=== PATIENT | female | born 1930 | race Caucasian/White ===

== ENCOUNTER 2016-08-13 13:23 | Emergency (ER) | payer MEDICARE, BC ==
[2016-08-13] MEDS ORDERED: Sodium Chloride 0.9% 1,000 ML IV STA (15:39)
--- NOTE | 2016-08-13 15:46 | EDM.PDOC ---
ED HPI GI/ABDOMINAL - General Chief Complaint: Abdominal Pain Stated Complaint: HAS A COLOSTOMY BAG/SOMETHING WRONG Time Seen by Provider: 08/13/16 15:20 Source: Reports: Patient, RN notes reviewed History Limitations: Reports: Physical impairment - History of Present Illness INITIAL COMMENTS - FREE TEXT/NARRATIVE: 86-year-old female presents emergency Department day complaint of stool in her colostomy bag and stool per rectum she had a colostomy done in 2004 she states she's never had this issue before she is producing formed stool in the rectum she does feel the urge to defecate, she is also complaining of hip pain and generalized abdominal discomfort difficult to obtain review of systems secondary to hearing deficit - Related Data Allergies/ADRs: Allergies Allergy/AdvReac Type Severity Reaction Status Date / Time celecoxib [From Celebrex] AdvReac Nausea Verified 08/13/16 14:55 leflunomide [From Arava] AdvReac Diarrhea Verified 08/13/16 14:55 venlafaxine HCl AdvReac Nausea Verified 08/13/16 14:55 [From Effexor] Home Meds: Home Meds Docusate Sodium [Colace] 200 mg PO BID PRN 04/14/13 [History] Dorzolamide HCl [Trusopt] 1 drop EYEBOTH BID 04/14/13 [History] Folic Acid/Vitamin B Comp W-C [Nephrocaps Softgel] 1 mg PO DAILY 04/14/13 [ History] Levothyroxine [Synthroid] 75 mcg PO ACBRK 04/14/13 [History] Multivitamin [Multi-Vitamin Daily] 1 each PO DAILY 04/14/13 [History] Niacin [Niaspan] 500 mg PO BID 04/14/13 [History] Potassium Chloride [Klor-Con M20] 20 meq PO DAILY 04/14/13 [History] Simvastatin [Zocor] 20 mg PO BEDTIME 04/14/13 [History] predniSONE [Prednisone] 5 mg PO DAILY 04/14/13 [History] Folic Acid 1 mg PO DAILY 01/18/14 [History] Cholecalciferol (Vitamin D3) [Vitamin D3] 1,000 unit PO DAILY 04/15/14 [History] Furosemide [Lasix] 40 mg PO BID 06/03/14 [History] Hydrocodone/Acetaminophen [Hydrocodon-Acetaminophn 10-325] 1 each PO Q6HR PRN [History] Calcium Carbonate/Vitamin D3 [Calcium 600 + Vit D 400 Softgl] 1 cap PO BID 03/29 [History] Ferrous Sulfate 325 mg PO DAILY 03/29/15 [History] Omeprazole 20 mg PO QAM 03/29/15 [History] Warfarin [Coumadin] 1.5 mg PO MOWETHFRSA 10/30/15 [History] Warfarin [Coumadin] 2.5 mg PO ASDIRECTED 10/30/15 [History] Diltiazem HCl [Diltiazem 24Hr Cd] 300 mg PO BEDTIME #90 cap.er.24h 06/07/16 [Rx] Metoprolol Succinate [Toprol XL] 50 mg PO DAILY #90 tab.er 06/07/16 [Rx] Digoxin 1 tab PO ASDIRECTED 08/13/16 [History] tiZANidine HCl [Tizanidine HCl] 4 mg PO DAILY 08/13/16 [History] Past Medical History HEENT History: Reports: Cataract, Glaucoma, Impaired vision Cardiovascular History: Reports: Afib, Arrhythmia, Blood clots/VTE/DVT, Heart murmur, High cholesterol, Hypertension, Pacemaker Gastrointestinal History: Reports: Chronic constipation, GERD Genitourinary History: Reports: Renal disease 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: Musculoskeletal History: Reports: Amputation, Arthritis, Fracture Endocrine/Metabolic History: Reports: Hypothyroidism Hematologic History: Reports: Blood transfusion(s) Oncologic (Cancer) History: Reports: Basal cell carcinoma Dermatologic History: Reports: None - Infectious Disease History Infectious Disease History: Reports: Chicken pox, Measles - Past Surgical History HEENT Surgical History: Reports: Cataract surgery, Other (see below) Other HEENT Surgeries/Procedures: dysphagia Cardiovascular Surgical History: Reports: None GI Surgical History: Reports: Colonoscopy, Rae fundoplication, Small bowel Female Surgical History: Reports: Hysterectomy Endocrine Surgical History: Reports: None Musculoskeletal Surgical History: Reports: Amputation, Carpal tunnel, Knee replacement Dermatological Surgical History: Reports: Skin biopsy Social & Family History - Family History Family Medical History: Noncontributory - Tobacco Use Smoking Status *Q: Never Smoker Second Hand Smoke Exposure: No - Caffeine Use Caffeine Use: Reports: Coffee Other Caffeine Use: rarely - Alcohol Use Days Per Week of Alcohol Use: 0 Number of Drinks Per Day: 0 Total Drinks Per Week: 0 - Recreational Drug Use Recreational Drug Use: No - Living Situation & Occupation Living situation: Reports: , with spouse Occupation: retired ED ROS GENERAL - Review of Systems Review Of Systems: Unable To Obtain ED EXAM, GI/ABD - Physical Exam Exam: See Below Text/Narrative:: General: female, not in any distress, alert and oriented x3 HEENT: head is atraumatic normocephalic, eyes pupils equal round reactive to light andpostsurgical changes noted to the left inferior and superior lids lateral aspect. Ears tympanic membranes clear and posada landmarks and light reflex are present bilaterally canals are clear. Nose no septal deviation, nares are clear , no blood present. Mouth mucosa is moist and pink no erythema or exudate noted in soft palate, tongue is midline uvula is midline, dentures in place. Neck: Supple no thyromegaly no tracheal deviation. Nodes: Cervical nodes subclavicular nodes nontender no palpable lymphadenopathy noted. Lungs: clear to auscultation bilaterally with symmetrical respirations, no adventitious noise appreciated. CV: Regular rate and rhythm S1 and S2 appreciated no murmurs rubs or gallops noted. Abdomen: Soft, generalized tenderness to palpation left lower quadrant, no palpable masses or organomegaly appreciated, no distention no guarding bowel sounds are present, colostomy bag in place open and functioning. Neuro: Cranial nerves II through XII grossly intact Skin: Warm and dry, intact Extremities: No lower extremity edema appreciated, Course - Vital Signs Last Recorded V/S: Last Vital Signs Temp 98.4 F 08/13/16 14:44 Pulse 97 08/13/16 17:59 Resp 20 08/13/16 17:59 BP 207/115 H 08/13/16 17:59 Pulse Ox 98 08/13/16 17:59 - Orders/Labs/Meds Orders: Active Orders 24 hr Category Date Time Status Peripheral IV Care [RC] . DIRECTED Care 08/13/16 15:41 Active Abdomen Pelvis w Cont [CT] Urgent Exams 08/13/16 16:31 Taken Iopamidol [Isovue-300 (61%)] Med 08/13/16 16:30 Active 70 ml IV . DIRECTED PRN Sodium Chloride 0.9% [Normal Saline] 70 ml Med 08/13/16 16:30 Active IV ASDIRECTED Sodium Chloride 0.9% [Saline Flush] Med 08/13/16 15:39 Active 10 ml FLUSH ASDIRECTED PRN Peripheral IV Insertion Adult [OM.PC] Urgent Oth 08/13/16 15:39 Ordered Medication Orders Sodium Chloride (Normal Saline) 70 mls @ 3 mls/sec IV ASDIRECTED ALICIA Last Admin: 08/13/16 16:50 Dose: 3 mls/sec Iopamidol (Isovue-300 (61%)) 70 ml IV . DIRECTED PRN PRN Reason: RADIOLOGY EXAM Stop: 08/14/16 16:31 Last Admin: 08/13/16 16:50 Dose: 70 ml Sodium Chloride (Saline Flush) 10 ml FLUSH ASDIRECTED PRN PRN Reason: Keep Vein Open Last Admin: 08/13/16 16:50 Dose: 10 ml Admin: 08/13/16 16:33 Dose: 10 ml Labs: Laboratory Tests 08/13/16 08/13/16 08/13/16 Range/Units 15:56 15:56 15:56 WBC 6.7 (4.5-11.0) K/uL RBC 4.71 (3.30-5.50) M/uL Hgb 13.7 (12.0-15.0) g/dL Hct 43.7 (36.0-48.0) % MCV 93 (80-98) fL MCH 29 (27-31) pg MCHC 31 L (32-36) % Plt Count 233 (150-400) K/uL Neut % (Auto) 78 H (36-66) % Lymph % (Auto) 18 L (24-44) % [place] % (Auto) 3 (2-6) % Eos % (Auto) 1 L (2-4) % Baso % (Auto) 0 (0-1) % Sodium 141 (140-148) mmol/L Potassium 5.2 (3.6-5.2) mmol/L Chloride 107 (100-108) mmol/L Carbon Dioxide 26 (21-32) mmol/L Anion Gap 8.2 (5.0-14.0) mmol/L BUN 20 H (7-18) mg/dL Creatinine 1.2 H (0.6-1.0) mg/dL Est Cr Clr Drug Dosing 24.62 mL/min Estimated GFR (MDRD) 43 L (>60) Glucose 105 (74-106) mg/dL Lactic Acid 1.4 (0.4-2.0) mmol/L Calcium 8.2 L (8.5-10.1) mg/dL Total Bilirubin 0.3 (0.2-1.0) mg/dL AST 19 (15-37) U/L ALT 20 (12-78) U/L Alkaline Phosphatase 37 L (46-116) U/L Total Protein 7.8 (6.4-8.2) g/dL Albumin 3.1 L (3.4-5.0) g/dL Globulin 4.7 H (2.3-3.5) g/dL Albumin/Globulin Ratio 0.7 L (1.2-2.2) Lipase 209 (73-393) U/L Urine Color Urine Appearance Urine pH (4.5-8.0) Ur Specific [place] (1.008-1.030) Urine Protein (NEGATIVE) mg/dL Urine Glucose (UA) (NEGATIVE) mg/dL Urine Ketones (NEGATIVE) mg/dL Urine Occult Blood (NEGATIVE) Urine Nitrite (NEGATIVE) Urine Bilirubin (NEGATIVE) Urine Urobilinogen (NORMAL) mg/dL Ur Leukocyte Esterase (NEGATIVE) Urine RBC (0-5) Urine WBC (0-5) Ur Epithelial Cells Amorphous Sediment Urine Bacteria Urine Mucus 08/13/16 Range/Units 16:13 WBC (4.5-11.0) K/uL RBC (3.30-5.50) M/uL Hgb (12.0-15.0) g/dL Hct (36.0-48.0) % MCV (80-98) fL MCH (27-31) pg MCHC (32-36) % Plt Count (150-400) K/uL Neut % (Auto) (36-66) % Lymph % (Auto) (24-44) % [place] % (Auto) (2-6) % Eos % (Auto) (2-4) % Baso % (Auto) (0-1) % Sodium (140-148) mmol/L Potassium (3.6-5.2) mmol/L Chloride (100-108) mmol/L Carbon Dioxide (21-32) mmol/L Anion Gap (5.0-14.0) mmol/L BUN (7-18) mg/dL Creatinine (0.6-1.0) mg/dL Est Cr Clr Drug Dosing mL/min Estimated GFR (MDRD) (>60) Glucose (74-106) mg/dL Lactic Acid (0.4-2.0) mmol/L Calcium (8.5-10.1) mg/dL Total Bilirubin (0.2-1.0) mg/dL AST (15-37) U/L ALT (12-78) U/L Alkaline Phosphatase (46-116) U/L Total Protein (6.4-8.2) g/dL Albumin (3.4-5.0) g/dL Globulin (2.3-3.5) g/dL Albumin/Globulin Ratio (1.2-2.2) Lipase (73-393) U/L Urine Color Yellow Urine Appearance Clear Urine pH 7.0 (4.5-8.0) Ur Specific [place] 1.015 (1.008-1.030) Urine Protein Negative (NEGATIVE) mg/dL Urine Glucose (UA) Normal (NEGATIVE) mg/dL Urine Ketones Negative (NEGATIVE) mg/dL Urine Occult Blood Negative (NEGATIVE) Urine Nitrite Negative (NEGATIVE) Urine Bilirubin Negative (NEGATIVE) Urine Urobilinogen Normal (NORMAL) mg/dL Ur Leukocyte Esterase Negative (NEGATIVE) Urine RBC 0-5 (0-5) Urine WBC 0-5 (0-5) Ur Epithelial Cells Few Amorphous Sediment Not seen Urine Bacteria Few Urine Mucus Not seen Meds: Medications Generic Name Dose Route Start Last Admin Trade Name Freq PRN Reason Stop Dose Admin Sodium Chloride 70 mls @ 3 mls/sec 08/13/16 16:30 08/13/16 16:50 Normal Saline IV 3 mls/sec ASDIRECTED ALICIA Administration Iopamidol 70 ml 08/13/16 16:30 08/13/16 16:50 Isovue-300 (61%) IV 08/14/16 16:31 70 ml . DIRECTED PRN Administration RADIOLOGY EXAM Sodium Chloride 10 ml 08/13/16 15:39 08/13/16 16:50 Saline Flush FLUSH 10 ml ASDIRECTED PRN Administration Keep Vein Open Discontinued Medications Generic Name Dose Route Start Last Admin Trade Name Freq PRN Reason Stop Dose Admin Hydromorphone HCl 0.5 mg 08/13/16 16:24 08/13/16 17:04 Dilaudid IVPUSH 08/13/16 16:25 0.5 mg ONETIME ONE Administration Sodium Chloride 1,000 mls @ 500 mls/hr 08/13/16 15:39 08/13/16 17:00 Normal Saline IV 08/13/16 17:38 500 mls/hr .BOLUS STA Administration Ondansetron HCl 4 mg 08/13/16 16:24 08/13/16 17:01 Zofran IVPUSH 08/13/16 16:25 4 mg ONETIME ONE Administration Departure - Departure Time of Disposition: 18:15 Disposition: Home, Self-Care 01 Condition: good Clinical Impression: Colostomy complication Forms: ED Department Discharge Additional Instructions: please call to the [facility] in the morning for an appointment with Dr. Loyd, use ibuprofen as needed for pain, call or return to the ed with any new symptoms - My Orders Last 24 Hours: My Active Orders 08/13/16 15:39 Sodium Chloride 0.9% [Saline Flush] 10 ml FLUSH ASDIRECTED PRN Peripheral IV Insertion Adult [OM.PC] Urgent 08/13/16 15:41 Peripheral IV Care [RC] . DIRECTED 08/13/16 16:30 Iopamidol [Isovue-300 (61%)] 70 ml IV . DIRECTED PRN Sodium Chloride 0.9% [Normal Saline] 70 ml IV ASDIRECTED 08/13/16 16:31 Abdomen Pelvis w Cont [CT] Urgent - Assessment/Plan Last 24 Hours: My Active Orders 08/13/16 15:39 Sodium Chloride 0.9% [Saline Flush] 10 ml FLUSH ASDIRECTED PRN Peripheral IV Insertion Adult [OM.PC] Urgent 08/13/16 15:41 Peripheral IV Care [RC] . DIRECTED 08/13/16 16:30 Iopamidol [Isovue-300 (61%)] 70 ml IV . DIRECTED PRN Sodium Chloride 0.9% [Normal Saline] 70 ml IV ASDIRECTED 08/13/16 16:31 Abdomen Pelvis w Cont [CT] Urgent Plan: Assessment Acuity = acute Site and laterality = rectal sensation complicated in a patient with known Domingo procedure in 2004 Etiology = unclear etiology Manifestations = none Location of injury = home Lab values = CBC unremarkable creatinine elevated at 1.2 consistent chronic renal failure stage GIII be a bit low at 3.[address] scan IMPRESSION: 1. Numerous tiny cortical cysts are present in the kidneys bilaterally. Correlation with patient history would be helpful to exclude lithium induced nephrotoxicity. 2. A loculated small right pleural fluid collection is present with calcified margins and layering milk of calcium. 3. A small fat containing peristomal hernia is noted. There is also small fat containing midline ventral hernia is seen. Plan she is to followup with Dr. Loyd in the clinic this next week for reevaluation , use ibuprofen as needed for pain control Patient was in agreement with the plan all questions were answered, they were instructed to return to the emergency department or call for worsening symptoms. This note was dictated using [employer] voice recognition software please call with any questions.
[2016-08-13] MEDS ORDERED: HYDROmorphone 0.5 MG/0.5 ML Syringe IVPUSH ONE (16:24)
[2016-08-13] MEDS ORDERED: Ondansetron 4 MG/2 ML SDV IVPUSH ONE (16:24)
[2016-08-13] MEDS ORDERED: Iopamidol 612 MG/ML 100 ML Bottle IV PRN (16:30)
[2016-08-13] MEDS: Sodium Chloride 0.9% 10 ML Syringe FLUSH PRN ×2 (16:33→16:50)
[2016-08-13 18:00] VITALS: BP 207/115
== END 2016-08-13 18:40 | disposition home or self-care (01) ==
LOC: JP.ED 13:23
DX: K94.00 Colostomy complication, unspecified (principal); I48.91 Unspecified atrial fibrillation; E03.9 Hypothyroidism, unspecified; K21.9 Gastro-esophageal reflux disease without esophagitis; Z88.8 Allergy status to other drugs, medicaments and biological substances; Z79.899 Other long term (current) drug therapy; Z90.710 Acquired absence of both cervix and uterus; Z98.890 Other specified postprocedural states
CPT/HCPCS: 36415; 74177; 80053; 81001; 83605; 83690; 85025; 96361; 96374; 96375; 99284; J1170; J2405; J7030; J7040; J7050; Q9967

== ENCOUNTER 2016-09-07 16:15 | Observation (INO) | payer MEDICARE, BC ==
[2016-09-07] MEDS ORDERED: Sodium Chloride 0.9% 1,000 ML IV SCH ×2 (17:15→20:37)
--- NOTE | 2016-09-07 17:33 | EDM.PDOC ---
<Cooper Mijares - Last Filed: 09/07/16 17:28> ED HPI GI/ABDOMINAL - General Chief Complaint: Abdominal Pain Stated Complaint: STOMACH PAIN Time Seen by Provider: 09/07/16 16:45 Source: Reports: Patient, Family History Limitations: Reports: No limitations (With that in) - History of Present Illness INITIAL COMMENTS - FREE TEXT/NARRATIVE: 86-year-old female with worsening lower abdominal pain for the past 3 days, becoming uncomfortable and unable to move. Hasn't been able to eat due to the discomfort, colostomy is still functioning. No back pain. Some questionable dysuria. She denies being chilled but she is running a low-grade fever at 100.3. Location: [facility] Quality: Reports: cramping, stabbing Severity: moderate Worsens with: Reports: other (Markedly worse with palpation or movement) Associated Symptoms (-Female): Reports: loss of appetite. Denies: chest pain , diarrhea - Related Data Allergies/ADRs: Allergies Allergy/AdvReac Type Severity Reaction Status Date / Time celecoxib [From Celebrex] AdvReac Nausea Verified 09/07/16 16:34 leflunomide [From Arava] AdvReac Diarrhea Verified 09/07/16 16:34 venlafaxine HCl AdvReac Nausea Verified 09/07/16 16:34 [From Effexor] Home Meds: Home Meds Docusate Sodium [Colace] 200 mg PO BID PRN 04/14/13 [History] Dorzolamide HCl [Trusopt] 1 drop EYEBOTH BID 04/14/13 [History] Folic Acid/Vitamin B Comp W-C [Nephrocaps Softgel] 1 mg PO DAILY 04/14/13 [ History] Levothyroxine [Synthroid] 75 mcg PO ACBRK 04/14/13 [History] Multivitamin [Multi-Vitamin Daily] 1 each PO DAILY 04/14/13 [History] Niacin [Niaspan] 500 mg PO BID 04/14/13 [History] Potassium Chloride [Klor-Con M20] 20 meq PO DAILY 04/14/13 [History] Simvastatin [Zocor] 20 mg PO BEDTIME 04/14/13 [History] predniSONE [Prednisone] 5 mg PO DAILY 04/14/13 [History] Folic Acid 1 mg PO DAILY 01/18/14 [History] Cholecalciferol (Vitamin D3) [Vitamin D3] 1,000 unit PO DAILY 04/15/14 [History] Furosemide [Lasix] 40 mg PO BID 06/03/14 [History] Calcium Carbonate/Vitamin D3 [Calcium 600 + Vit D 400 Softgl] 1 cap PO BID 03/29 [History] Ferrous Sulfate 325 mg PO DAILY 03/29/15 [History] Omeprazole 20 mg PO QAM 03/29/15 [History] Warfarin [Coumadin] 1.5 mg PO MOWETHFRSA 10/30/15 [History] Warfarin [Coumadin] 2.5 mg PO ASDIRECTED 10/30/15 [History] Diltiazem HCl [Diltiazem 24Hr Cd] 300 mg PO BEDTIME #90 cap.er.24h 06/07/16 [Rx] Metoprolol Succinate [Toprol XL] 50 mg PO DAILY #90 tab.er 06/07/16 [Rx] Digoxin 1 tab PO Q48H 08/13/16 [History] Past Medical History HEENT History: Reports: Cataract, Glaucoma, Hard of hearing, Impaired vision Cardiovascular History: Reports: Afib, Arrhythmia, Blood clots/VTE/DVT, Heart murmur, High cholesterol, Hypertension, Pacemaker Respiratory History: Reports: Pneumonia, recurrent Gastrointestinal History: Reports: Chronic constipation, GERD Genitourinary History: Reports: Renal disease, UTI, recurrent 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: Musculoskeletal History: Reports: Amputation, Arthritis, Fracture Psychiatric History: Reports: Anxiety Endocrine/Metabolic History: Reports: Hypothyroidism Hematologic History: Reports: Blood transfusion(s) Oncologic (Cancer) History: Reports: Basal cell carcinoma Dermatologic History: Reports: None - Infectious Disease History Infectious Disease History: Reports: Chicken pox, Measles - Past Surgical History HEENT Surgical History: Reports: Cataract surgery, Other (see below) Other HEENT Surgeries/Procedures: dysphagia Cardiovascular Surgical History: Reports: None, Pacer Respiratory Surgical History: Reports: Lung Resection GI Surgical History: Reports: Colonoscopy, Colostomy, Rae fundoplication, Small bowel Female Surgical History: Reports: Hysterectomy Endocrine Surgical History: Reports: None Musculoskeletal Surgical History: Reports: Amputation, Carpal tunnel, Knee replacement Dermatological Surgical History: Reports: Skin biopsy Social & Family History - Family History Family Medical History: Noncontributory - Tobacco Use Smoking Status *Q: Never Smoker Second Hand Smoke Exposure: No - Caffeine Use Caffeine Use: Reports: None Other Caffeine Use: rarely - Alcohol Use Days Per Week of Alcohol Use: 0 Number of Drinks Per Day: 0 Total Drinks Per Week: 0 - Recreational Drug Use Recreational Drug Use: No - Living Situation & Occupation Living situation: Reports: , with spouse Occupation: retired ED ROS GENERAL - Review of Systems Review Of Systems: See Below Constitutional: Reports: malaise. Denies: chills, weakness HEENT: Reports: Other (Very hard of hearing) Respiratory: Denies: Shortness of Breath, Cough Cardiovascular: Denies: Chest pain GI/Abdominal: Reports: Abdominal pain. Denies: Vomiting : Reports: dysuria (She has developed some mild dysuria and increased urinary frequency) Skin: Reports: other (Has an ulcerative lesion on the back of the left lower leg ) Psychiatric: Reports: No symptoms ED EXAM, GI/ABD - Physical Exam Exam: See Below Exam Limited By: No limitations General Appearance: alert, moderate distress Eyes: bilateral: normal appearance (No jaundice) Respiratory/Chest: no respiratory distress Cardiovascular: irregularly irregular GI/Abdominal: soft, tenderness, guarding, rebound (Abdomen is relatively soft except the right lower quadrant where she is guarding, has rebound and is firm) Neurological: alert, oriented Course - Vital Signs Last Recorded V/S: Last Vital Signs Temp 37.9 C 09/07/16 16:41 Pulse 101 H 09/07/16 17:59 Resp 16 09/07/16 17:59 BP 175/102 H 09/07/16 17:59 Pulse Ox 98 09/07/16 17:59 - Orders/Labs/Meds Orders: Active Orders 24 hr Category Date Time Status Abdomen Pelvis wo Cont [CT] Stat Exams 09/07/16 17:32 Taken CULTURE URINE [RM] Stat Lab 09/07/16 18:18 Uncollected Sodium Chloride 0.9% [Normal Saline] 1,000 ml Med 09/07/16 17:15 Active IV ASDIRECTED Medication Orders Sodium Chloride (Normal Saline) 1,000 mls @ 150 mls/hr IV ASDIRECTED ALICIA Last Admin: 09/07/16 17:24 Dose: 150 mls/hr Labs: Laboratory Tests 09/07/16 09/07/16 09/07/16 Range/Units 17:09 17:09 17:12 WBC 6.7 (4.5-11.0) K/uL RBC 4.48 (3.30-5.50) M/uL Hgb 13.2 (12.0-15.0) g/dL Hct 41.6 (36.0-48.0) % MCV 93 (80-98) fL MCH 30 (27-31) pg MCHC 32 (32-36) % Plt Count 256 (150-400) K/uL Neut % (Auto) 75 H (36-66) % Lymph % (Auto) 20 L (24-44) % [place] % (Auto) 4 (2-6) % Eos % (Auto) 1 L (2-4) % Baso % (Auto) 0 (0-1) % Sodium 143 (140-148) mmol/L Potassium 4.9 (3.6-5.2) mmol/L Chloride 109 H (100-108) mmol/L Carbon Dioxide 25 (21-32) mmol/L Anion Gap 13.9 (5.0-14.0) mmol/L BUN 25 H (7-18) mg/dL Creatinine 1.3 H (0.6-1.0) mg/dL Est Cr Clr Drug Dosing 22.73 mL/min Estimated GFR (MDRD) 39 L (>60) Glucose 114 H (74-106) mg/dL Calcium 8.1 L (8.5-10.1) mg/dL Total Bilirubin 0.2 (0.2-1.0) mg/dL AST 16 (15-37) U/L ALT 22 (12-78) U/L Alkaline Phosphatase 58 (46-116) U/L C-Reactive Protein (0.0-0.3) mg/dL Total Protein 7.8 (6.4-8.2) g/dL Albumin 2.8 L (3.4-5.0) g/dL Globulin 5.0 H (2.3-3.5) g/dL Albumin/Globulin Ratio 0.6 L (1.2-2.2) Amylase 47 (25-115) U/L Lipase 183 (73-393) U/L Urine Color Yellow Urine Appearance Cloudy Urine pH 6.5 (4.5-8.0) Ur Specific [place] 1.015 (1.008-1.030) Urine Protein Negative (NEGATIVE) mg/dL Urine Glucose (UA) Normal (NEGATIVE) mg/dL Urine Ketones Negative (NEGATIVE) mg/dL Urine Occult Blood Large (NEGATIVE) Urine Nitrite Negative (NEGATIVE) Urine Bilirubin Negative (NEGATIVE) Urine Urobilinogen Normal (NORMAL) mg/dL Ur Leukocyte Esterase Large (NEGATIVE) Urine RBC 5-10 H (0-5) Urine WBC Packed H (0-5) Ur Epithelial Cells Few Amorphous Sediment Not seen Urine Bacteria Many Urine Mucus Not seen 09/07/16 Range/Units 18:26 WBC (4.5-11.0) K/uL RBC (3.30-5.50) M/uL Hgb (12.0-15.0) g/dL Hct (36.0-48.0) % MCV (80-98) fL MCH (27-31) pg MCHC (32-36) % Plt Count (150-400) K/uL Neut % (Auto) (36-66) % Lymph % (Auto) (24-44) % [place] % (Auto) (2-6) % Eos % (Auto) (2-4) % Baso % (Auto) (0-1) % Sodium (140-148) mmol/L Potassium (3.6-5.2) mmol/L Chloride (100-108) mmol/L Carbon Dioxide (21-32) mmol/L Anion Gap (5.0-14.0) mmol/L BUN (7-18) mg/dL Creatinine (0.6-1.0) mg/dL Est Cr Clr Drug Dosing mL/min Estimated GFR (MDRD) (>60) Glucose (74-106) mg/dL Calcium (8.5-10.1) mg/dL Total Bilirubin (0.2-1.0) mg/dL AST (15-37) U/L ALT (12-78) U/L Alkaline Phosphatase (46-116) U/L C-Reactive Protein 2.60 H (0.0-0.3) mg/dL Total Protein (6.4-8.2) g/dL Albumin (3.4-5.0) g/dL Globulin (2.3-3.5) g/dL Albumin/Globulin Ratio (1.2-2.2) Amylase (25-115) U/L Lipase (73-393) U/L Urine Color Urine Appearance Urine pH (4.5-8.0) Ur Specific [place] (1.008-1.030) Urine Protein (NEGATIVE) mg/dL Urine Glucose (UA) (NEGATIVE) mg/dL Urine Ketones (NEGATIVE) mg/dL Urine Occult Blood (NEGATIVE) Urine Nitrite (NEGATIVE) Urine Bilirubin (NEGATIVE) Urine Urobilinogen (NORMAL) mg/dL Ur Leukocyte Esterase (NEGATIVE) Urine RBC (0-5) Urine WBC (0-5) Ur Epithelial Cells Amorphous Sediment Urine Bacteria Urine Mucus Meds: Medications Generic Name Dose Route Start Last Admin Trade Name Freq PRN Reason Stop Dose Admin Sodium Chloride 1,000 mls @ 150 mls/hr 09/07/16 17:15 09/07/16 17:24 Normal Saline IV 150 mls/hr ASDIRECTED ALICIA Administration - Re-Assessments/Exams Free Text/Narrative Re-Assessment/Exam: 09/07/16 17:32 An IV was started, hydration started at 150 mL an hour. Amylase lipase CBC and CMP were obtained as well as a UA, CT of the abdomen and pelvis without contrast obtained. Departure - Departure Disposition: Admitted As Inpatient 67 Clinical Impression: Dehydration, UTI (urinary tract infection), Constipation Forms: ED Department Discharge Care Plan Goals: admit to Dr Laird - My Orders Last 24 Hours: My Active Orders 09/07/16 18:18 CULTURE URINE [RM] Stat - Assessment/Plan Last 24 Hours: My Active Orders 09/07/16 18:18 CULTURE URINE [RM] Stat <Jenifer Smith - Last Filed: 09/07/16 19:07> Course - Re-Assessments/Exams Free Text/Narrative Re-Assessment/Exam: 09/07/16 19:04 cat scan did not show acute findings. Her urine is infected/ Her crp is elevated. She has alot of stool in the rt colon. Will admit for pain control and treatment of her hydration and UTI. Departure - Departure Time of Disposition: 19:06 Condition: fair
[2016-09-07] MEDS ORDERED: cefTRIAXone 1 GM in Sodium Chloride 0.9% 50 ML IV SCH (19:15)
--- NOTE | 2016-09-07 19:56 | PCM.HP ---
H&P History of Present Illness - General Date of Service: 09/07/16 Admit Problem/Dx: Admission Diagnosis/Problem Admission Diagnosis/Problem Constipation Source of Information: Patient, Family, Old records, Provider, RN notes reviewed History Limitations: Reports: Other (Severe hearing impairment) - History of Present Illness Initial Comments - Free Text/Narative: Ms. Oreilly is an 86-year-old woman who is admitted to observation status because of right lower quadrant abdominal pain secondary to constipation. 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 Today developed significant pain in her right lower abdomen with radiation to the back. White blood cell count is normal and she is been afebrile with stable vital signs. CT scan of the abdomen and pelvis shows a large amount of stool within the colon but no other significant abnormalities to explain her pain. Urinalysis does show evidence of underlying urinary tract infection. Right Lower Abdomen Pain Score (Numeric/FACES): 10 - Related Data Allergies/Adverse Reactions: Allergies Allergy/AdvReac Type Severity Reaction Status Date / Time celecoxib [From Celebrex] AdvReac Nausea Verified 09/07/16 16:34 leflunomide [From Arava] AdvReac Diarrhea Verified 09/07/16 16:34 venlafaxine HCl AdvReac Nausea Verified 09/07/16 16:34 [From Effexor] Home Medications: Home Meds Docusate Sodium [Colace] 200 mg PO BID PRN 04/14/13 [History] Dorzolamide HCl [Trusopt] 1 drop EYEBOTH BID 04/14/13 [History] Folic Acid/Vitamin B Comp W-C [Nephrocaps Softgel] 1 mg PO DAILY 04/14/13 [ History] Levothyroxine [Synthroid] 75 mcg PO ACBRK 04/14/13 [History] Multivitamin [Multi-Vitamin Daily] 1 each PO DAILY 04/14/13 [History] Niacin [Niaspan] 500 mg PO BID 04/14/13 [History] Potassium Chloride [Klor-Con M20] 20 meq PO DAILY 04/14/13 [History] Simvastatin [Zocor] 20 mg PO BEDTIME 04/14/13 [History] predniSONE [Prednisone] 5 mg PO DAILY 04/14/13 [History] Folic Acid 1 mg PO DAILY 01/18/14 [History] Cholecalciferol (Vitamin D3) [Vitamin D3] 1,000 unit PO DAILY 04/15/14 [History] Furosemide [Lasix] 40 mg PO BID 06/03/14 [History] Calcium Carbonate/Vitamin D3 [Calcium 600 + Vit D 400 Softgl] 1 cap PO BID 03/29 [History] Ferrous Sulfate 325 mg PO DAILY 03/29/15 [History] Omeprazole 20 mg PO QAM 03/29/15 [History] Warfarin [Coumadin] 1.5 mg PO MOWETHFRSA 10/30/15 [History] Warfarin [Coumadin] 2.5 mg PO ASDIRECTED 10/30/15 [History] Diltiazem HCl [Diltiazem 24Hr Cd] 300 mg PO BEDTIME #90 cap.er.24h 06/07/16 [Rx] Metoprolol Succinate [Toprol XL] 50 mg PO DAILY #90 tab.er 06/07/16 [Rx] Digoxin 1 tab PO Q48H 08/13/16 [History] Past Medical History HEENT History: Reports: Cataract, Glaucoma, Hard of hearing, Impaired vision Cardiovascular History: Reports: Afib, Arrhythmia, Blood clots/VTE/DVT, Heart murmur, High cholesterol, Hypertension, Pacemaker Respiratory History: Reports: Pneumonia, recurrent Gastrointestinal History: Reports: Chronic constipation, GERD Genitourinary History: Reports: Renal disease, UTI, recurrent TROUBLE LOCATOR TEST DESK History: Reports: Musculoskeletal History: Reports: Amputation, Arthritis, Fracture Psychiatric History: Reports: Anxiety Endocrine/Metabolic History: Reports: Hypothyroidism Hematologic History: Reports: Blood transfusion(s) Oncologic (Cancer) History: Reports: Basal cell carcinoma Dermatologic History: Reports: None - Infectious Disease History Infectious Disease History: Reports: Chicken pox, Measles - Past Surgical History HEENT Surgical History: Reports: Cataract surgery, Other (see below) Other HEENT Surgeries/Procedures: dysphagia Cardiovascular Surgical History: Reports: None, Pacer Respiratory Surgical History: Reports: Lung Resection GI Surgical History: Reports: Colonoscopy, Colostomy, Rae fundoplication, Small bowel Female Surgical History: Reports: Hysterectomy Endocrine Surgical History: Reports: None Musculoskeletal Surgical History: Reports: Amputation, Carpal tunnel, Knee replacement Dermatological Surgical History: Reports: Skin biopsy Social & Family History - Family History Family Medical History: Noncontributory - Tobacco Use Smoking Status *Q: Never Smoker Second Hand Smoke Exposure: No - Caffeine Use Caffeine Use: Reports: None Other Caffeine Use: rarely - Alcohol Use Days Per Week of Alcohol Use: 0 Number of Drinks Per Day: 0 Total Drinks Per Week: 0 - Recreational Drug Use Recreational Drug Use: No - Living Situation & Occupation Living situation: Reports: , with spouse Occupation: retired H&P Review of Systems - Review of Systems: Review Of Systems: Unable To Obtain General: Reports: ROS unobtainable (Secondary to severe hearing impairment) Exam - Exam Exam: See Below - Vital Signs Vital Signs: Last Vital Signs Temp 100.3 F 09/07/16 16:41 Pulse 116 H 09/07/16 19:26 Resp 16 09/07/16 19:26 BP 176/139 H 09/07/16 19:26 Pulse Ox 98 09/07/16 19:26 Weight: 110 lb - Exam Quality Assessment: DVT prophylaxis General: alert, oriented, cooperative, mild distress HEENT: Conjunctiva clear, EOMI, Mucosa moist & pink, Nares patent, Normal nasal septum, Posterior pharynx clear, Pupils equal, Pupils reactive. No: Hearing intact Neck: supple, trachea midline, +2 carotid pulse wo bruit Lungs: Clear to auscultation, Normal respiratory effort Cardiovascular: regular rate, normal S1, normal S2, irregular rhythm. No: systolic murmur, diastolic murmur Abdomen: soft, tenderness, hypoactive bowel sounds. No: organomegaly, peritoneal signs, distention, guarding, rigidity, rebound Back Exam: normal inspection, full range of motion, NT Extremities: 3, normal inspection, 10 Skin: warm, dry, intact Neurological: cranial nerves intact, strength equal bilateral, normal speech, normal tone, sensation intact. No: focal deficit Neuro Extensive - Mental Status: alert, oriented x3, normal mood/affect, normal cognition, memory intact - Patient Data Lab Results last 24 hrs: Laboratory Results - last 24 hr 09/07/16 09/07/16 09/07/16 Range/Units 17:09 17:09 17:12 WBC 6.7 (4.5-11.0) K/uL RBC 4.48 (3.30-5.50) M/uL Hgb 13.2 (12.0-15.0) g/dL Hct 41.6 (36.0-48.0) % MCV 93 (80-98) fL MCH 30 (27-31) pg MCHC 32 (32-36) % Plt Count 256 (150-400) K/uL Neut % (Auto) 75 H (36-66) % Lymph % (Auto) 20 L (24-44) % [place] % (Auto) 4 (2-6) % Eos % (Auto) 1 L (2-4) % Baso % (Auto) 0 (0-1) % PT (9.5-12.0) sec INR (0.80-1.20) Sodium 143 (140-148) mmol/L Potassium 4.9 (3.6-5.2) mmol/L Chloride 109 H (100-108) mmol/L Carbon Dioxide 25 (21-32) mmol/L Anion Gap 13.9 (5.0-14.0) mmol/L BUN 25 H (7-18) mg/dL Creatinine 1.3 H (0.6-1.0) mg/dL Est Cr Clr Drug Dosing 22.73 mL/min Estimated GFR (MDRD) 39 L (>60) Glucose 114 H (74-106) mg/dL Calcium 8.1 L (8.5-10.1) mg/dL Total Bilirubin 0.2 (0.2-1.0) mg/dL AST 16 (15-37) U/L ALT 22 (12-78) U/L Alkaline Phosphatase 58 (46-116) U/L C-Reactive Protein (0.0-0.3) mg/dL Total Protein 7.8 (6.4-8.2) g/dL Albumin 2.8 L (3.4-5.0) g/dL Globulin 5.0 H (2.3-3.5) g/dL Albumin/Globulin Ratio 0.6 L (1.2-2.2) Amylase 47 (25-115) U/L Lipase 183 (73-393) U/L TSH, Ultra Sensitive (0.358-3.740) uIU/mL Urine Color Yellow Urine Appearance Cloudy Urine pH 6.5 (4.5-8.0) Ur Specific [place] 1.015 (1.008-1.030) Urine Protein Negative (NEGATIVE) mg/dL Urine Glucose (UA) Normal (NEGATIVE) mg/dL Urine Ketones Negative (NEGATIVE) mg/dL Urine Occult Blood Large (NEGATIVE) Urine Nitrite Negative (NEGATIVE) Urine Bilirubin Negative (NEGATIVE) Urine Urobilinogen Normal (NORMAL) mg/dL Ur Leukocyte Esterase Large (NEGATIVE) Urine RBC 5-10 H (0-5) Urine WBC Packed H (0-5) Ur Epithelial Cells Few Amorphous Sediment Not seen Urine Bacteria Many Urine Mucus Not seen Digoxin (0.90-2.00) ng/mL 09/07/16 09/07/16 09/07/16 Range/Units 18:26 19:14 19:14 WBC (4.5-11.0) K/uL RBC (3.30-5.50) M/uL Hgb (12.0-15.0) g/dL Hct (36.0-48.0) % MCV (80-98) fL MCH (27-31) pg MCHC (32-36) % Plt Count (150-400) K/uL Neut % (Auto) (36-66) % Lymph % (Auto) (24-44) % [place] % (Auto) (2-6) % Eos % (Auto) (2-4) % Baso % (Auto) (0-1) % PT 41.0 H (9.5-12.0) sec INR 3.71 H (0.80-1.20) Sodium (140-148) mmol/L Potassium (3.6-5.2) mmol/L Chloride (100-108) mmol/L Carbon Dioxide (21-32) mmol/L Anion Gap (5.0-14.0) mmol/L BUN (7-18) mg/dL Creatinine (0.6-1.0) mg/dL Est Cr Clr Drug Dosing mL/min Estimated GFR (MDRD) (>60) Glucose (74-106) mg/dL Calcium (8.5-10.1) mg/dL Total Bilirubin (0.2-1.0) mg/dL AST (15-37) U/L ALT (12-78) U/L Alkaline Phosphatase (46-116) U/L C-Reactive Protein 2.60 H (0.0-0.3) mg/dL Total Protein (6.4-8.2) g/dL Albumin (3.4-5.0) g/dL Globulin (2.3-3.5) g/dL Albumin/Globulin Ratio (1.2-2.2) Amylase (25-115) U/L Lipase (73-393) U/L TSH, Ultra Sensitive (0.358-3.740) uIU/mL Urine Color Urine Appearance Urine pH (4.5-8.0) Ur Specific [place] (1.008-1.030) Urine Protein (NEGATIVE) mg/dL Urine Glucose (UA) (NEGATIVE) mg/dL Urine Ketones (NEGATIVE) mg/dL Urine Occult Blood (NEGATIVE) Urine Nitrite (NEGATIVE) Urine Bilirubin (NEGATIVE) Urine Urobilinogen (NORMAL) mg/dL Ur Leukocyte Esterase (NEGATIVE) Urine RBC (0-5) Urine WBC (0-5) Ur Epithelial Cells Amorphous Sediment Urine Bacteria Urine Mucus Digoxin 0.53 L (0.90-2.00) ng/mL 09/07/16 Range/Units 19:15 WBC (4.5-11.0) K/uL RBC (3.30-5.50) M/uL Hgb (12.0-15.0) g/dL Hct (36.0-48.0) % MCV (80-98) fL MCH (27-31) pg MCHC (32-36) % Plt Count (150-400) K/uL Neut % (Auto) (36-66) % Lymph % (Auto) (24-44) % [place] % (Auto) (2-6) % Eos % (Auto) (2-4) % Baso % (Auto) (0-1) % PT (9.5-12.0) sec INR (0.80-1.20) Sodium (140-148) mmol/L Potassium (3.6-5.2) mmol/L Chloride (100-108) mmol/L Carbon Dioxide (21-32) mmol/L Anion Gap (5.0-14.0) mmol/L BUN (7-18) mg/dL Creatinine (0.6-1.0) mg/dL Est Cr Clr Drug Dosing mL/min Estimated GFR (MDRD) (>60) Glucose (74-106) mg/dL Calcium (8.5-10.1) mg/dL Total Bilirubin (0.2-1.0) mg/dL AST (15-37) U/L ALT (12-78) U/L Alkaline Phosphatase (46-116) U/L C-Reactive Protein (0.0-0.3) mg/dL Total Protein (6.4-8.2) g/dL Albumin (3.4-5.0) g/dL Globulin (2.3-3.5) g/dL Albumin/Globulin Ratio (1.2-2.2) Amylase (25-115) U/L Lipase (73-393) U/L TSH, Ultra Sensitive 2.606 (0.358-3.740) uIU/mL Urine Color Urine Appearance Urine pH (4.5-8.0) Ur Specific [place] (1.008-1.030) Urine Protein (NEGATIVE) mg/dL Urine Glucose (UA) (NEGATIVE) mg/dL Urine Ketones (NEGATIVE) mg/dL Urine Occult Blood (NEGATIVE) Urine Nitrite (NEGATIVE) Urine Bilirubin (NEGATIVE) Urine Urobilinogen (NORMAL) mg/dL Ur Leukocyte Esterase (NEGATIVE) Urine RBC (0-5) Urine WBC (0-5) Ur Epithelial Cells Amorphous Sediment Urine Bacteria Urine Mucus Digoxin (0.90-2.00) ng/mL Result Diagrams: 09/07/16 17:09 09/07/16 17:09 *Q Meaningful Use (ADM) - VTE *Q VTE Criteria *Q: VTE Pharmacological Contraindications *Q: High INR Value - VTE Risk Assess *Q Each Risk Factor Represents 1 Point: None Total Score 1 Point Risk Factors: 0 Each Risk Factor Represents 2 Points: None Total Score 2 Point Risk Factors: 0 Each Risk Factor Represents 3 Points: Age 75 Years or Greater Total Score 3 Point Risk Factors: 3 Each Risk Factor Represents 5 Points: None Total Score 5 Point Risk Factors: 0 Venous Thromboembolism Risk Factor Score *Q: 3 - Stroke *Q Stroke Criteria *Q: - AMI *Q AMI Criteria *Q: Problem List Initiated/Reviewed/Updated: Yes Orders Last 24hrs: Active Orders 24 hr Category Date Time Status Patient Status Manage Transfer [TRANSFER] Routine ADT 09/07/16 19:30 Active Abdomen Pelvis wo Cont [CT] Stat Exams 09/07/16 17:32 Taken CULTURE URINE [RM] Stat Lab 09/07/16 18:00 Received Sodium Chloride 0.9% [Normal Saline] 1,000 ml Med 09/07/16 17:15 Active IV ASDIRECTED cefTRIAXone [Rocephin] 1 gm Med 09/07/16 19:15 Active Sodium Chloride 0.9% [Normal Saline] 50 ml IV Q24H Resuscitation Status Routine Resus Stat 09/07/16 19:33 Ordered Medication Orders Sodium Chloride (Normal Saline) 1,000 mls @ 150 mls/hr IV ASDIRECTED [facility] Last Admin: 09/07/16 17:24 Dose: 150 mls/hr Ceftriaxone Sodium 1 gm/ (Sodium Chloride) 50 mls @ 100 mls/hr IV Q24H [facility] Last Admin: 09/07/16 19:28 Dose: 100 mls/hr Assessment/Plan Comment:: ASSESSMENT AND PLAN RIGHT LOWER CORNER AND ABDOMINAL PAIN SECONDARY TO CONSTIPATION-she's had a previous history of constipation, evaluation today in the emergency room shows no other potential cause of her current symptoms. -Cautious IV fluids for hydration -MiraLAX now -Continue Colace twice daily URINARY TRACT INFECTION -Urine culture pending -Rocephin 1 g IV every 24 hours CHRONIC ATRIAL FIBRILLATION-rate well controlled, on long-term oral anticoagulation with warfarin -Continue outpatient medical regimen -INR now and in a.m. CHRONIC KIDNEY DISEASE STAGE III -Monitor urine output and renal function closely during hospital stay MAINTENANCE ISSUES -DVT prophylaxis; current therapy with warfarin should provide adequate DVT prophylaxis -GI prophylaxis; none indicated -Rai catheter; not indicated -Nutrition; regular diet -Nicotinic dependence; not required CODE STATUS-FULL CODE ADMISSION STATUS-this patient will be admitted to observation status, expect no more than a one night hospital stay for evaluation and management of problems as outlined above. DISPOSITION-anticipate discharge to home after the hospital stay. PRIMARY CARE PROVIDER-Dr. Trujillo
[2016-09-07] MEDS ORDERED: Polyethylene Glycol 3350 Powder 17 GM Packet PO ONE (20:37)
[2016-09-07] MEDS ORDERED: Magnesium Hydroxide 400 MG/5 ML Susp 30 ML Cup PO PRN (20:37)
[2016-09-07] MEDS ORDERED: Sodium Chloride 0.9% 10 ML Syringe FLUSH PRN (20:37)
[2016-09-07] MEDS ORDERED: Docusate Sodium 100 MG Cap PO PRN ×2 (20:37)
[2016-09-07] MEDS ORDERED: oxyCODONE 5 MG Tab PO PRN (20:37)
[2016-09-07] MEDS ORDERED: Ondansetron 4 MG/2 ML SDV IV PRN (20:37)
[2016-09-07] MEDS ORDERED: HYDROmorphone 0.5 MG/0.5 ML Syringe IVPUSH PRN (20:37)
[2016-09-07] MEDS ORDERED: Acetaminophen 325 MG Tab PO PRN (20:37)
[2016-09-07] MEDS ORDERED: Simvastatin 20 MG Tab PO SCH (21:00)
[2016-09-07] MEDS ORDERED: DILTIAZEM HCL 300 MG PO SCH (21:00)
[2016-09-07] MEDS: Furosemide 20 MG Tab PO SCH (22:06)
[2016-09-07] MEDS ORDERED: Diltiazem 180 MG Cap.CD ONE (22:12)
[2016-09-07] MEDS ORDERED: Diltiazem 120 MG Cap.CD ONE (22:12)
[2016-09-08] MEDS: Dorzolamide 2% Ophth Soln 10 ML Bottle EYEBOTH SCH ×2 (01:08→08:35)
[2016-09-08] MEDS ORDERED: Pantoprazole 40 MG Tab.CR PO SCH (07:30)
[2016-09-08] MEDS ORDERED: Levothyroxine 50 MCG Tab PO SCH (07:30)
[2016-09-08] MEDS ORDERED: Levothyroxine 75 MCG Tab PO SCH (08:00)
[2016-09-08] MEDS: Furosemide 20 MG Tab PO SCH (08:38)
[2016-09-08] MEDS ORDERED: predniSONE 5 MG Tab PO SCH (09:00)
[2016-09-08] MEDS ORDERED: Potassium Chloride 20 MEQ Tab.ER PO SCH (09:00)
[2016-09-08] MEDS ORDERED: Non-Formulary Medication 1 Each (Omeprazole [Omeprazole] 20 MG) PO SCH (09:00)
[2016-09-08] MEDS ORDERED: Metoprolol Succinate 50 MG Tab.ER PO SCH (09:00)
[2016-09-08 10:01] VITALS: BP 163/72
[2016-09-08] MEDS ORDERED: cefTRIAXone 1 GM in Sodium Chloride 0.9% 50 ML IV ONE (10:30)
--- NOTE | 2016-09-08 12:55 | PCM.DCSUM1 ---
Discharge Summary - Hospital Course Brief History: This patient is an 86-year-old woman who was admitted through the emergency department to observation status for management of right-sided abdominal pain secondary to constipation. - Discharge Data Discharge Date: 09/08/16 Discharge Disposition: Home, Self-Care 01 Condition: Fair - Discharge Diagnosis/Problem(s) (1) UTI (urinary tract infection) SNOMED Code(s): 09388641 ICD Code: N39.0 - URINARY TRACT INFECTION, SITE NOT SPECIFIED Status: Acute Current Visit: Yes (2) Stage III chronic kidney disease SNOMED Code(s): 333002721 ICD Code: N18.3 - CHRONIC KIDNEY DISEASE, STAGE 3 (MODERATE) Status: Chronic Current Visit: No (3) Rheumatoid arthritis SNOMED Code(s): 95074345 ICD Code: M06.9 - RHEUMATOID ARTHRITIS, UNSPECIFIED Status: Chronic Current Visit: No Qualifiers: Rheumatoid factor presence: unspecified presence Laterality: bilateral - Patient Summary/Data Hospital Course: Ms. Oreilly is an 86-year-old woman developed symptoms of right-sided abdominal pain on the morning of admission. Pain was associated with symptoms of nausea, but no vomiting. She was seen and evaluated in the emergency department, white blood cell count was within normal range, she was afebrile and hemodynamically stable. CT scan of the abdomen and pelvis was obtained and showed significant stool through the length of the colon but no other significant abnormalities. She is status post previous partial colectomy done for rectal carcinoma with an underlying colostomy. She was admitted to the hospital on observation status and given IV fluids for hydration. She was given a dose of MiraLAX after admission which resulted in a large bowel movement in significant improvement in her right abdominal pain. Previously she been unable to move because of significant pain, after she passed a large amount of stool pain had not totally resolved but had improved significantly to the point where she was able to transfer independently and walk independently. On evaluation she was also found to have evidence of urinary tract infection, urine culture is pending. She was treated with IV Rocephin during the hospital stay and will be discharged home on oral antibiotics. Activity will be as tolerated and she will resume her usual diet. Followup appointment will be scheduled with her primary care physician Dr. Trujillo within one week. - Patient Instructions Diet: Usual Diet as Tolerated Activity: As Tolerated Other/Special Instructions: Schedule followup appointment with Dr. Trujillo within one week. - Discharge Plan Home Medications: Home Meds Docusate Sodium [Colace] 200 mg PO BID PRN 04/14/13 [History] Dorzolamide HCl [Trusopt] 1 drop EYEBOTH BID 04/14/13 [History] Folic Acid/Vitamin B Comp W-C [Nephrocaps Softgel] 1 mg PO DAILY 04/14/13 [ History] Levothyroxine [Synthroid] 75 mcg PO ACBRK 04/14/13 [History] Multivitamin [Multi-Vitamin Daily] 1 each PO DAILY 04/14/13 [History] Niacin [Niaspan] 500 mg PO BID 04/14/13 [History] Potassium Chloride [Klor-Con M20] 20 meq PO DAILY 04/14/13 [History] Simvastatin [Zocor] 20 mg PO BEDTIME 04/14/13 [History] predniSONE [Prednisone] 5 mg PO DAILY 04/14/13 [History] Folic Acid 1 mg PO DAILY 01/18/14 [History] Cholecalciferol (Vitamin D3) [Vitamin D3] 1,000 unit PO DAILY 04/15/14 [History] Furosemide [Lasix] 40 mg PO BID 06/03/14 [History] Calcium Carbonate/Vitamin D3 [Calcium 600 + Vit D 400 Softgl] 1 cap PO BID 03/29 [History] Ferrous Sulfate 325 mg PO DAILY 03/29/15 [History] Omeprazole 20 mg PO QAM 03/29/15 [History] Warfarin [Coumadin] 1.5 mg PO MOWETHFRSA 10/30/15 [History] Warfarin [Coumadin] 2.5 mg PO ASDIRECTED 10/30/15 [History] Diltiazem HCl [Diltiazem 24Hr Cd] 300 mg PO BEDTIME #90 cap.er.24h 06/07/16 [Rx] Metoprolol Succinate [Toprol XL] 50 mg PO DAILY #90 tab.er 06/07/16 [Rx] Digoxin 1 tab PO Q48H 08/13/16 [History] Referrals: Cooper Trujillo MD [Primary Care Provider] - - Patient Data Vitals - Most Recent: Last Vital Signs Temp 99.1 F 09/08/16 10:00 Pulse 93 09/08/16 10:00 Resp 18 09/08/16 07:51 BP 163/72 H 09/08/16 10:00 Pulse Ox 97 09/08/16 07:51 Weight - Most Recent: 125 lb 7.088 oz I&O - Last 24 hours: Intake & Output 09/07/16 09/08/16 09/08/16 22:59 06:59 14:59 Intake Total 500 600 240 Output Total 300 2050 200 Balance 200 -1450 40 Lab Results - Last 24 hrs: Laboratory Results - last 24 hr 09/08/16 09/08/16 09/08/16 Range/Units 05:53 05:53 05:53 WBC 6.3 (4.5-11.0) K/uL RBC 4.50 (3.30-5.50) M/uL Hgb 13.4 (12.0-15.0) g/dL Hct 41.8 (36.0-48.0) % MCV 93 (80-98) fL MCH 30 (27-31) pg MCHC 32 (32-36) % Plt Count 256 (150-400) K/uL Neut % (Auto) 68 H (36-66) % Lymph % (Auto) 23 L (24-44) % [place] % (Auto) 6 (2-6) % Eos % (Auto) 2 (2-4) % Baso % (Auto) 0 (0-1) % PT 29.1 H (9.5-12.0) sec INR 2.66 H (0.80-1.20) Sodium 145 (140-148) mmol/L Potassium 4.2 (3.6-5.2) mmol/L Chloride 110 H (100-108) mmol/L Carbon Dioxide 26 (21-32) mmol/L Anion Gap 13.2 (5.0-14.0) mmol/L BUN 21 H (7-18) mg/dL Creatinine 1.1 H (0.6-1.0) mg/dL Est Cr Clr Drug Dosing 28.21 mL/min Estimated GFR (MDRD) 47 L (>60) Glucose 90 (74-106) mg/dL Calcium 8.0 L (8.5-10.1) mg/dL Med Orders - Current: Current Medications Acetaminophen (Tylenol) 650 mg PO Q4H PRN PRN Reason: Pain (Mild 1-3)/fever Digoxin (Lanoxin) 125 mcg PO Q48H [facility] Diltiazem HCl 180 mg/ (Diltiazem HCl 120 mg) 300 mg PO BEDTIME [facility] Docusate Sodium (Colace) 200 mg PO BID PRN PRN Reason: Constipation Dorzolamide HCl (Trusopt 2% Ophth Soln) 0 ml EYEBOTH BID [facility] Last Admin: 09/08/16 08:35 Dose: Not Given Furosemide (Lasix) 40 mg PO BIDDIURETIC [facility] Hydromorphone HCl (Dilaudid) 0.25 mg IVPUSH Q2H PRN PRN Reason: Pain Sodium Chloride (Normal Saline) 1,000 mls @ 75 mls/hr IV ASDIRECTED [facility] Levothyroxine Sodium (Levothyroxine) 75 mcg PO ACBRK [facility] Last Admin: 09/08/16 08:33 Dose: 75 mcg Magnesium Hydroxide (Milk Of Magnesia) 30 ml PO Q12H PRN PRN Reason: Constipation Metoprolol Succinate (Toprol Xl) 50 mg PO DAILY [facility] Last Admin: 09/08/16 08:34 Dose: 50 mg Ondansetron HCl (Zofran) 4 mg IV Q4H PRN PRN Reason: Nausea/Vomiting Oxycodone HCl (Oxycodone) 5 mg PO Q4H PRN PRN Reason: Pain (moderate 4-6) Pantoprazole Sodium (Protonix) 40 mg PO ACBREAKFAST [facility] Last Admin: 09/08/16 08:32 Dose: 40 mg Potassium Chloride (Klor-Con M20) 20 meq PO DAILY [facility] Last Admin: 09/08/16 08:33 Dose: 20 meq Prednisone (Prednisone) 5 mg PO DAILY [facility] Last Admin: 09/08/16 08:34 Dose: 5 mg Simvastatin (Zocor) 20 mg PO BEDTIME [facility] Last Admin: 09/07/16 22:05 Dose: 20 mg Sodium Chloride (Saline Flush) 10 ml FLUSH ASDIRECTED PRN PRN Reason: Keep Vein Open Discontinued Medications Diltiazem HCl (Cardizem Cd) 180 mg PO BEDTIME [facility] Last Admin: 09/07/16 22:13 Dose: 180 mg Diltiazem HCl (Cardizem Cd) 120 mg PO BEDTIME [facility] Last Admin: 09/07/16 22:13 Dose: 120 mg Diltiazem HCl (Cardizem Cd) Confirm Administered Dose 120 mg .ROUTE .STK-MED ONE Stop: 09/07/16 22:13 Last Admin: 09/08/16 01:08 Dose: Not Given Diltiazem HCl (Cardizem Cd) Confirm Administered Dose 180 mg .ROUTE .STK-MED ONE Stop: 09/07/16 22:13 Last Admin: 09/08/16 01:08 Dose: Not Given Furosemide (Lasix) 40 mg PO BIDDIURETIC [facility] Last Admin: 09/08/16 08:38 Dose: 40 mg Sodium Chloride (Normal Saline) 1,000 mls @ 150 mls/hr IV ASDIRECTED [facility] Last Admin: 09/07/16 17:24 Dose: 150 mls/hr Ceftriaxone Sodium 1 gm/ (Sodium Chloride) 50 mls @ 100 mls/hr IV Q24H [facility] Last Admin: 09/07/16 19:28 Dose: 100 mls/hr Ceftriaxone Sodium 1 gm/ (Sodium Chloride) 50 mls @ 100 mls/hr IV ONETIME ONE Stop: 09/08/16 10:59 Last Admin: 09/08/16 10:50 Dose: 100 mls/hr Levothyroxine Sodium (Synthroid) 75 mcg PO ACBRK [facility] Non-Formulary Medication (Diltiazem Hcl [Diltiazem 24hr Cd]) 300 mg PO BEDTIME [facility] Last Admin: 09/08/16 02:09 Dose: Not Given Polyethylene Glycol (Miralax) 51 gm PO ONETIME ONE Stop: 09/07/16 20:38 Last Admin: 09/07/16 22:06 Dose: 51 gm *Q Meaningful Use (DIS) - VTE *Q VTE Criteria *Q: VTE Pharmacological Contraindications *Q: High INR Value - Stroke *Q Stroke Criteria *Q: - AMI *Q AMI Criteria *Q:
[2016-09-08] MEDS ORDERED: Furosemide 40 MG Tab PO SCH (14:00)
[2016-09-08] MEDS ORDERED: Diltiazem 180 MG Cap.CD PO SCH (21:00)
[2016-09-08] MEDS ORDERED: DILTIAZEM PO SCH ×2 (21:00)
[2016-09-08] MEDS ORDERED: Diltiazem 120 MG Cap.CD PO SCH (21:00)
[2016-09-09] MEDS ORDERED: Digoxin 125 MCG Tab PO SCH (09:00)
== END 2016-09-08 14:37 | disposition home or self-care (01) ==
LOC: JP.ED 16:15 → JP.MS 19:30
PROVIDERS: ADMIT Hospitalist; ATTEND Hospitalist
DX: N39.0 Urinary tract infection, site not specified (principal); N18.3 Chronic kidney disease, stage 3 (moderate); M06.9 Rheumatoid arthritis, unspecified; E03.9 Hypothyroidism, unspecified; K21.9 Gastro-esophageal reflux disease without esophagitis; Z79.899 Other long term (current) drug therapy; Z79.01 Long term (current) use of anticoagulants; Z88.8 Allergy status to other drugs, medicaments and biological substances; Z98.890 Other specified postprocedural states; Z90.710 Acquired absence of both cervix and uterus; Z93.3 Colostomy status; Z96.659 Presence of unspecified artificial knee joint
CPT/HCPCS: 36415; 74176; 80048; 80053; 80162; 81001; 82150; 83690; 84443; 85025; 85610; 86140; 87086; 96361; 96365; 96375; 99284; 99285; A9270; G0378; J0696; J7040; J7050; 99234

== ENCOUNTER 2016-09-20 10:48 | Emergency (ER) | payer MEDICARE, BC ==
[2016-09-20 11:13] VITALS: BP 164/103
--- NOTE | 2016-09-20 11:47 | EDM.PDOC ---
ED HPI RENAL/ - General Chief Complaint: Genitourinary Problem Stated Complaint: BLADDER INFECTION Time Seen by Provider: 09/20/16 11:42 Source: Reports: Patient, Family, Old records History Limitations: Reports: No limitations - History of Present Illness INITIAL COMMENTS - FREE TEXT/NARRATIVE: 86-year-old female presents emergency department day complaint of burning with urination and frequency she was recently hospitalized approximately one week ago with discharge for abdominal pain and suspected urinary tract infection, she completed a course of Bactrim cultures were negative. Also concern for constipation and she does have some ongoing low back pain x-rays were shown for no compression fracture, does admit to fevers - Related Data Allergies/ADRs: Allergies Allergy/AdvReac Type Severity Reaction Status Date / Time celecoxib [From Celebrex] AdvReac Nausea Verified 09/20/16 11:19 leflunomide [From Arava] AdvReac Diarrhea Verified 09/20/16 11:19 venlafaxine HCl AdvReac Nausea Verified 09/20/16 11:19 [From Effexor] Home Meds: Home Meds Docusate Sodium [Colace] 200 mg PO BID PRN 04/14/13 [History] Dorzolamide HCl [Trusopt] 1 drop EYEBOTH BID 04/14/13 [History] Folic Acid/Vitamin B Comp W-C [Nephrocaps Softgel] 1 mg PO DAILY 04/14/13 [ History] Levothyroxine [Synthroid] 75 mcg PO ACBRK 04/14/13 [History] Multivitamin [Multi-Vitamin Daily] 1 each PO DAILY 04/14/13 [History] Niacin [Niaspan] 500 mg PO BID 04/14/13 [History] Potassium Chloride [Klor-Con M20] 20 meq PO DAILY 04/14/13 [History] Simvastatin [Zocor] 20 mg PO BEDTIME 04/14/13 [History] predniSONE [Prednisone] 5 mg PO DAILY 04/14/13 [History] Folic Acid 1 mg PO DAILY 01/18/14 [History] Cholecalciferol (Vitamin D3) [Vitamin D3] 1,000 unit PO DAILY 04/15/14 [History] Furosemide [Lasix] 40 mg PO BID 06/03/14 [History] Calcium Carbonate/Vitamin D3 [Calcium 600 + Vit D 400 Softgl] 1 cap PO BID 03/29 [History] Ferrous Sulfate 325 mg PO DAILY 03/29/15 [History] Omeprazole 20 mg PO QAM 03/29/15 [History] Warfarin [Coumadin] 1.5 mg PO MOWETHFRSA 10/30/15 [History] Warfarin [Coumadin] 2.5 mg PO ASDIRECTED 10/30/15 [History] Diltiazem HCl [Diltiazem 24Hr Cd] 300 mg PO BEDTIME #90 cap.er.24h 06/07/16 [Rx] Metoprolol Succinate [Toprol XL] 50 mg PO DAILY #90 tab.er 06/07/16 [Rx] Digoxin 1 tab PO Q48H 08/13/16 [History] Sulfamethoxazole/Trimethoprim [Septra DS] 1 each PO BID #14 tab 09/08/16 [Rx] Past Medical History HEENT History: Reports: Cataract, Glaucoma, Hard of hearing, Impaired vision Cardiovascular History: Reports: Afib, Arrhythmia, Blood clots/VTE/DVT, Heart murmur, High cholesterol, Hypertension, Pacemaker Respiratory History: Reports: Pneumonia, recurrent Gastrointestinal History: Reports: Chronic constipation, GERD Genitourinary History: Reports: Renal disease, UTI, recurrent [employer] History: Reports: Musculoskeletal History: Reports: Amputation, Arthritis, Fracture Psychiatric History: Reports: Anxiety Endocrine/Metabolic History: Reports: Hypothyroidism Hematologic History: Reports: Blood transfusion(s) Oncologic (Cancer) History: Reports: Basal cell carcinoma Dermatologic History: Reports: None - Infectious Disease History Infectious Disease History: Reports: Chicken pox, Measles - Past Surgical History HEENT Surgical History: Reports: Cataract surgery, Other (see below) Other HEENT Surgeries/Procedures: dysphagia Cardiovascular Surgical History: Reports: None, Pacer Respiratory Surgical History: Reports: Lung Resection GI Surgical History: Reports: Colonoscopy, Colostomy, Rea fundoplication, Small bowel Female Surgical History: Reports: Hysterectomy Endocrine Surgical History: Reports: None Musculoskeletal Surgical History: Reports: Amputation, Carpal tunnel, Knee replacement Dermatological Surgical History: Reports: Skin biopsy Social & Family History - Family History Family Medical History: Noncontributory - Tobacco Use Smoking Status *Q: Never Smoker Second Hand Smoke Exposure: No - Caffeine Use Caffeine Use: Reports: None Other Caffeine Use: rarely - Alcohol Use Days Per Week of Alcohol Use: 0 Number of Drinks Per Day: 0 Total Drinks Per Week: 0 - Recreational Drug Use Recreational Drug Use: No - Living Situation & Occupation Living situation: Reports: , with spouse Occupation: retired ED ROS GENERAL - Review of Systems Review Of Systems: See Below Constitutional: Reports: fever. Denies: chills HEENT: Reports: No symptoms Respiratory: Reports: No Symptoms Cardiovascular: Reports: No symptoms GI/Abdominal: Denies: Abdominal pain, Nausea, Vomiting : Reports: dysuria, flank pain, frequency Musculoskeletal: Reports: no symptoms Skin: Reports: no symptoms ED EXAM, RENAL/ - Physical Exam Exam: See Below Text/Narrative:: General: Elderly female, not in any distress, alert HEENT: head is atraumatic normocephalic, eyes pupils equal round reactive to light, sclera clear no conjunctivitis appreciated. Ears hearing aid in place on the left side. Nose no septal deviation, nares are clear, no blood present. Mouth mucosa is moist and pink no erythema or exudate noted in soft palate, tongue is midline uvula is midline, dentition is in place. Neck: Supple no thyromegaly no tracheal deviation. Nodes: Cervical nodes subclavicular nodes nontender no palpable lymphadenopathy noted. Lungs: clear to auscultation bilaterally with symmetrical respirations, no adventitious noise appreciated. CV: Irregularly irregular rate and rhythm S1 and S2 appreciated no murmurs rubs or gallops noted. Abdomen: Soft, tenderness along the right flank, no palpable masses or organomegaly appreciated, no distention no guarding bowel sounds are present, colostomy bag in place open and functioning. Neuro: Cranial nerves II through XII grossly intact Skin: Warm and dry, intact Extremities: No lower extremity edema appreciated, Course - Vital Signs Last Recorded V/S: Last Vital Signs Temp 98.7 F 09/20/16 11:17 Pulse 95 09/20/16 11:17 Resp 14 09/20/16 11:17 BP 164/103 H 09/20/16 11:17 Pulse Ox 96 09/20/16 11:17 - Orders/Labs/Meds Orders: Active Orders 24 hr Category Date Time Status CULTURE URINE [RM] Urgent Lab 09/20/16 11:48 Uncollected Labs: Laboratory Tests 09/20/16 09/20/16 09/20/16 Range/Units 11:19 11:48 11:48 WBC 7.6 (4.5-11.0) K/uL RBC 4.31 (3.30-5.50) M/uL Hgb 12.8 (12.0-15.0) g/dL Hct 40.4 (36.0-48.0) % MCV 94 (80-98) fL MCH 30 (27-31) pg MCHC 32 (32-36) % Plt Count 244 (150-400) K/uL Neut % (Auto) 79 H (36-66) % Lymph % (Auto) 14 L (24-44) % [place] % (Auto) 6 (2-6) % Eos % (Auto) 1 L (2-4) % Baso % (Auto) 0 (0-1) % PT 11.9 (9.5-12.0) sec INR 1.12 (0.80-1.20) Sodium (140-148) mmol/L Potassium (3.6-5.2) mmol/L Chloride (100-108) mmol/L Carbon Dioxide (21-32) mmol/L Anion Gap (5.0-14.0) mmol/L BUN (7-18) mg/dL Creatinine (0.6-1.0) mg/dL Est Cr Clr Drug Dosing mL/min Estimated GFR (MDRD) (>60) Glucose (74-106) mg/dL Lactic Acid (0.4-2.0) mmol/L Calcium (8.5-10.1) mg/dL Total Bilirubin (0.2-1.0) mg/dL AST (15-37) U/L ALT (12-78) U/L Alkaline Phosphatase (46-116) U/L Total Protein (6.4-8.2) g/dL Albumin (3.4-5.0) g/dL Globulin (2.3-3.5) g/dL Albumin/Globulin Ratio (1.2-2.2) Urine Color Yellow Urine Appearance Turbid Urine pH 5.0 (4.5-8.0) Ur Specific [place] 1.015 (1.008-1.030) Urine Protein 30 H (NEGATIVE) mg/dL Urine Glucose (UA) Normal (NEGATIVE) mg/dL Urine Ketones Negative (NEGATIVE) mg/dL Urine Occult Blood Large (NEGATIVE) Urine Nitrite Negative (NEGATIVE) Urine Bilirubin Negative (NEGATIVE) Urine Urobilinogen Normal (NORMAL) mg/dL Ur Leukocyte Esterase Large (NEGATIVE) Urine RBC 10-20 H (0-5) Urine WBC >100 H (0-5) Ur Epithelial Cells Few Amorphous Sediment Not seen Urine Bacteria Few Urine Mucus Not seen 09/20/16 09/20/16 Range/Units 11:48 11:48 WBC (4.5-11.0) K/uL RBC (3.30-5.50) M/uL Hgb (12.0-15.0) g/dL Hct (36.0-48.0) % MCV (80-98) fL MCH (27-31) pg MCHC (32-36) % Plt Count (150-400) K/uL Neut % (Auto) (36-66) % Lymph % (Auto) (24-44) % [place] % (Auto) (2-6) % Eos % (Auto) (2-4) % Baso % (Auto) (0-1) % PT (9.5-12.0) sec INR (0.80-1.20) Sodium 140 (140-148) mmol/L Potassium 4.9 (3.6-5.2) mmol/L Chloride 107 (100-108) mmol/L Carbon Dioxide 25 (21-32) mmol/L Anion Gap 7.6 (5.0-14.0) mmol/L BUN 32 H D (7-18) mg/dL Creatinine 1.4 H (0.6-1.0) mg/dL Est Cr Clr Drug Dosing 22.19 mL/min Estimated GFR (MDRD) 36 L (>60) Glucose 93 (74-106) mg/dL Lactic Acid 1.0 (0.4-2.0) mmol/L Calcium 8.6 (8.5-10.1) mg/dL Total Bilirubin 0.3 (0.2-1.0) mg/dL AST 15 (15-37) U/L ALT 21 (12-78) U/L Alkaline Phosphatase 58 (46-116) U/L Total Protein 7.6 (6.4-8.2) g/dL Albumin 2.8 L (3.4-5.0) g/dL Globulin 4.8 H (2.3-3.5) g/dL Albumin/Globulin Ratio 0.6 L (1.2-2.2) Urine Color Urine Appearance Urine pH (4.5-8.0) Ur Specific [place] (1.008-1.030) Urine Protein (NEGATIVE) mg/dL Urine Glucose (UA) (NEGATIVE) mg/dL Urine Ketones (NEGATIVE) mg/dL Urine Occult Blood (NEGATIVE) Urine Nitrite (NEGATIVE) Urine Bilirubin (NEGATIVE) Urine Urobilinogen (NORMAL) mg/dL Ur Leukocyte Esterase (NEGATIVE) Urine RBC (0-5) Urine WBC (0-5) Ur Epithelial Cells Amorphous Sediment Urine Bacteria Urine Mucus Departure - Departure Time of Disposition: 13:31 Disposition: Home, Self-Care 01 Condition: good Clinical Impression: UTI (urinary tract infection) Qualifiers: Urinary tract infection type: acute cystitis Hematuria presence: with hematuria Qualified Code(s): N30.01 - Acute cystitis with hematuria Forms: ED Department Discharge Additional Instructions: Take full course of antibiotics, Please followup with your primary care provider in 3-5 days if not better, please call return to the emergency department with worsening of symptoms. - My Orders Last 24 Hours: My Active Orders 09/20/16 11:48 CULTURE URINE [RM] Urgent - Assessment/Plan Last 24 Hours: My Active Orders 09/20/16 11:48 CULTURE URINE [RM] Urgent Plan: Assessment Acuity = acute Urinary tract infection Etiology = suspicious for bacterial cause Manifestations = dysuria, right flank pain Location of injury = home Lab values = WBC within normal limits, INR low at 1.12 creatinine elevated 1.4 consistent with chronic renal failure stage GIV albumin low at 2.8 consistent hypoalbuminemia urinalysis reveals 10-20 rbc's consistent hematuria greater than 100 WBCs consistent with pyuria, cultures pending Plan Treat with ciprofloxacin 500 by mouth twice a day x10 days suspicious for kidney involvement, she has had multiple CT scans within the last month and also discontinue the course of Bactrim with hospitalization within the last Patient was in agreement with the plan all questions were answered, they were instructed to return to the emergency department or call for worsening symptoms. This note was dictated using [employer] voice recognition software please call with any questions.
--- NOTE | 2016-09-20 12:53 | CR ---
Abdomen 1V Flat HISTORY: pain RLQ FINDINGS: Bowel gas pattern is nonspecific. No obstruction or free air is identified. No soft tissue mass, org anomegaly, or abnormal calcifications are seen. There is scattered atherosclerotic vascular calcific ation. Abdominal aorta does not appear dilated. Ostomy is noted left mid abdomen. There are prominen t degenerative and hypertrophic changes along the lumbar spine with moderate rotoscoliosis convex to the left. IMPRESSION: Ostomies noted left mid abdomen. Scattered atherosclerotic vascular calcification. Prominent degener ative and hypertrophic changes lumbar spine with rotoscoliosis convex to the left. No acute abnormal ity is identified.
== END 2016-09-20 14:26 | disposition home or self-care (01) ==
LOC: JP.ED 10:48
DX: N30.01 Acute cystitis with hematuria (principal); I48.91 Unspecified atrial fibrillation; K21.9 Gastro-esophageal reflux disease without esophagitis; E03.9 Hypothyroidism, unspecified; Z98.49 Cataract extraction status, unspecified eye; Z96.659 Presence of unspecified artificial knee joint; Z90.710 Acquired absence of both cervix and uterus; Z98.890 Other specified postprocedural states; Z86.718 Personal history of other venous thrombosis and embolism; Z79.01 Long term (current) use of anticoagulants; Z79.899 Other long term (current) drug therapy; Z88.8 Allergy status to other drugs, medicaments and biological substances
CPT/HCPCS: 36415; 74000; 74000-26; 80053; 81001; 83605; 85025; 85610; 87086; 99283; 99284

== ENCOUNTER 2016-11-18 07:24 | Inpatient (IN) | payer MEDICARE, BC ==
[2016-11-18] MEDS ORDERED: Sodium Chloride 0.9% 1,000 ML IV SCH ×2 (07:45→09:15)
--- NOTE | 2016-11-18 08:19 | EDM.PDOC ---
[id number] [address] [place] [address] [facility] Time Seen by Provider: 11/18/16 08:16 Source of Information: Reports: Patient, EMS Notes Reviewed History Limitations: Reports: No Limitations - History of Present Illness INITIAL COMMENTS - FREE TEXT/NARRATIVE: pt had problems with her colostomy yestwrday. She had a period that it was not producing any stool. Now this broke loose and huge volumes of liquid stool is coming. The colostomy bag broke and she was covered with stool and she had vomited a number of times and was covered with vomit. Duration: Hour(s): Location: Reports: Abdomen Associated Symptoms: Reports: Confusion, Nausea/Vomiting, Other ( large volumes of liquid stool. ) Abdominal Pain Score (Numeric/FACES): 7 - Related Data Allergies Allergy/AdvReac Type Severity Reaction Status Date / Time celecoxib [From Celebrex] AdvReac Nausea Verified 11/18/16 08:05 leflunomide [From Arava] AdvReac Diarrhea Verified 11/18/16 08:05 venlafaxine HCl AdvReac Nausea Verified 11/18/16 08:05 [From Effexor] Home Meds: Home Meds Docusate Sodium [Colace] 200 mg PO BID PRN 04/14/13 [History] Dorzolamide HCl [Trusopt] 1 drop EYEBOTH BID 04/14/13 [History] Folic Acid/Vitamin B Comp W-C [Nephrocaps Softgel] 1 mg PO DAILY 04/14/13 [ History] Levothyroxine [Synthroid] 75 mcg PO ACBRK 04/14/13 [History] Multivitamin [Multi-Vitamin Daily] 1 each PO DAILY 04/14/13 [History] Niacin [Niaspan] 500 mg PO BID 04/14/13 [History] Potassium Chloride [Klor-Con M20] 20 meq PO DAILY 04/14/13 [History] Simvastatin [Zocor] 20 mg PO BEDTIME 04/14/13 [History] predniSONE [Prednisone] 5 mg PO DAILY 04/14/13 [History] Folic Acid 1 mg PO DAILY 01/18/14 [History] Cholecalciferol (Vitamin D3) [Vitamin D3] 1,000 unit PO DAILY 04/15/14 [History] Furosemide [Lasix] 40 mg PO BID 06/03/14 [History] Calcium Carbonate/Vitamin D3 [Calcium 600 + Vit D 400 Softgl] 1 cap PO BID 03/29 [History] Ferrous Sulfate 325 mg PO DAILY 03/29/15 [History] Omeprazole 40 mg PO QAM 03/29/15 [History] Diltiazem HCl [Diltiazem 24Hr Cd] 300 mg PO BEDTIME #90 cap.er.24h 06/07/16 [Rx] Metoprolol Succinate [Toprol XL] 50 mg PO DAILY #90 tab.er 06/07/16 [Rx] Digoxin 1 tab PO Q48H 08/13/16 [History] Tolterodine Tartrate 1 mg PO BID 11/18/16 [History] tiZANidine [Zanaflex] 1 tab PO Q8H PRN 11/18/16 [History] Acetaminophen/HYDROcodone [Kiel 325-10 MG] 1 tab PO Q6H PRN #90 tablet [Rx] Warfarin [Coumadin] 1.5 mg PO MOWETHFRSA #30 11/20/16 [Rx] Warfarin [Coumadin] 2.5 mg PO ASDIRECTED #0 11/20/16 [Rx] methylPREDNISolone [Medrol] 4 mg PO ASDIRECTED #8 tablet 11/20/16 [Rx] Past Medical History HEENT History: Reports: Cataract, Glaucoma, Hard of Hearing, Impaired Vision Cardiovascular History: Reports: Afib, Arrhythmia, Blood Clots/VTE/DVT, Heart Murmur, High Cholesterol, Hypertension, Pacemaker Respiratory History: Reports: Pneumonia, Recurrent Gastrointestinal History: Reports: Chronic Constipation, GERD Genitourinary History: Reports: Renal Disease, UTI, Recurrent PULLER THROUGH History: Reports: Musculoskeletal History: Reports: Amputation, Arthritis, Fracture Psychiatric History: Reports: Anxiety Endocrine/Metabolic History: Reports: Hypothyroidism Hematologic History: Reports: Blood Transfusion(s) Oncologic (Cancer) History: Reports: Basal Cell Carcinoma Dermatologic History: Reports: None - Infectious Disease History Infectious Disease History: Reports: Chicken Pox, Measles - Past Surgical History HEENT Surgical History: Reports: Cataract Surgery GI Surgical History: Reports: Colonoscopy, Colostomy, Rae Fundoplication, Small Bowel Endocrine Surgical History: Reports: None Musculoskeletal Surgical History: Reports: Amputation, Carpal Tunnel, Knee Replacement Dermatological Surgical History: Reports: Skin Biopsy Social & Family History - Family History Family Medical History: Noncontributory - Tobacco Use Smoking Status *Q: Unknown Ever Smoked Second Hand Smoke Exposure: No - Caffeine Use Caffeine Use: Reports: None Other Caffeine Use: rarely - Alcohol Use Days Per Week of Alcohol Use: 0 Number of Drinks Per Day: 0 Total Drinks Per Week: 0 - Recreational Drug Use Recreational Drug Use: No - Living Situation & Occupation Living situation: Reports: , with Spouse Occupation: Retired ED ROS GENERAL - Review of Systems Review Of Systems: See Below Constitutional: Reports: Other (low grade temp at 99. ) HEENT: Reports: No Symptoms Respiratory: Reports: No Symptoms Cardiovascular: Reports: No Symptoms Endocrine: Reports: No Symptoms GI/Abdominal: Reports: Abdominal Pain, Constipation, Other (pt did not have results in colostomy and then it broke loose and she is pouring out liquid stool. ) : Reports: No Symptoms, Other (on antibiotic for UTI. ) Musculoskeletal: Reports: No Symptoms Skin: Reports: No Symptoms ED EXAM, GENERAL - Physical Exam Exam: See Below Free Text/Narrative:: pt arrived with a history of vomiting and pouring out liquid stool She did not have stool in the colostomy bag for 2 days and then it broke loose. Exam Limited By: Other (pt is difficult to get a history. She is quite hard of hearing.) General Appearance: Alert, Anxious, Mild Distress Ears: Normal TMs Nose: Normal Inspection Throat/Mouth: Normal Inspection Head: Atraumatic Neck: Normal Inspection Respiratory/Chest: No Respiratory Distress Cardiovascular: Irregularly Irregular GI/Abdominal: Soft, Non-Tender, Other (colostomy is pouring out a large amount of liquid stool. ) (Female) Exam: Deferred Rectal (Female) Exam: Deferred Back Exam: Normal Inspection Extremities: Other (pt has alot of statis changes an her legs, no edema. ) Neurological: Alert, Oriented, Other ( very difficult to get a history from the pt. ) Psychiatric: Anxious Course - Vital Signs Last Recorded V/S: Last Vital Signs Temp 36.1 C 11/20/16 11:09 Pulse 85 11/20/16 11:09 Resp 16 11/20/16 11:09 BP 148/76 H 11/20/16 11:09 Pulse Ox 97 11/20/16 11:09 - Orders/Labs/Meds Labs: Laboratory Tests 11/18/16 11/18/16 11/18/16 Range/Units 07:45 07:45 07:45 WBC 9.4 (4.5-11.0) K/uL RBC 4.38 (3.30-5.50) M/uL Hgb 13.4 (12.0-15.0) g/dL Hct 41.7 (36.0-48.0) % MCV 95 (80-98) fL MCH 31 (27-31) pg MCHC 32 (32-36) % Plt Count 349 (150-400) K/uL Neut % (Auto) 80 H (36-66) % Lymph % (Auto) 11 L (24-44) % Mcdowell % (Auto) 7 H (2-6) % Eos % (Auto) 2 (2-4) % Baso % (Auto) 0 (0-1) % PT (9.5-12.0) sec INR (0.80-1.20) Sodium 140 (140-148) mmol/L Potassium 4.5 (3.6-5.2) mmol/L Chloride 104 (100-108) mmol/L Carbon Dioxide 24 (21-32) mmol/L Anion Gap 12.2 (5.0-14.0) mmol/L BUN 24 H (7-18) mg/dL Creatinine 1.5 H (0.6-1.0) mg/dL Est Cr Clr Drug Dosing TNP Estimated GFR (MDRD) 33 L (>60) Glucose 107 H (74-106) mg/dL Calcium 8.8 (8.5-10.1) mg/dL Total Bilirubin 0.2 (0.2-1.0) mg/dL AST 20 (15-37) U/L ALT 14 (12-78) U/L Alkaline Phosphatase 68 (46-116) U/L Creatine Kinase 58 (26-192) U/L Troponin I < 0.017 (0.000-0.056) ng/mL Total Protein 8.1 (6.4-8.2) g/dL Albumin 2.6 L (3.4-5.0) g/dL Globulin 5.5 H (2.3-3.5) g/dL Albumin/Globulin Ratio 0.5 L (1.2-2.2) Urine Color Urine Appearance Urine pH (4.5-8.0) Ur Specific Kingsley (1.008-1.030) Urine Protein (NEGATIVE) mg/dL Urine Glucose (UA) (NEGATIVE) mg/dL Urine Ketones (NEGATIVE) mg/dL Urine Occult Blood (NEGATIVE) Urine Nitrite (NEGATIVE) Urine Bilirubin (NEGATIVE) Urine Urobilinogen (NORMAL) mg/dL Ur Leukocyte Esterase (NEGATIVE) Urine RBC (0-5) Urine WBC (0-5) Ur Epithelial Cells Amorphous Sediment Urine Bacteria Urine Mucus 11/18/16 11/18/16 Range/Units 08:58 09:05 WBC (4.5-11.0) K/uL RBC (3.30-5.50) M/uL Hgb (12.0-15.0) g/dL Hct (36.0-48.0) % MCV (80-98) fL MCH (27-31) pg MCHC (32-36) % Plt Count (150-400) K/uL Neut % (Auto) (36-66) % Lymph % (Auto) (24-44) % Mcdowell % (Auto) (2-6) % Eos % (Auto) (2-4) % Baso % (Auto) (0-1) % PT 56.9 H (9.5-12.0) sec INR 5.10 H* D (0.80-1.20) Sodium (140-148) mmol/L Potassium (3.6-5.2) mmol/L Chloride (100-108) mmol/L Carbon Dioxide (21-32) mmol/L Anion Gap (5.0-14.0) mmol/L BUN (7-18) mg/dL Creatinine (0.6-1.0) mg/dL Est Cr Clr Drug Dosing Estimated GFR (MDRD) (>60) Glucose (74-106) mg/dL Calcium (8.5-10.1) mg/dL Total Bilirubin (0.2-1.0) mg/dL AST (15-37) U/L ALT (12-78) U/L Alkaline Phosphatase (46-116) U/L Creatine Kinase (26-192) U/L Troponin I (0.000-0.056) ng/mL Total Protein (6.4-8.2) g/dL Albumin (3.4-5.0) g/dL Globulin (2.3-3.5) g/dL Albumin/Globulin Ratio (1.2-2.2) Urine Color Yellow Urine Appearance Cloudy Urine pH 6.0 (4.5-8.0) Ur Specific Kingsley 1.020 (1.008-1.030) Urine Protein Trace (NEGATIVE) mg/dL Urine Glucose (UA) Normal (NEGATIVE) mg/dL Urine Ketones Negative (NEGATIVE) mg/dL Urine Occult Blood Large (NEGATIVE) Urine Nitrite Negative (NEGATIVE) Urine Bilirubin Negative (NEGATIVE) Urine Urobilinogen Normal (NORMAL) mg/dL Ur Leukocyte Esterase Large (NEGATIVE) Urine RBC 30-40 H (0-5) Urine WBC Packed H (0-5) Ur Epithelial Cells Few Amorphous Sediment Not seen Urine Bacteria Many Urine Mucus Not seen Meds: Medications Discontinued Medications Generic Name Dose Route Start Last Admin Trade Name Freq PRN Reason Stop Dose Admin Acetaminophen 650 mg 11/18/16 10:58 11/18/16 16:41 Tylenol PO 650 mg Q4H PRN Administration Pain (Mild 1-3)/fever Hydrocodone Bitart/Acetaminophen 1 tab 11/18/16 10:58 Kiel 325-10 Mg PO Q6H PRN Pain Digoxin 125 mcg 11/19/16 13:00 11/19/16 13:27 Lanoxin PO 125 mcg Q48H ALICIA Administration Diltiazem HCl 180 mg/ 300 mg 11/18/16 21:00 11/19/16 21:20 Diltiazem HCl 120 mg PO 300 mg BEDTIME ALICIA Administration Docusate Sodium 200 mg 11/19/16 09:27 11/19/16 19:25 Colace PO 200 mg BID PRN Administration Constipation Dorzolamide HCl 0 ml 11/18/16 21:00 11/20/16 08:35 Trusopt 2% Ophth Soln EYEBOTH 1 drop BID ALICIA Administration Folic Acid 1 mg 11/19/16 09:00 11/20/16 08:34 Folic Acid PO 1 mg DAILY ALICIA Administration Sodium Chloride 1,000 mls @ 500 mls/hr 11/18/16 07:45 11/18/16 08:51 Normal Saline IV 500 mls/hr ASDIRECTED ALICIA Administration Sodium Chloride 1,000 mls @ 250 mls/hr 11/18/16 09:15 Normal Saline IV ASDIRECTED ALICIA Ceftriaxone Sodium 1 gm/ 50 mls @ 100 mls/hr 11/18/16 10:00 11/20/16 10:07 Sodium Chloride IV 100 mls/hr Q24H ALICIA Administration Sodium Chloride 1,000 mls @ 100 mls/hr 11/18/16 10:58 11/19/16 09:04 Normal Saline IV 100 mls/hr ASDIRECTED ALICIA Administration Levothyroxine Sodium 75 mcg 11/18/16 10:58 11/20/16 07:03 Levothyroxine PO 75 mcg ACBRK ALICIA Administration Methylprednisolone 1 mg 11/18/16 11:45 Medrol PO ASDIRECTED [facility] Protocol Methylprednisolone 8 mg 11/18/16 12:00 11/18/16 20:28 Medrol PO 11/18/16 21:01 8 mg TID@1200,1700,2100 ALICIA Administration Methylprednisolone 4 mg 11/19/16 08:00 11/19/16 16:48 Medrol PO 11/19/16 17:01 4 mg TIDMEALS ALICIA Administration Methylprednisolone 8 mg 11/19/16 21:00 11/19/16 21:21 Medrol PO 11/19/16 21:01 8 mg BEDTIME ALICIA Administration Methylprednisolone 4 mg 11/20/16 08:00 11/20/16 10:51 Medrol PO 11/20/16 21:01 4 mg 0800,1100,1700,2100 ALICIA Administration Methylprednisolone 4 mg 11/21/16 08:00 Medrol PO 11/21/16 21:01 TID@0800,1100,2100 ALICIA Methylprednisolone 4 mg 11/22/16 08:00 Medrol PO 11/22/16 21:01 BID@0800,2100 [facility] Methylprednisolone 4 mg 11/23/16 08:00 Medrol PO 11/23/16 08:01 WITHBREAKFAST [facility] Metoprolol Succinate 50 mg 11/18/16 10:58 11/20/16 08:32 Toprol Xl PO 50 mg DAILY ALICIA Administration Multivitamins/Minerals 1 tab 11/19/16 09:00 11/20/16 08:34 Thera M Plus PO 1 tab DAILY ALICIA Administration Niacin 500 mg 11/18/16 21:00 11/20/16 08:33 Niacin PO 500 mg BID ALICIA Administration Non-Formulary Medication 300 mg 11/18/16 21:00 Diltiazem Hcl [Diltiazem 24hr Cd] PO BEDTIME [facility] Ondansetron HCl 4 mg 11/18/16 10:58 Zofran Odt PO Q6H PRN Nausea able to take PO Ondansetron HCl 4 mg 11/18/16 10:58 Zofran IV Q6H PRN Nausea/Vomiting Pantoprazole Sodium 40 mg 11/19/16 07:30 11/20/16 07:04 Protonix PO 40 mg ACBREAKFAST ALICIA Administration Polyethylene Glycol 17 gm 11/18/16 10:58 Miralax PO DAILY PRN Constipation Potassium Chloride 20 meq 11/19/16 09:00 11/20/16 08:34 Klor-Con M20 PO 20 meq DAILY ALICIA Administration Simvastatin 20 mg 11/18/16 21:00 11/19/16 21:21 Zocor PO 20 mg BEDTIME ALICIA Administration Tolterodine Tartrate 1 mg 11/18/16 21:00 11/20/16 08:33 Detrol PO 1 mg BID ALICIA Administration Warfarin Sodium 1.5 mg 11/20/16 14:30 Coumadin PO 11/20/16 14:31 ONETIME ONE - Re-Assessments/Exams Free Text/Narrative Re-Assessment/Exam: 11/18/16 09:03 pt is having large volumes of liquid stool out the colostomy. She remains in atrial fib. P is receiving iv fluids at 500 per hour. 11/18/16 09:35 urine is persistently infected. . her inr is elevated. Departure - Departure Time of Disposition: 09:37 Disposition: Admitted As Inpatient 67 Condition: fair Clinical Impression: Colostomy complication, Dehydration, UTI (urinary tract infection) - Discharge Information
--- NOTE | 2016-11-18 08:53 | CR ---
Portable chest Comparison: 20 September 2016. Findings: There is a cardiac pacemaker on the left with 2 intact leads. The heart and vascular struc tures are stable. There are no infiltrates or effusions. Impression: 1. No acute findings.
--- NOTE | 2016-11-18 08:54 | CR ---
Supine abdomen Comparison: September 2016. There is no large or small bowel distention. There is a left lower quadrant ostomy. There is no sign ificant stool retention. 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 Impression: 1. No acute findings.
--- NOTE | 2016-11-18 09:51 | PCM.HP ---
H&P History of Present Illness - General Date of Service: 11/18/16 Admit Problem/Dx: Admission Diagnosis/Problem Admission Diagnosis/Problem Acute cystitis Source of Information: Patient, Family, Provider History Limitations: Reports: No Limitations - History of Present Illness Initial Comments - Free Text/Narative: Esther presents to the emergency room today with nausea, vomiting and abdominal pain. She reports that her colostomy has not produced any stool for the past 24 hours. She had several episodes of vomiting overnight. Vomit was brown in color. She's not aware of any fevers. She does report some mild to moderate crampy generalized abdominal pain throughout the night. She did not take anything to make it better other than her usual pain pills and they did not help. Nothing obviously makes the pain worse necessarily. Pain radiates throughout the abdomen. no complaints of urinary urgency at this time but she does report ongoing incontinence issues. Appetite has been okay other than the past 24 hours. No complaints of shortness of breath, chest pain or palpitations. workup in the emergency room revealed that the patient did pass a large hard stool in her colostomy bag and then unfortunately the colostomy bag ruptured leaking stool everywhere. She has had 2 colostomy bags full of liquid stool since the original bag ruptured. She's dehydrated and weak and will need to be admitted for hydration and additional workup and management. She also has evidence for a urinary tract infection. Abdominal Pain Score (Numeric/FACES): 7 - Related Data Allergies/Adverse Reactions: Allergies Allergy/AdvReac Type Severity Reaction Status Date / Time celecoxib [From Celebrex] AdvReac Nausea Verified 11/18/16 08:05 leflunomide [From Arava] AdvReac Diarrhea Verified 11/18/16 08:05 venlafaxine HCl AdvReac Nausea Verified 11/18/16 08:05 [From Effexor] Home Medications: Home Meds Docusate Sodium [Colace] 200 mg PO BID PRN 04/14/13 [History] Dorzolamide HCl [Trusopt] 1 drop EYEBOTH BID 04/14/13 [History] Folic Acid/Vitamin B Comp W-C [Nephrocaps Softgel] 1 mg PO DAILY 04/14/13 [ History] Levothyroxine [Synthroid] 75 mcg PO ACBRK 04/14/13 [History] Multivitamin [Multi-Vitamin Daily] 1 each PO DAILY 04/14/13 [History] Niacin [Niaspan] 500 mg PO BID 04/14/13 [History] Potassium Chloride [Klor-Con M20] 20 meq PO DAILY 04/14/13 [History] Simvastatin [Zocor] 20 mg PO BEDTIME 04/14/13 [History] predniSONE [Prednisone] 5 mg PO DAILY 04/14/13 [History] Folic Acid 1 mg PO DAILY 01/18/14 [History] Cholecalciferol (Vitamin D3) [Vitamin D3] 1,000 unit PO DAILY 04/15/14 [History] Furosemide [Lasix] 40 mg PO BID 06/03/14 [History] Calcium Carbonate/Vitamin D3 [Calcium 600 + Vit D 400 Softgl] 1 cap PO BID 03/29 [History] Ferrous Sulfate 325 mg PO DAILY 03/29/15 [History] Omeprazole 40 mg PO QAM 03/29/15 [History] Warfarin [Coumadin] 1.5 mg PO MOWETHFRSA 10/30/15 [History] Warfarin [Coumadin] 2.5 mg PO ASDIRECTED 10/30/15 [History] Diltiazem HCl [Diltiazem 24Hr Cd] 300 mg PO BEDTIME #90 cap.er.24h 06/07/16 [Rx] Metoprolol Succinate [Toprol XL] 50 mg PO DAILY #90 tab.er 06/07/16 [Rx] Digoxin 1 tab PO Q48H 08/13/16 [History] Acetaminophen/HYDROcodone [[place] 325-10 MG] 1 tab PO Q6H PRN 11/18/16 [History] Sulfamethoxazole/Trimethoprim [Bactrim Ds Tablet] 1 each PO BID 11/18/16 [ History] Tolterodine Tartrate 1 mg PO BID 11/18/16 [History] tiZANidine [Zanaflex] 1 tab PO Q8H PRN 11/18/16 [History] Past Medical History HEENT History: Reports: Cataract, Glaucoma, Hard of Hearing, Impaired Vision Cardiovascular History: Reports: Afib, Arrhythmia, Blood Clots/VTE/DVT, Heart Murmur, High Cholesterol, Hypertension, Pacemaker Respiratory History: Reports: Pneumonia, Recurrent Gastrointestinal History: Reports: Chronic Constipation, GERD Genitourinary History: Reports: Renal Disease, UTI, Recurrent AUTHORIZATION SPECIALIST History: Reports: Musculoskeletal History: Reports: Amputation, Arthritis, Fracture Psychiatric History: Reports: Anxiety Endocrine/Metabolic History: Reports: Hypothyroidism Hematologic History: Reports: Blood Transfusion(s) Oncologic (Cancer) History: Reports: Basal Cell Carcinoma Dermatologic History: Reports: None - Infectious Disease History Infectious Disease History: Reports: Chicken Pox, Measles - Past Surgical History HEENT Surgical History: Reports: Cataract Surgery GI Surgical History: Reports: Colonoscopy, Colostomy, Rae Fundoplication, Small Bowel Endocrine Surgical History: Reports: None Musculoskeletal Surgical History: Reports: Amputation, Carpal Tunnel, Knee Replacement Dermatological Surgical History: Reports: Skin Biopsy Social & Family History - Family History Family Medical History: Noncontributory - Tobacco Use Smoking Status *Q: Unknown Ever Smoked Second Hand Smoke Exposure: No - Caffeine Use Caffeine Use: Reports: None Other Caffeine Use: rarely - Alcohol Use Days Per Week of Alcohol Use: 0 Number of Drinks Per Day: 0 Total Drinks Per Week: 0 - Recreational Drug Use Recreational Drug Use: No - Living Situation & Occupation Living situation: Reports: , with Spouse Occupation: Retired H&P Review of Systems - Review of Systems: Review Of Systems: See Below Free Text/Narrative: A complete 12 point review of systems was obtained. Pertinent positives and negatives are noted in the history of present illness. All other systems were reviewed and were negative except as noted. Exam - Exam Exam: See Below - Vital Signs Vital Signs: Last Vital Signs Temp 37.2 C 11/18/16 08:37 Pulse 88 11/18/16 08:37 Resp 18 11/18/16 07:45 BP 164/92 H 11/18/16 08:37 Pulse Ox 96 11/18/16 08:37 Weight: 56.9 kg - Exam Quality Assessment: No: Supplemental Oxygen General: Alert, Oriented, Cooperative. No: Mild Distress HEENT: Conjunctiva Clear. No: Mucosa Moist & [place] (dry), Scleral Icterus Neck: Supple, Trachea Midline. No: Lymphadenopathy Lungs: Clear to Auscultation, Normal Respiratory Effort Cardiovascular: Regular Rate, Irregular Rhythm, Systolic Murmur Abdomen: Normal Bowel Sounds, Soft, Tenderness (mild diffuse). No: Distention, Guarding Back Exam: Paraspinal Tenderness (right paraspinal muscle), Vertebral Tenderness (lumbar spine), Other (right SI joint tenderness) Extremities: Normal Pulses. No: Cyanosis, Edema Peripheral Pulses: 2+: Dorsalis Pedis (L), Dorsalis Pedis (R) Skin: Warm, Dry, Wound (2 x 6 cm dry ulcerated and scabbed area left medial ankle just proximal to the medial malleolus. No surrounding erythema or induration) Neuro Extensive - Mental Status: Alert, Oriented x3, Nl Response to Commands Neuro Extensive - Motor, Sensory, Reflexes: CN II-XII Intact, Other (very hard of hearing). No: Dysarthria, Abnormal Motor, Tremor Psychiatric: Alert, Normal Affect - Patient Data Lab Results last 24 hrs: Laboratory Results - last 24 hr 11/18/16 11/18/16 11/18/16 Range/Units 07:45 07:45 07:45 WBC 9.4 (4.5-11.0) K/uL RBC 4.38 (3.30-5.50) M/uL Hgb 13.4 (12.0-15.0) g/dL Hct 41.7 (36.0-48.0) % MCV 95 (80-98) fL MCH 31 (27-31) pg MCHC 32 (32-36) % Plt Count 349 (150-400) K/uL Neut % (Auto) 80 H (36-66) % Lymph % (Auto) 11 L (24-44) % [place] % (Auto) 7 H (2-6) % Eos % (Auto) 2 (2-4) % Baso % (Auto) 0 (0-1) % PT (9.5-12.0) sec INR (0.80-1.20) Sodium 140 (140-148) mmol/L Potassium 4.5 (3.6-5.2) mmol/L Chloride 104 (100-108) mmol/L Carbon Dioxide 24 (21-32) mmol/L Anion Gap 12.2 (5.0-14.0) mmol/L BUN 24 H (7-18) mg/dL Creatinine 1.5 H (0.6-1.0) mg/dL Est Cr Clr Drug Dosing TNP Estimated GFR (MDRD) 33 L (>60) Glucose 107 H (74-106) mg/dL Calcium 8.8 (8.5-10.1) mg/dL Total Bilirubin 0.2 (0.2-1.0) mg/dL AST 20 (15-37) U/L ALT 14 (12-78) U/L Alkaline Phosphatase 68 (46-116) U/L Creatine Kinase 58 (26-192) U/L Troponin I < 0.017 (0.000-0.056) ng/mL Total Protein 8.1 (6.4-8.2) g/dL Albumin 2.6 L (3.4-5.0) g/dL Globulin 5.5 H (2.3-3.5) g/dL Albumin/Globulin Ratio 0.5 L (1.2-2.2) Urine Color Urine Appearance Urine pH (4.5-8.0) Ur Specific [place] (1.008-1.030) Urine Protein (NEGATIVE) mg/dL Urine Glucose (UA) (NEGATIVE) mg/dL Urine Ketones (NEGATIVE) mg/dL Urine Occult Blood (NEGATIVE) Urine Nitrite (NEGATIVE) Urine Bilirubin (NEGATIVE) Urine Urobilinogen (NORMAL) mg/dL Ur Leukocyte Esterase (NEGATIVE) Urine RBC (0-5) Urine WBC (0-5) Ur Epithelial Cells Amorphous Sediment Urine Bacteria Urine Mucus 11/18/16 11/18/16 Range/Units 08:58 09:05 WBC (4.5-11.0) K/uL RBC (3.30-5.50) M/uL Hgb (12.0-15.0) g/dL Hct (36.0-48.0) % MCV (80-98) fL MCH (27-31) pg MCHC (32-36) % Plt Count (150-400) K/uL Neut % (Auto) (36-66) % Lymph % (Auto) (24-44) % [place] % (Auto) (2-6) % Eos % (Auto) (2-4) % Baso % (Auto) (0-1) % PT 56.9 H (9.5-12.0) sec INR 5.10 H* D (0.80-1.20) Sodium (140-148) mmol/L Potassium (3.6-5.2) mmol/L Chloride (100-108) mmol/L Carbon Dioxide (21-32) mmol/L Anion Gap (5.0-14.0) mmol/L BUN (7-18) mg/dL Creatinine (0.6-1.0) mg/dL Est Cr Clr Drug Dosing Estimated GFR (MDRD) (>60) Glucose (74-106) mg/dL Calcium (8.5-10.1) mg/dL Total Bilirubin (0.2-1.0) mg/dL AST (15-37) U/L ALT (12-78) U/L Alkaline Phosphatase (46-116) U/L Creatine Kinase (26-192) U/L Troponin I (0.000-0.056) ng/mL Total Protein (6.4-8.2) g/dL Albumin (3.4-5.0) g/dL Globulin (2.3-3.5) g/dL Albumin/Globulin Ratio (1.2-2.2) Urine Color Yellow Urine Appearance Cloudy Urine pH 6.0 (4.5-8.0) Ur Specific [place] 1.020 (1.008-1.030) Urine Protein Trace (NEGATIVE) mg/dL Urine Glucose (UA) Normal (NEGATIVE) mg/dL Urine Ketones Negative (NEGATIVE) mg/dL Urine Occult Blood Large (NEGATIVE) Urine Nitrite Negative (NEGATIVE) Urine Bilirubin Negative (NEGATIVE) Urine Urobilinogen Normal (NORMAL) mg/dL Ur Leukocyte Esterase Large (NEGATIVE) Urine RBC 30-40 H (0-5) Urine WBC Packed H (0-5) Ur Epithelial Cells Few Amorphous Sediment Not seen Urine Bacteria Many Urine Mucus Not seen Result Diagrams: 11/18/16 07:45 11/18/16 07:45 Tommy Results last 24 hrs: Microbiology 11/18/16 08:43 Clostridium difficile (PCR) - Final Stool / Feces NEGATIVE CDIFF TOXIN 11/18/16 08:43 Stool Occult Blood (TOMMY) - Final Stool / Feces Imaging Impressions last 24 hrs: abdominal x-ray - images personally reviewed - there is no evidence for obstruction or abnormality Chest x-ray - images personally reviewed - there is no evidence for mass, infiltrate or effusion *Q Meaningful Use (ADM) - VTE *Q VTE Criteria *Q: - VTE Risk Assess *Q Each Risk Factor Represents 1 Point: None (and and and and and) Total Score 1 Point Risk Factors: 0 Each Risk Factor Represents 2 Points: None Total Score 2 Point Risk Factors: 0 Each Risk Factor Represents 3 Points: Age 75 Years or Greater (will) Total Score 3 Point Risk Factors: 3 Each Risk Factor Represents 5 Points: None Total Score 5 Point Risk Factors: 0 Venous Thromboembolism Risk Factor Score *Q: 3 - Stroke *Q Stroke Criteria *Q: - AMI *Q AMI Criteria *Q: - Problem List (1) Colostomy complication SNOMED Code(s): 62604838 ICD Code: K94.00 - COLOSTOMY COMPLICATION, UNSPECIFIED Status: Acute Current Visit: Yes (2) Acute cystitis SNOMED Code(s): 51890336 ICD Code: N30.00 - ACUTE CYSTITIS WITHOUT HEMATURIA Status: Acute Current Visit: Yes Qualifiers: Hematuria presence: without hematuria Qualified Code(s): N30.00 - Acute cystitis without hematuria (3) Supratherapeutic INR SNOMED Code(s): 879189224, 506809094 ICD Code: R79.1 - ABNORMAL COAGULATION PROFILE Status: Acute Current Visit: Yes (4) Dehydration SNOMED Code(s): 10909536 ICD Code: E86.0 - DEHYDRATION Status: Acute Current Visit: Yes (5) Chronic atrial fibrillation SNOMED Code(s): 909427022 ICD Code: I48.2 - CHRONIC ATRIAL FIBRILLATION Status: Chronic Current Visit: Yes (6) Stage III chronic kidney disease SNOMED Code(s): 992221263 ICD Code: N18.3 - CHRONIC KIDNEY DISEASE, STAGE 3 (MODERATE) Status: Chronic Current Visit: No (7) Rheumatoid arthritis SNOMED Code(s): 75212882 ICD Code: M06.9 - RHEUMATOID ARTHRITIS, UNSPECIFIED Status: Chronic Current Visit: No Qualifiers: Rheumatoid factor presence: unspecified presence Laterality: bilateral (8) Chronic back pain SNOMED Code(s): 561562625 ICD Code: M54.9 - DORSALGIA, UNSPECIFIED; G89.29 - OTHER CHRONIC PAIN Status: Chronic Current Visit: Yes Qualifiers: Back pain location: low back pain Back pain laterality: right Sciatica presence: with sciatica Sciatica laterality: sciatica of right side Qualified Code(s): M54.41 - Lumbago with sciatica, right side; G89.29 - Other chronic pain Problem List Initiated/Reviewed/Updated: Yes Orders Last 24hrs: Active Orders 24 hr Category Date Time Status Patient Status Manage Transfer [TRANSFER] Routine ADT 11/18/16 09:38 Ordered EKG Documentation Completion [RC] ASDIRECTED Care 11/18/16 07:30 Active CULTURE URINE [RM] Stat Lab 11/18/16 09:34 Uncollected Sodium Chloride 0.9% [Normal Saline] 1,000 ml Med 11/18/16 07:45 Active IV ASDIRECTED Sodium Chloride 0.9% [Normal Saline] 1,000 ml Med 11/18/16 09:15 Active IV ASDIRECTED cefTRIAXone [Rocephin] 1 gm Med 11/18/16 10:00 Active Sodium Chloride 0.9% [Normal Saline] 50 ml IV Q24H Resuscitation Status Routine Resus Stat 11/18/16 09:43 Ordered EKG 12 Lead [EK] Routine Ther 11/18/16 07:30 Ordered Medication Orders Sodium Chloride (Normal Saline) 1,000 mls @ 500 mls/hr IV ASDIRECTED ALICIA Last Admin: 11/18/16 08:51 Dose: 500 mls/hr Sodium Chloride (Normal Saline) 1,000 mls @ 250 mls/hr IV ASDIRECTED ALICIA Ceftriaxone Sodium 1 gm/ (Sodium Chloride) 50 mls @ 100 mls/hr IV Q24H [facility] Assessment/Plan Comment:: Assessment and plan - Temporary bowel obstruction, possibly due to obstipation - patient passed a large hard stool and then had significant quantity of liquid stool afterwards. She has had recent antibiotics and C. difficile testing is pending. Pain has improved significantly after the bowel movement. No fevers. Colostomy is now providing of watery stool.mild dehydration with poor oral intake over the past 24 hours. -Pain control -Followup C. difficile testing -IV fluids -Monitor colostomy output Acute cystitis - urine sample suggest infection at this time. Recently had Bactrim for urinary tract infection. -Ceftriaxone -Followup culture Acute on chronic lower back pain with right radiculopathy - no recent trauma or obvious reason for the worsening. Current pain medications are not providing adequate relief. -Medrol Dosepak -Hydrocodone as needed Aupratherapeutic INR - warfarin will be held today. No obvious evidence for bleeding. -Hold warfarin, INR in the morning Chronic atrial fibrillation - chronically anticoagulated. Adequate rate control at this time. -Continue home medications Rheumatoid arthritis - chronic, stable. No evidence for exacerbation of chronic disease. Maintenance issues - - DVT prophylaxis - warfarin - GI prophylaxis - PPI - Nutrition - regular - Rai catheter - not indicated CODE STATUS - DO NOT RESUSCITATE/DO NOT INTUBATE Admission justification - This patient will be admitted for inpatient services and is medically appropriate meeting medical necessity for inpatient admission as outlined in my documentation. I reasonably expect the patient will require inpatient services that span a period time over 2 midnights. I reasonably expect this patient to be discharged or transferred within 96 hours after admission to the [facility]. Disposition - patient would benefit from subacute rehabilitation at the shelter but she adamantly declines shelter stay at this time. She does not have a safe home situation either. Primary care physician - Dr. Ronnie Hennessy M.D.
[2016-11-18] MEDS: cefTRIAXone 1 GM in Sodium Chloride 0.9% 50 ML IV SCH (09:53)
[2016-11-18] MEDS ORDERED: Acetaminophen 325 MG Tab PO PRN (10:58)
[2016-11-18] MEDS ORDERED: Polyethylene Glycol 3350 Powder 17 GM Packet PO PRN (10:58)
[2016-11-18] MEDS ORDERED: Ondansetron 4 MG/2 ML SDV IV PRN (10:58)
[2016-11-18] MEDS ORDERED: Ondansetron 4 MG Tab.DIS PO PRN (10:58)
[2016-11-18] MEDS ORDERED: Acetaminophen/HYDROcodone 325-10 MG Tab PO PRN (10:58)
[2016-11-18] MEDS ORDERED: methylPREDNISolone 4 MG Tab 21 Tab/Dosepak PO SCH (11:45)
[2016-11-18] MEDS: Metoprolol Succinate 50 MG Tab.ER PO SCH (12:31)
[2016-11-18] MEDS: Levothyroxine 75 MCG Tab PO SCH (12:31)
[2016-11-18] MEDS: Sodium Chloride 0.9% 1,000 ML IV SCH ×3 (12:48→23:01)
[2016-11-18] MEDS: Simvastatin 20 MG Tab PO SCH (20:29)
[2016-11-18] MEDS: Tolterodine 2 MG Tab PO SCH (20:29)
[2016-11-18] MEDS: Niacin 500 MG Cap.ER PO SCH (20:29)
[2016-11-18] MEDS: DILTIAZEM PO SCH ×2 (20:30)
[2016-11-18] MEDS: Dorzolamide 2% Ophth Soln 10 ML Bottle EYEBOTH SCH (20:31)
[2016-11-18] MEDS ORDERED: DILTIAZEM HCL 300 MG PO SCH (21:00)
[2016-11-19] MEDS: Levothyroxine 75 MCG Tab PO SCH (07:23)
[2016-11-19] MEDS: Pantoprazole 40 MG Tab.CR PO SCH (07:24)
[2016-11-19] MEDS: Potassium Chloride 20 MEQ Tab.ER PO SCH (08:15)
[2016-11-19] MEDS: Metoprolol Succinate 50 MG Tab.ER PO SCH (08:15)
[2016-11-19] MEDS: Multivitamins with Iron/Calcium/Folic Acid/Minerals Tab PO SCH (08:15)
[2016-11-19] MEDS: Folic Acid 1 MG Tab PO SCH (08:15)
[2016-11-19] MEDS: Niacin 500 MG Cap.ER PO SCH ×2 (08:15→21:21)
[2016-11-19] MEDS: Tolterodine 2 MG Tab PO SCH ×2 (08:16→21:21)
[2016-11-19] MEDS: Dorzolamide 2% Ophth Soln 10 ML Bottle EYEBOTH SCH ×2 (08:16→21:22)
[2016-11-19] MEDS: cefTRIAXone 1 GM in Sodium Chloride 0.9% 50 ML IV SCH (09:04)
[2016-11-19] MEDS: Sodium Chloride 0.9% 1,000 ML IV SCH (09:04)
[2016-11-19] MEDS ORDERED: Docusate Sodium 100 MG Cap PO PRN (09:27)
[2016-11-19] MEDS ORDERED: Digoxin 125 MCG Tab PO SCH (13:00)
--- NOTE | 2016-11-19 16:32 | PCM.PN ---
- General Info Date of Service: 11/19/16 Functional Status: Reports: pain controlled, tolerating diet, ambulating - Review of Systems General: Reports: Weakness Pulmonary: Denies: shortness of breath Systems Review Comment:: No acute events overnight. She has not had any fevers. Urine culture is pending at this time. Appetite and strength both seem better today. No difficulties with colostomy and she is passing both stool and gas into her colostomy bag. Heart rate has been controlled with usual medications. Patient is not very excited about going to the assisted but understands this may be the best option for her at least in the short-term. - Patient Data Vitals - most recent: Last Vital Signs Temp 36.9 C 11/19/16 15:00 Pulse 99 11/19/16 15:00 Resp 18 11/19/16 15:00 BP 153/77 H 11/19/16 15:00 Pulse Ox 97 11/19/16 15:00 Weight - most recent: 54.114 kg I&O - last 24 hours: Intake & Output 11/19/16 11/19/16 11/19/16 06:59 14:59 22:59 Intake Total 1121 290 Output Total 50 50 Balance 1071 290 -50 Lab Results last 24 hrs: Laboratory Results - last 24 hr 11/19/16 11/19/16 11/19/16 Range/Units 05:11 05:11 05:11 WBC 7.4 (4.5-11.0) K/uL RBC 3.92 (3.30-5.50) M/uL Hgb 11.8 L (12.0-15.0) g/dL Hct 37.7 (36.0-48.0) % MCV 96 (80-98) fL MCH 30 (27-31) pg MCHC 31 L (32-36) % Plt Count 298 (150-400) K/uL PT 54.1 H (9.5-12.0) sec INR 4.86 H* (0.80-1.20) Sodium 142 (140-148) mmol/L Potassium 4.7 (3.6-5.2) mmol/L Chloride 110 H (100-108) mmol/L Carbon Dioxide 22 (21-32) mmol/L Anion Gap 14.7 H (5.0-14.0) mmol/L BUN 19 H (7-18) mg/dL Creatinine 1.0 (0.6-1.0) mg/dL Est Cr Clr Drug Dosing 29.54 mL/min Estimated GFR (MDRD) 53 L (>60) Glucose 136 H (74-106) mg/dL Calcium 8.2 L (8.5-10.1) mg/dL Tommy Results last 24 hrs: Microbiology 11/18/16 10:07 Urine Culture - Preliminary Urine, Quick Cath (In-Out) MIXED POSITIVE DAVID DAY 1 Med Orders - Current: Current Medications Acetaminophen (Tylenol) 650 mg PO Q4H PRN PRN Reason: Pain (Mild 1-3)/fever Last Admin: 11/18/16 16:41 Dose: 650 mg Hydrocodone Bitart/Acetaminophen ([place] 325-10 Mg) 1 tab PO Q6H PRN PRN Reason: Pain Digoxin (Lanoxin) 125 mcg PO Q48H [facility] Last Admin: 11/19/16 13:27 Dose: 125 mcg Diltiazem HCl 180 mg/ (Diltiazem HCl 120 mg) 300 mg PO BEDTIME [facility] Last Admin: 11/18/16 20:30 Dose: 300 mg Docusate Sodium (Colace) 200 mg PO BID PRN PRN Reason: Constipation Dorzolamide HCl (Trusopt 2% Ophth Soln) 0 ml EYEBOTH BID [facility] Last Admin: 11/19/16 08:16 Dose: 1 drop Folic Acid (Folic Acid) 1 mg PO DAILY [facility] Last Admin: 11/19/16 08:15 Dose: 1 mg Ceftriaxone Sodium 1 gm/ (Sodium Chloride) 50 mls @ 100 mls/hr IV Q24H [facility] Last Admin: 11/19/16 09:04 Dose: 100 mls/hr Sodium Chloride (Normal Saline) 1,000 mls @ 100 mls/hr IV ASDIRECTED [facility] Last Admin: 11/19/16 09:04 Dose: 100 mls/hr Levothyroxine Sodium (Levothyroxine) 75 mcg PO ACBRK [facility] Last Admin: 11/19/16 07:23 Dose: 75 mcg Methylprednisolone (Medrol) 4 mg PO TIDMEALS [facility] Stop: 11/19/16 17:01 Last Admin: 11/19/16 11:12 Dose: 4 mg Methylprednisolone (Medrol) 8 mg PO BEDTIME [facility] Stop: 11/19/16 21:01 Methylprednisolone (Medrol) 4 mg PO 0800,1100,1700,2100 [facility] Stop: 11/20/16 21:01 Methylprednisolone (Medrol) 4 mg PO TID@0800,1100,2100 [facility] Stop: 11/21/16 21:01 Methylprednisolone (Medrol) 4 mg PO BID@0800,2100 [facility] Stop: 11/22/16 21:01 Methylprednisolone (Medrol) 4 mg PO WITHBREAKFAST [facility] Stop: 11/23/16 08:01 Metoprolol Succinate (Toprol Xl) 50 mg PO DAILY [facility] Last Admin: 11/19/16 08:15 Dose: 50 mg Multivitamins/Minerals (Thera M Plus) 1 tab PO DAILY [facility] Last Admin: 11/19/16 08:15 Dose: 1 tab Niacin (Niacin) 500 mg PO BID [facility] Last Admin: 11/19/16 08:15 Dose: 500 mg Ondansetron HCl (Zofran Odt) 4 mg PO Q6H PRN PRN Reason: Nausea able to take PO Ondansetron HCl (Zofran) 4 mg IV Q6H PRN PRN Reason: Nausea/Vomiting Pantoprazole Sodium (Protonix) 40 mg PO ACBREAKFAST [facility] Last Admin: 11/19/16 07:24 Dose: 40 mg Polyethylene Glycol (Miralax) 17 gm PO DAILY PRN PRN Reason: Constipation Potassium Chloride (Klor-Con M20) 20 meq PO DAILY [facility] Last Admin: 11/19/16 08:15 Dose: 20 meq Simvastatin (Zocor) 20 mg PO BEDTIME [facility] Last Admin: 11/18/16 20:29 Dose: 20 mg Tolterodine Tartrate (Detrol) 1 mg PO BID [facility] Last Admin: 11/19/16 08:16 Dose: 1 mg Discontinued Medications Sodium Chloride (Normal Saline) 1,000 mls @ 500 mls/hr IV ASDIRECTED [facility] Last Admin: 11/18/16 08:51 Dose: 500 mls/hr Sodium Chloride (Normal Saline) 1,000 mls @ 250 mls/hr IV ASDIRECTED [facility] Methylprednisolone (Medrol) 1 mg PO ASDIRECTED [facility] PRN Reason: Protocol Methylprednisolone (Medrol) 8 mg PO TID@1200,1700,2100 [facility] Stop: 11/18/16 21:01 Last Admin: 11/18/16 20:28 Dose: 8 mg Non-Formulary Medication (Diltiazem Hcl [Diltiazem 24hr Cd]) 300 mg PO BEDTIME ALICIA - Exam Quality Assessment: No: supplemental oxygen General: alert, oriented, cooperative, no acute distress Neck: supple Lungs: Clear to auscultation, Normal respiratory effort Cardiovascular: Regular Rate, Irregular Rhythm Abdomen: soft, no distension Extremities: no edema, no cyanosis Skin: warm, dry Wound/Incisions: dressing dry and intact Psy/Mental Status: alert, normal affect - Problem List & Annotations (1) Colostomy complication SNOMED Code(s): 59563661 Code(s): K94.00 - COLOSTOMY COMPLICATION, UNSPECIFIED Status: Acute Current Visit: Yes (2) Supratherapeutic INR SNOMED Code(s): 622907831, 082820022 Code(s): R79.1 - ABNORMAL COAGULATION PROFILE Status: Acute Current Visit : Yes (3) Acute cystitis SNOMED Code(s): 98355769 Code(s): N30.00 - ACUTE CYSTITIS WITHOUT HEMATURIA Status: Acute Current Visit: Yes Qualifiers: Hematuria presence: without hematuria Qualified Code(s): N30.00 - Acute cystitis without hematuria (4) Dehydration SNOMED Code(s): 51583339 Code(s): E86.0 - DEHYDRATION Status: Acute Current Visit: Yes (5) Chronic atrial fibrillation SNOMED Code(s): 309651732 Code(s): I48.2 - CHRONIC ATRIAL FIBRILLATION Status: Chronic Current Visit: Yes (6) Stage III chronic kidney disease SNOMED Code(s): 811545930 Code(s): N18.3 - CHRONIC KIDNEY DISEASE, STAGE 3 (MODERATE) Status: Chronic Current Visit: No (7) Rheumatoid arthritis SNOMED Code(s): 73764100 Code(s): M06.9 - RHEUMATOID ARTHRITIS, UNSPECIFIED Status: Chronic Current Visit: No Qualifiers: Rheumatoid factor presence: unspecified presence Laterality: bilateral (8) Chronic back pain SNOMED Code(s): 105798423 Code(s): M54.9 - DORSALGIA, UNSPECIFIED; G89.29 - OTHER CHRONIC PAIN Status : Chronic Current Visit: Yes Qualifiers: Back pain location: low back pain Back pain laterality: right Sciatica presence: with sciatica Sciatica laterality: sciatica of right side Qualified Code(s): M54.41 - Lumbago with sciatica, right side; G89.29 - Other chronic pain - Problem List Review Problem List Initiated/Reviewed/Updated: Yes - My Orders Last 24 Hours: My Active Orders 11/18/16 21:00 Diltiazem [Cardizem Cd] 300 mg PO BEDTIME 11/19/16 08:00 methylPREDNISolone [Medrol] 4 mg PO TIDMEALS 11/19/16 09:27 Docusate Sodium [Colace] 200 mg PO BID PRN 11/19/16 21:00 methylPREDNISolone [Medrol] 8 mg PO BEDTIME 11/20/16 08:00 methylPREDNISolone [Medrol] 4 mg PO 0800,1100,1700,2100 11/21/16 08:00 methylPREDNISolone [Medrol] 4 mg PO TID@0800,1100,2100 11/22/16 08:00 methylPREDNISolone [Medrol] 4 mg PO BID@0800,2100 11/23/16 08:00 methylPREDNISolone [Medrol] 4 mg PO WITHBREAKFAST - Plan Plan:: Assessment and plan - Temporary bowel obstruction, possibly due to obstipation - no issues since the time of admission. -Pain control -Encourage oral intake -Monitor colostomy output Acute cystitis - urine sample suggest infection at this time. Recently had Bactrim for urinary tract infection. Cultures pending. -Ceftriaxone -Followup culture Acute on chronic lower back pain with right radiculopathy - no recent trauma or obvious reason for the worsening. Pain has improved since admission. -Medrol Dosepak -Hydrocodone as needed Supratherapeutic INR - warfarin will be held again today. No obvious evidence for bleeding. -Hold warfarin, INR in the morning Chronic atrial fibrillation - chronically anticoagulated. Adequate rate control at this time. -Continue home medications Rheumatoid arthritis - chronic, stable. No evidence for exacerbation of chronic disease. She does have some increased back pain from baseline and is receiving a Medrol Dosepak. -Complete Medrol Dosepak Maintenance issues - - DVT prophylaxis - warfarin - GI prophylaxis - PPI - Nutrition - regular - Rai catheter - not indicated Disposition - patient would benefit from subacute rehabilitation and a referral request will be sent to local nursing homes. Heber Hennessy M.D.
[2016-11-19] MEDS: DILTIAZEM PO SCH ×2 (21:20)
[2016-11-19] MEDS: Simvastatin 20 MG Tab PO SCH (21:21)
[2016-11-20] MEDS: Levothyroxine 75 MCG Tab PO SCH (07:03)
[2016-11-20] MEDS: Pantoprazole 40 MG Tab.CR PO SCH (07:04)
[2016-11-20] MEDS: Metoprolol Succinate 50 MG Tab.ER PO SCH (08:32)
[2016-11-20] MEDS: Tolterodine 2 MG Tab PO SCH (08:33)
[2016-11-20] MEDS: Niacin 500 MG Cap.ER PO SCH (08:33)
[2016-11-20] MEDS: Folic Acid 1 MG Tab PO SCH (08:34)
[2016-11-20] MEDS: Multivitamins with Iron/Calcium/Folic Acid/Minerals Tab PO SCH (08:34)
[2016-11-20] MEDS: Potassium Chloride 20 MEQ Tab.ER PO SCH (08:34)
[2016-11-20] MEDS: Dorzolamide 2% Ophth Soln 10 ML Bottle EYEBOTH SCH (08:35)
[2016-11-20] MEDS: cefTRIAXone 1 GM in Sodium Chloride 0.9% 50 ML IV SCH (10:07)
[2016-11-20 11:10] VITALS: BP 148/76
--- NOTE | 2016-11-20 14:20 | PCM.DCSUM1 ---
Discharge Summary - Hospital Course Brief History: 86-year-old female with past medical history including chronic atrial fibrillation, colostomy status and chronic anticoagulation who presented with vomiting, abdominal pain and was admitted for management of acute cystitis and colostomy dysfunction. - Discharge Data Discharge Date: 11/20/16 Discharge Disposition: DC/Tfer to [facility] 03 Condition: Fair - Discharge Diagnosis/Problem(s) (1) Acute cystitis SNOMED Code(s): 81909625 ICD Code: N30.00 - ACUTE CYSTITIS WITHOUT HEMATURIA Status: Acute Current Visit: Yes Qualifiers: Hematuria presence: without hematuria Qualified Code(s): N30.00 - Acute cystitis without hematuria (2) Colostomy complication SNOMED Code(s): 71957358 ICD Code: K94.00 - COLOSTOMY COMPLICATION, UNSPECIFIED Status: Acute Current Visit: Yes (3) Supratherapeutic INR SNOMED Code(s): 067302181, 843601750 ICD Code: R79.1 - ABNORMAL COAGULATION PROFILE Status: Acute Current Visit: Yes (4) Dehydration SNOMED Code(s): 12316064 ICD Code: E86.0 - DEHYDRATION Status: Acute Current Visit: Yes (5) Chronic atrial fibrillation SNOMED Code(s): 610163488 ICD Code: I48.2 - CHRONIC ATRIAL FIBRILLATION Status: Chronic Current Visit: Yes (6) Stage III chronic kidney disease SNOMED Code(s): 747862566 ICD Code: N18.3 - CHRONIC KIDNEY DISEASE, STAGE 3 (MODERATE) Status: Chronic Current Visit: No (7) Rheumatoid arthritis SNOMED Code(s): 22805550 ICD Code: M06.9 - RHEUMATOID ARTHRITIS, UNSPECIFIED Status: Chronic Current Visit: No Qualifiers: Rheumatoid factor presence: unspecified presence Laterality: bilateral (8) Chronic back pain SNOMED Code(s): 898043084 ICD Code: M54.9 - DORSALGIA, UNSPECIFIED; G89.29 - OTHER CHRONIC PAIN Status: Chronic Current Visit: Yes Qualifiers: Back pain location: low back pain Back pain laterality: right Sciatica presence: with sciatica Sciatica laterality: sciatica of right side Qualified Code(s): M54.41 - Lumbago with sciatica, right side; G89.29 - Other chronic pain - Patient Summary/Data Consults: physical therapy Hospital Course: Esther presented to the emergency room with vomiting and abdominal pain. While in the emergency room she passed a large hard stool in her colostomy before the colostomy ruptured. She had significant liquid stool following the passage of the large hard stool. There is also evidence for a urinary tract infection despite recent antibiotics. She was very weak and was not thought to be safe for outpatient management so she was admitted to the hospital. She received some IV fluids following admission. She was started on empiric antibiotics for the suspected urinary tract infection. She did not have further difficulties with her colostomy or bowels after hospital admission. She has not had any fevers. Her urine culture has grown only mixed [place] and antibiotics have been discontinued. We have discontinued her IV fluids and she's been able to maintain hydration well just with oral intake. she did work with physical therapy but is weak. There is a lot of concern about her safety at home given her generalized weakness and multiple medications. She is resistant to but agreeable with the idea of going to a care home for some subacute rehabilitation. She will benefit from physical and occupational therapy to help improve her strength and endurance. At the time of presentation her INR was elevated at more than 5. We held her warfarin for 2 days and her INR is now down to 1.5. She did receive a 1.5 mg dose of warfarin the day of discharge. I plan to resume her usual warfarin dosing and I suspect that the recent elevation was caused by the patient being on antibiotics. Her chronic atrial fibrillation has been stable in rate control. She does have a large callus on her left second toe. I think she would benefit from a podiatry referral and I have placed one to see Dr Whittington. She also has a healing ulcer on her left lower leg. She would benefit from wound changes as outlined in the discharge instructions. her chronic kidney disease has been stable. - Patient Instructions Diet: Regular Diet as Tolerated (general geriatric diet) Activity: As Tolerated Showering/Bathing: May Shower Notify Provider of: Fever, Increased Pain, Nausea and/or Vomiting Other/Special Instructions: 1. You were in the hospital for management of acute cystitis with generalized weakness as well as obstipation and colostomy dysfunction. The urine culture did not grow a significant quantity of bacteria and no additional antibiotics are needed. Your colostomy seems to be functioning normally again. I would recommend that you continue your stool softeners after hospital discharge. 2. For your increased back pain I started you on a Medrol Dosepak. You should take 4 mg at 1700 and 2100 today. You should take 4 mg 3 times a day tomorrow (), 2 times per day in the morning and evening on Friday and 4 mg Friday morning. Please do not take your prednisone while you are on the Medrol Dosepak. You should start your prednisone again on Friday morning. 3. You should resume your usual warfarin dosing. Your next INR will be due on Friday. diagnosis - atrial fibrillation. 4. CODE STATUS - DO NOT RESUSCITATE and DO NOT INTUBATE. 5. I have placed a referral to physical therapy and occupational therapy. They will provide strengthening and rehabilitation while you're in the care home. 6. Wound care - left lower leg ulceration - please clean and pat dry the lower leg wound each day. Cover with gauze and secure with tape. 7. Referral to podiatry w/ Dr Whittington. Left second toe callus evaluation. 8. Please seek medical attention if you develop fever greater than 101, severe diarrhea, sudden onset of shortness of breath. - Discharge Plan Prescriptions/Med Rec: Acetaminophen/HYDROcodone [[place] 325-10 MG] 1 tab PO Q6H PRN #90 tablet PRN Reason: Pain methylPREDNISolone [Medrol] 4 mg PO ASDIRECTED #8 tablet Home Medications: Home Meds Docusate Sodium [Colace] 200 mg PO BID PRN 04/14/13 [History] Dorzolamide HCl [Trusopt] 1 drop EYEBOTH BID 04/14/13 [History] Folic Acid/Vitamin B Comp W-C [Nephrocaps Softgel] 1 mg PO DAILY 04/14/13 [ History] Levothyroxine [Synthroid] 75 mcg PO ACBRK 04/14/13 [History] Multivitamin [Multi-Vitamin Daily] 1 each PO DAILY 04/14/13 [History] Niacin [Niaspan] 500 mg PO BID 04/14/13 [History] Potassium Chloride [Klor-Con M20] 20 meq PO DAILY 04/14/13 [History] Simvastatin [Zocor] 20 mg PO BEDTIME 04/14/13 [History] predniSONE [Prednisone] 5 mg PO DAILY 04/14/13 [History] Folic Acid 1 mg PO DAILY 01/18/14 [History] Cholecalciferol (Vitamin D3) [Vitamin D3] 1,000 unit PO DAILY 04/15/14 [History] Furosemide [Lasix] 40 mg PO BID 06/03/14 [History] Calcium Carbonate/Vitamin D3 [Calcium 600 + Vit D 400 Softgl] 1 cap PO BID 03/29 [History] Ferrous Sulfate 325 mg PO DAILY 03/29/15 [History] Omeprazole 40 mg PO QAM 03/29/15 [History] Diltiazem HCl [Diltiazem 24Hr Cd] 300 mg PO BEDTIME #90 cap.er.24h 06/07/16 [Rx] Metoprolol Succinate [Toprol XL] 50 mg PO DAILY #90 tab.er 06/07/16 [Rx] Digoxin 1 tab PO Q48H 08/13/16 [History] Tolterodine Tartrate 1 mg PO BID 11/18/16 [History] tiZANidine [Zanaflex] 1 tab PO Q8H PRN 11/18/16 [History] Acetaminophen/HYDROcodone [[place] 325-10 MG] 1 tab PO Q6H PRN #90 tablet [Rx] Warfarin [Coumadin] 1.5 mg PO MOWETHFRSA #30 11/20/16 [Rx] Warfarin [Coumadin] 2.5 mg PO ASDIRECTED #0 11/20/16 [Rx] methylPREDNISolone [Medrol] 4 mg PO ASDIRECTED #8 tablet 11/20/16 [Rx] Patient Handouts: Urinary Tract Infection, Adult, [id number] Referrals: Cooper Trujillo MD [Physician] - (1-2 weeks - followup hospital stay for bladder infection, weakness and back pain) - Discharge Summary/Plan Comment DC Time >30 min.: Yes (40 - new care home discharge) - Patient Data Vitals - Most Recent: Last Vital Signs Temp 36.1 C 11/20/16 11:09 Pulse 85 11/20/16 11:09 Resp 16 11/20/16 11:09 BP 148/76 H 11/20/16 11:09 Pulse Ox 97 11/20/16 11:09 Weight - Most Recent: 54.114 kg I&O - Last 24 hours: Intake & Output 11/19/16 11/20/16 11/20/16 22:59 06:59 14:59 Intake Total 480 200 406 Output Total 250 Balance 230 200 406 Lab Results - Last 24 hrs: Laboratory Results - last 24 hr 11/20/16 Range/Units 13:18 PT 16.5 H (9.5-12.0) sec INR 1.52 H D (0.80-1.20) TASIA Results - Last 24 hrs: Microbiology 11/18/16 10:07 Urine Culture - Final Urine, Quick Cath (In-Out) MIXED POSITIVE [place] DAY 2 Med Orders - Current: Current Medications Acetaminophen (Tylenol) 650 mg PO Q4H PRN PRN Reason: Pain (Mild 1-3)/fever Last Admin: 11/18/16 16:41 Dose: 650 mg Hydrocodone Bitart/Acetaminophen ([place] 325-10 Mg) 1 tab PO Q6H PRN PRN Reason: Pain Digoxin (Lanoxin) 125 mcg PO Q48H [facility] Last Admin: 11/19/16 13:27 Dose: 125 mcg Diltiazem HCl 180 mg/ (Diltiazem HCl 120 mg) 300 mg PO BEDTIME [facility] Last Admin: 11/19/16 21:20 Dose: 300 mg Docusate Sodium (Colace) 200 mg PO BID PRN PRN Reason: Constipation Last Admin: 11/19/16 19:25 Dose: 200 mg Dorzolamide HCl (Trusopt 2% Ophth Soln) 0 ml EYEBOTH BID [facility] Last Admin: 11/20/16 08:35 Dose: 1 drop Folic Acid (Folic Acid) 1 mg PO DAILY [facility] Last Admin: 11/20/16 08:34 Dose: 1 mg Ceftriaxone Sodium 1 gm/ (Sodium Chloride) 50 mls @ 100 mls/hr IV Q24H [facility] Last Admin: 11/20/16 10:07 Dose: 100 mls/hr Levothyroxine Sodium (Levothyroxine) 75 mcg PO ACBRK [facility] Last Admin: 11/20/16 07:03 Dose: 75 mcg Methylprednisolone (Medrol) 4 mg PO 0800,1100,1700,2100 [facility] Stop: 11/20/16 21:01 Last Admin: 11/20/16 10:51 Dose: 4 mg Methylprednisolone (Medrol) 4 mg PO TID@0800,1100,2100 [facility] Stop: 11/21/16 21:01 Methylprednisolone (Medrol) 4 mg PO BID@0800,2100 [facility] Stop: 11/22/16 21:01 Methylprednisolone (Medrol) 4 mg PO WITHBREAKFAST [facility] Stop: 11/23/16 08:01 Metoprolol Succinate (Toprol Xl) 50 mg PO DAILY [facility] Last Admin: 11/20/16 08:32 Dose: 50 mg Multivitamins/Minerals (Thera M Plus) 1 tab PO DAILY [facility] Last Admin: 11/20/16 08:34 Dose: 1 tab Niacin (Niacin) 500 mg PO BID [facility] Last Admin: 11/20/16 08:33 Dose: 500 mg Ondansetron HCl (Zofran Odt) 4 mg PO Q6H PRN PRN Reason: Nausea able to take PO Ondansetron HCl (Zofran) 4 mg IV Q6H PRN PRN Reason: Nausea/Vomiting Pantoprazole Sodium (Protonix) 40 mg PO ACBREAKFAST [facility] Last Admin: 11/20/16 07:04 Dose: 40 mg Polyethylene Glycol (Miralax) 17 gm PO DAILY PRN PRN Reason: Constipation Potassium Chloride (Klor-Con M20) 20 meq PO DAILY [facility] Last Admin: 11/20/16 08:34 Dose: 20 meq Simvastatin (Zocor) 20 mg PO BEDTIME [facility] Last Admin: 11/19/16 21:21 Dose: 20 mg Tolterodine Tartrate (Detrol) 1 mg PO BID [facility] Last Admin: 11/20/16 08:33 Dose: 1 mg Warfarin Sodium (Coumadin) 1.5 mg PO ONETIME ONE Stop: 11/20/16 14:31 Discontinued Medications Sodium Chloride (Normal Saline) 1,000 mls @ 500 mls/hr IV ASDIRECTED [facility] Last Admin: 11/18/16 08:51 Dose: 500 mls/hr Sodium Chloride (Normal Saline) 1,000 mls @ 250 mls/hr IV ASDIRECTED [facility] Sodium Chloride (Normal Saline) 1,000 mls @ 100 mls/hr IV ASDIRECTED [facility] Last Admin: 11/19/16 09:04 Dose: 100 mls/hr Methylprednisolone (Medrol) 1 mg PO ASDIRECTED [facility] PRN Reason: Protocol Methylprednisolone (Medrol) 8 mg PO TID@1200,1700,2100 [facility] Stop: 11/18/16 21:01 Last Admin: 11/18/16 20:28 Dose: 8 mg Methylprednisolone (Medrol) 4 mg PO TIDMEALS [facility] Stop: 11/19/16 17:01 Last Admin: 11/19/16 16:48 Dose: 4 mg Methylprednisolone (Medrol) 8 mg PO BEDTIME [facility] Stop: 11/19/16 21:01 Last Admin: 11/19/16 21:21 Dose: 8 mg Non-Formulary Medication (Diltiazem Hcl [Diltiazem 24hr Cd]) 300 mg PO BEDTIME [facility]IC[facility] - Exam General: Reports: alert, oriented, cooperative Cardiovascular: Reports: Regular Rate, Irregular Rhythm Abdomen: Reports: soft, no tenderness, other (colostomy left side of abdomen, light brown stool present) Extremities: Reports: other (thick callus and ulceration left 2nd toe. No evdidence for infection. 2x6 healing ulceration left medial lower leg with no evidence for infection. ) Psy/Mental Status: Reports: alert, normal affect *Q Meaningful Use (DIS) - VTE *Q VTE Criteria *Q: - Stroke *Q Stroke Criteria *Q: - AMI *Q AMI Criteria *Q:
== END 2016-11-20 14:46 | DRG 394 ==
LOC: JP.ED 07:24 → JP.MS 10:02
PROVIDERS: ADMIT Internal Medicine; ATTEND Internal Medicine
DX: K94.03 Colostomy malfunction (principal); N30.00 Acute cystitis without hematuria; L97.829 Non-pressure chronic ulcer of other part of left lower leg with unspecified severity; K94.00 Colostomy complication, unspecified; E86.0 Dehydration; I12.9 Hypertensive chronic kidney disease with stage 1 through stage 4 chronic kidney disease, or unspecified chronic kidney disease; Z66 Do not resuscitate; E03.9 Hypothyroidism, unspecified; R79.1 Abnormal coagulation profile; I48.2 Chronic atrial fibrillation; Z79.01 Long term (current) use of anticoagulants; N18.3 Chronic kidney disease, stage 3 (moderate); M06.9 Rheumatoid arthritis, unspecified; E78.00 Pure hypercholesterolemia, unspecified; M54.41 Lumbago with sciatica, right side; G89.29 Other chronic pain; Z85.828 Personal history of other malignant neoplasm of skin; K21.9 Gastro-esophageal reflux disease without esophagitis; K59.09 Other constipation; Z87.01 Personal history of pneumonia (recurrent); Z95.0 Presence of cardiac pacemaker; Z86.718 Personal history of other venous thrombosis and embolism; H91.90 Unspecified hearing loss, unspecified ear; H54.7 Unspecified visual loss; Z87.440 Personal history of urinary (tract) infections; Z96.659 Presence of unspecified artificial knee joint; Z88.8 Allergy status to other drugs, medicaments and biological substances; Z79.52 Long term (current) use of systemic steroids; L84 Corns and callosities; R53.1 Weakness
CPT/HCPCS: 36415; 71010 ×2; 74000 ×2; 80053; 81001; 82272; 82550; 84484; 85025; 85610; 87493; 93005; 96365; 99285; J0696; J7040; J7050; 80048; 85027; 87086; 93010; 97110-GP; 97162-GP; 97530-GP; A9270-GY

== ENCOUNTER 2018-02-19 14:24 | Inpatient (IN) | payer MEDICARE, BC ==
--- NOTE | 2018-02-19 15:57 | EDM.PDOC ---
ED HPI GENERAL MEDICAL PROBLEM - General Chief Complaint: Gastrointestinal Problem Stated Complaint: NAUSIA AND VOMITING Time Seen by Provider: 02/19/18 15:57 Source of Information: Reports: Patient History Limitations: Reports: No Limitations - History of Present Illness INITIAL COMMENTS - FREE TEXT/NARRATIVE: pt was sent from the custodial because of episodes of vomiting. She has a large ulcer on the rt leg which Dr Mejia was to look at. She has had a low grade temp off and on. Onset: Gradual, Other ( This has been going on for 1 week to 10 days. ) Duration: Hour(s): Location: Reports: Abdomen Associated Symptoms: Reports: Nausea/Vomiting, Weakness - Related Data Allergies Allergy/AdvReac Type Severity Reaction Status Date / Time celecoxib [From Celebrex] AdvReac Nausea Verified 02/19/18 14:55 leflunomide [From Arava] AdvReac Diarrhea Verified 02/19/18 14:55 venlafaxine HCl AdvReac Nausea Verified 02/19/18 14:55 [From Effexor] Home Meds: Home Meds Docusate Sodium [Colace] 200 mg PO BID PRN 04/14/13 [History] Dorzolamide HCl [Trusopt] 1 drop EYEBOTH BID 04/14/13 [History] Folic Acid/Vitamin B Comp W-C [Nephrocaps Softgel] 1 mg PO DAILY 04/14/13 [ History] Levothyroxine [Synthroid] 75 mcg PO ACBRK 04/14/13 [History] Multivitamin [Multi-Vitamin Daily] 1 each PO DAILY 04/14/13 [History] Niacin [Niaspan] 500 mg PO BID 04/14/13 [History] Potassium Chloride [Klor-Con M20] 20 meq PO DAILY 04/14/13 [History] Simvastatin [Zocor] 20 mg PO BEDTIME 04/14/13 [History] predniSONE [Prednisone] 5 mg PO DAILY 04/14/13 [History] Folic Acid 1 mg PO DAILY 01/18/14 [History] Cholecalciferol (Vitamin D3) [Vitamin D3] 1,000 unit PO DAILY 04/15/14 [History] Furosemide [Lasix] 40 mg PO BID 06/03/14 [History] Calcium Carbonate/Vitamin D3 [Calcium 600 + Vit D 400 Softgl] 1 cap PO BID 03/29 [History] Ferrous Sulfate 325 mg PO DAILY 03/29/15 [History] Omeprazole 40 mg PO QAM 03/29/15 [History] Metoprolol Succinate [Toprol XL] 50 mg PO DAILY #90 tab.er 06/07/16 [Rx] dilTIAZem HCl [Diltiazem 24Hr ER] 300 mg PO BEDTIME #90 cap.er.24h 06/07/16 [Rx] Digoxin 1 tab PO Q48H 08/13/16 [History] Tolterodine Tartrate 1 mg PO BID 11/18/16 [History] tiZANidine [Zanaflex] 1 tab PO Q8H PRN 11/18/16 [History] Warfarin [Coumadin] 2.5 mg PO ASDIRECTED #0 11/20/16 [Rx] methylPREDNISolone [Medrol] 4 mg PO ASDIRECTED #8 tablet 11/20/16 [Rx] Acetaminophen [Tylenol Extra Strength] 1,000 mg PO Q8H PRN 02/19/18 [History] Acetaminophen/HYDROcodone [Hilbert 325-10 MG] 1 tab PO Q4HR PRN 02/19/18 [History] Latanoprost/Pf [Latanoprost 0.005% Eye Drop] 1 drop OP ASDIRECTED 02/19/18 [ History] Methotrexate 7.5 mg PO Q7D 02/19/18 [History] Nebivolol HCl [Bystolic] 10 mg PO BID 02/19/18 [History] Ondansetron HCl [Zofran] 4 mg PO Q6HR PRN 02/19/18 [History] Warfarin [Coumadin] 1.5 mg PO ASDIRECTED 02/19/18 [History] Past Medical History HEENT History: Reports: Cataract, Glaucoma, Hard of Hearing, Impaired Vision Cardiovascular History: Reports: Afib, Arrhythmia, Blood Clots/VTE/DVT, Heart Murmur, High Cholesterol, Hypertension, Pacemaker Respiratory History: Reports: Pneumonia, Recurrent Gastrointestinal History: Reports: Chronic Constipation, GERD Genitourinary History: Reports: Renal Disease, UTI, Recurrent [employer] History: Reports: Musculoskeletal History: Reports: Amputation, Arthritis, Fracture Psychiatric History: Reports: Anxiety Endocrine/Metabolic History: Reports: Hypothyroidism Hematologic History: Reports: Blood Transfusion(s) Oncologic (Cancer) History: Reports: Basal Cell Carcinoma Dermatologic History: Reports: None - Infectious Disease History Infectious Disease History: Reports: Chicken Pox, Measles - Past Surgical History Head Surgeries/Procedures: Reports: None HEENT Surgical History: Reports: Cataract Surgery GI Surgical History: Reports: Colonoscopy, Colostomy, Rae Fundoplication, Small Bowel Endocrine Surgical History: Reports: None Musculoskeletal Surgical History: Reports: Amputation, Carpal Tunnel, Knee Replacement Dermatological Surgical History: Reports: Skin Biopsy Social & Family History - Family History Family Medical History: Noncontributory - Tobacco Use Smoking Status *Q: Unknown Ever Smoked Second Hand Smoke Exposure: No - Caffeine Use Caffeine Use: Reports: None Other Caffeine Use: rarely - Recreational Drug Use Recreational Drug Use: No - Living Situation & Occupation Living situation: Reports: , with Spouse Occupation: Retired ED ROS GENERAL - Review of Systems Review Of Systems: See Below Constitutional: Reports: Malaise, Weakness, Decreased Appetite HEENT: Reports: No Symptoms Respiratory: Reports: No Symptoms Cardiovascular: Reports: No Symptoms Endocrine: Reports: No Symptoms GI/Abdominal: Reports: Decreased Appetite, Nausea, Vomiting : Reports: No Symptoms Musculoskeletal: Reports: No Symptoms Skin: Reports: No Symptoms ED EXAM, GI/ABD - Physical Exam Exam: See Below Text/Narrative:: pt gives a history of nausea and vomiting. She is not getting much down She has a large ulcer on her rt leg which Dr Morales saw and made reccommendations on. Exam Limited By: Intoxication General Appearance: Alert, Mild Distress Ears: Normal TMs Nose: Normal Inspection Throat/Mouth: Normal Inspection Head: Atraumatic Neck: Normal Inspection Respiratory/Chest: No Respiratory Distress Cardiovascular: Regular Rate, Rhythm GI/Abdominal Exam: Other (diffuse lower abdomanal tenderness) (Female) Exam: Deferred Rectal (Female) Exam: Deferred Back Exam: Normal Inspection Extremities: Other (large ulcer on the rt leg. ) Neurological: Alert, Oriented, Other (pt is very hard of hearing. ) Course - Vital Signs Last Recorded V/S: Last Vital Signs Temp 36.9 C 02/19/18 14:42 Pulse 105 H 02/19/18 17:07 Resp 16 02/19/18 14:42 BP 144/87 H 02/19/18 17:07 Pulse Ox 95 02/19/18 17:07 - Orders/Labs/Meds Orders: Active Orders 24 hr Category Date Time Status CULTURE URINE [RM] Stat Lab 02/19/18 17:19 Received Sodium Chloride 0.9% [Normal Saline] 1,000 ml Med 02/19/18 17:15 Active IV ASDIRECTED Medication Orders Sodium Chloride (Normal Saline) 1,000 mls @ 500 mls/hr IV ASDIRECTED ALICIA Last Admin: 02/19/18 17:25 Dose: 500 mls/hr Labs: Laboratory Tests 02/19/18 02/19/18 02/19/18 Range/Units 15:25 15:25 15:25 WBC 10.0 (4.5-11.0) K/uL RBC 4.09 (3.30-5.50) M/uL Hgb 11.9 L (12.0-15.0) g/dL Hct 37.7 (36.0-48.0) % MCV 92 (80-98) fL MCH 29 (27-31) pg MCHC 32 (32-36) % Plt Count 502 H (150-400) K/uL Neut % (Auto) 76 H (36-66) % Lymph % (Auto) 15 L (24-44) % [place] % (Auto) 4 (2-6) % Eos % (Auto) 4 (2-4) % Baso % (Auto) 0 (0-1) % PT (9.5-12.0) sec INR (0.80-1.20) Sodium 138 L (140-148) mmol/L Potassium 4.6 (3.6-5.2) mmol/L Chloride 108 (100-108) mmol/L Carbon Dioxide 19 L (21-32) mmol/L Anion Gap 15.6 H (5.0-14.0) mmol/L BUN 20 H (7-18) mg/dL Creatinine 1.1 H (0.6-1.0) mg/dL Est Cr Clr Drug Dosing 26.37 mL/min Estimated GFR (MDRD) 47 L (>60) Glucose 90 (74-106) mg/dL Lactic Acid (0.4-2.0) mmol/L Calcium 8.7 (8.5-10.1) mg/dL Total Bilirubin 0.3 (0.2-1.0) mg/dL AST 16 (15-37) U/L ALT 13 (12-78) U/L Alkaline Phosphatase 72 (46-116) U/L Total Protein 7.4 (6.4-8.2) g/dL Albumin 2.4 L (3.4-5.0) g/dL Globulin 5.0 H (2.3-3.5) g/dL Albumin/Globulin Ratio 0.5 L (1.2-2.2) TSH, Ultra Sensitive (0.358-3.740) uIU/mL Urine Color Cancelled Urine Appearance Cancelled Urine pH Cancelled Ur Specific [place] Cancelled Urine Protein Cancelled Urine Glucose (UA) Cancelled Urine Ketones Cancelled Urine Occult Blood Cancelled Urine Nitrite Cancelled Urine Bilirubin Cancelled Urine Urobilinogen Cancelled Ur Leukocyte Esterase Cancelled Urine RBC Cancelled Urine WBC Cancelled Ur Epithelial Cells Cancelled Amorphous Sediment Cancelled Urine Bacteria Cancelled Urine Mucus Cancelled Urine Other Cancelled Urinalysis Comment Cancelled Digoxin (0.90-2.00) ng/mL 02/19/18 02/19/18 02/19/18 Range/Units 15:46 15:47 15:49 WBC (4.5-11.0) K/uL RBC (3.30-5.50) M/uL Hgb (12.0-15.0) g/dL Hct (36.0-48.0) % MCV (80-98) fL MCH (27-31) pg MCHC (32-36) % Plt Count (150-400) K/uL Neut % (Auto) (36-66) % Lymph % (Auto) (24-44) % [place] % (Auto) (2-6) % Eos % (Auto) (2-4) % Baso % (Auto) (0-1) % PT 49.3 H (9.5-12.0) sec INR 4.90 H* (0.80-1.20) Sodium (140-148) mmol/L Potassium (3.6-5.2) mmol/L Chloride (100-108) mmol/L Carbon Dioxide (21-32) mmol/L Anion Gap (5.0-14.0) mmol/L BUN (7-18) mg/dL Creatinine (0.6-1.0) mg/dL Est Cr Clr Drug Dosing mL/min Estimated GFR (MDRD) (>60) Glucose (74-106) mg/dL Lactic Acid (0.4-2.0) mmol/L Calcium (8.5-10.1) mg/dL Total Bilirubin (0.2-1.0) mg/dL AST (15-37) U/L ALT (12-78) U/L Alkaline Phosphatase (46-116) U/L Total Protein (6.4-8.2) g/dL Albumin (3.4-5.0) g/dL Globulin (2.3-3.5) g/dL Albumin/Globulin Ratio (1.2-2.2) TSH, Ultra Sensitive 2.450 (0.358-3.740) uIU/mL Urine Color Urine Appearance Urine pH Ur Specific [place] Urine Protein Urine Glucose (UA) Urine Ketones Urine Occult Blood Urine Nitrite Urine Bilirubin Urine Urobilinogen Ur Leukocyte Esterase Urine RBC Urine WBC Ur Epithelial Cells Amorphous Sediment Urine Bacteria Urine Mucus Urine Other Urinalysis Comment Digoxin 0.53 L (0.90-2.00) ng/mL 02/19/18 02/19/18 Range/Units 16:54 16:55 WBC (4.5-11.0) K/uL RBC (3.30-5.50) M/uL Hgb (12.0-15.0) g/dL Hct (36.0-48.0) % MCV (80-98) fL MCH (27-31) pg MCHC (32-36) % Plt Count (150-400) K/uL Neut % (Auto) (36-66) % Lymph % (Auto) (24-44) % [place] % (Auto) (2-6) % Eos % (Auto) (2-4) % Baso % (Auto) (0-1) % PT (9.5-12.0) sec INR (0.80-1.20) Sodium (140-148) mmol/L Potassium (3.6-5.2) mmol/L Chloride (100-108) mmol/L Carbon Dioxide (21-32) mmol/L Anion Gap (5.0-14.0) mmol/L BUN (7-18) mg/dL Creatinine (0.6-1.0) mg/dL Est Cr Clr Drug Dosing mL/min Estimated GFR (MDRD) (>60) Glucose (74-106) mg/dL Lactic Acid 2.0 (0.4-2.0) mmol/L Calcium (8.5-10.1) mg/dL Total Bilirubin (0.2-1.0) mg/dL AST (15-37) U/L ALT (12-78) U/L Alkaline Phosphatase (46-116) U/L Total Protein (6.4-8.2) g/dL Albumin (3.4-5.0) g/dL Globulin (2.3-3.5) g/dL Albumin/Globulin Ratio (1.2-2.2) TSH, Ultra Sensitive (0.358-3.740) uIU/mL Urine Color Brown Urine Appearance Turbid Urine pH 5.0 Ur Specific [place] 1.015 Urine Protein 100 H Urine Glucose (UA) Normal Urine Ketones 15 H Urine Occult Blood Large Urine Nitrite Positive H Urine Bilirubin Negative Urine Urobilinogen Normal Ur Leukocyte Esterase Large Urine RBC Semi-packed H Urine WBC Packed H Ur Epithelial Cells Moderate Amorphous Sediment Few Urine Bacteria Moderate Urine Mucus Few Urine Other Urinalysis Comment Digoxin (0.90-2.00) ng/mL Meds: Medications Generic Name Dose Route Start Last Admin Trade Name Freq PRN Reason Stop Dose Admin Sodium Chloride 1,000 mls @ 500 mls/hr 02/19/18 17:15 02/19/18 17:25 Normal Saline IV 500 mls/hr ASDIRECTED ALICIA Administration Discontinued Medications Generic Name Dose Route Start Last Admin Trade Name Freq PRN Reason Stop Dose Admin Lidocaine HCl 0 ml 02/19/18 16:00 02/19/18 16:24 Xylocaine 2% Jelly .XX 02/19/18 16:01 30 ml ONETIME ONE Administration - Re-Assessments/Exams Free Text/Narrative Re-Assessment/Exam: 02/19/18 17:32 urine looked like pus. Her micro shows a very infected urine. The pt is mildly dehydrated. Departure - Departure Time of Disposition: 17:33 Disposition: Admitted As Inpatient 67 Condition: Fair Clinical Impression: UTI (urinary tract infection), Dehydration, Elevated INR - Discharge Information Referrals: Cooper Trujillo MD [Primary Care Provider] - Forms: ED Department Discharge Care Plan Goals: admit to Dr Laird. - My Orders Last 24 Hours: My Active Orders 02/19/18 17:15 Sodium Chloride 0.9% [Normal Saline] 1,000 ml IV ASDIRECTED 02/19/18 17:19 CULTURE URINE [RM] Stat - Assessment/Plan Last 24 Hours: My Active Orders 02/19/18 17:15 Sodium Chloride 0.9% [Normal Saline] 1,000 ml IV ASDIRECTED 02/19/18 17:19 CULTURE URINE [RM] Stat
[2018-02-19] MEDS ORDERED: Lidocaine 2% Jelly 30 ML Tube ONE (16:00)
[2018-02-19] MEDS ORDERED: Sodium Chloride 0.9% 1,000 ML IV SCH (17:15)
[2018-02-19] MEDS: cefTRIAXone 1 GM in Sodium Chloride 0.9% 50 ML IV SCH (17:46)
--- NOTE | 2018-02-19 18:06 | PCM.HP ---
H&P History of Present Illness - General Date of Service: 02/19/18 Admit Problem/Dx: Admission Diagnosis/Problem Admission Diagnosis/Problem Cystitis Source of Information: Provider, RN Notes Reviewed History Limitations: Reports: Altered Mental Status, Other - History of Present Illness Initial Comments - Free Text/Narative: Ms. carbone is an 87-year-old woman who is admitted through the emergency department with progressive weakness, nausea, vomiting secondary to underlying severe cystitis. She has had ongoing difficulty with an ulcer on her right lower leg and has been followed on a regular basis by Dr. Morales. Over the past week has had progressive weakness decrease in appetite with nausea and vomiting. On evaluation in the emergency department her urine shows evidence of significant infection, packed WBCs with positive leukocyte esterase and nitrites. Because of dementia and marked hearing impairment Ms. carbone is unable to provide significant information concerning recent symptoms or review of systems. - Related Data Allergies/Adverse Reactions: Allergies Allergy/AdvReac Type Severity Reaction Status Date / Time celecoxib [From Celebrex] AdvReac Nausea Verified 02/19/18 14:55 leflunomide [From Arava] AdvReac Diarrhea Verified 02/19/18 14:55 venlafaxine HCl AdvReac Nausea Verified 02/19/18 14:55 [From Effexor] Home Medications: Home Meds Docusate Sodium [Colace] 200 mg PO BID PRN 04/14/13 [History] Dorzolamide HCl [Trusopt] 1 drop EYEBOTH BID 04/14/13 [History] Folic Acid/Vitamin B Comp W-C [Nephrocaps Softgel] 1 mg PO DAILY 04/14/13 [ History] Levothyroxine [Synthroid] 75 mcg PO ACBRK 04/14/13 [History] Multivitamin [Multi-Vitamin Daily] 1 each PO DAILY 04/14/13 [History] Niacin [Niaspan] 500 mg PO BID 04/14/13 [History] Potassium Chloride [Klor-Con M20] 20 meq PO DAILY 04/14/13 [History] Simvastatin [Zocor] 20 mg PO BEDTIME 04/14/13 [History] predniSONE [Prednisone] 5 mg PO DAILY 04/14/13 [History] Folic Acid 1 mg PO DAILY 01/18/14 [History] Cholecalciferol (Vitamin D3) [Vitamin D3] 1,000 unit PO DAILY 04/15/14 [History] Furosemide [Lasix] 40 mg PO BID 06/03/14 [History] Calcium Carbonate/Vitamin D3 [Calcium 600 + Vit D 400 Softgl] 1 cap PO BID 03/29 [History] Ferrous Sulfate 325 mg PO DAILY 03/29/15 [History] Omeprazole 40 mg PO QAM 03/29/15 [History] Metoprolol Succinate [Toprol XL] 50 mg PO DAILY #90 tab.er 06/07/16 [Rx] dilTIAZem HCl [Diltiazem 24Hr ER] 300 mg PO BEDTIME #90 cap.er.24h 06/07/16 [Rx] Digoxin 1 tab PO Q48H 08/13/16 [History] Tolterodine Tartrate 1 mg PO BID 11/18/16 [History] tiZANidine [Zanaflex] 1 tab PO Q8H PRN 11/18/16 [History] Warfarin [Coumadin] 2.5 mg PO ASDIRECTED #0 11/20/16 [Rx] methylPREDNISolone [Medrol] 4 mg PO ASDIRECTED #8 tablet 11/20/16 [Rx] Acetaminophen [Tylenol Extra Strength] 1,000 mg PO Q8H PRN 02/19/18 [History] Acetaminophen/HYDROcodone [[place] 325-10 MG] 1 tab PO Q4HR PRN 02/19/18 [History] Latanoprost/Pf [Latanoprost 0.005% Eye Drop] 1 drop OP ASDIRECTED 02/19/18 [ History] Methotrexate 7.5 mg PO Q7D 02/19/18 [History] Nebivolol HCl [Bystolic] 10 mg PO BID 02/19/18 [History] Ondansetron HCl [Zofran] 4 mg PO Q6HR PRN 02/19/18 [History] Warfarin [Coumadin] 1.5 mg PO ASDIRECTED 02/19/18 [History] Past Medical History HEENT History: Reports: Cataract, Glaucoma, Hard of Hearing, Impaired Vision Cardiovascular History: Reports: Afib, Arrhythmia, Blood Clots/VTE/DVT, Heart Murmur, High Cholesterol, Hypertension, Pacemaker Respiratory History: Reports: Pneumonia, Recurrent Gastrointestinal History: Reports: Chronic Constipation, GERD Genitourinary History: Reports: Renal Disease, UTI, Recurrent [employer] History: Reports: Musculoskeletal History: Reports: Amputation, Arthritis, Fracture Psychiatric History: Reports: Anxiety Endocrine/Metabolic History: Reports: Hypothyroidism Hematologic History: Reports: Blood Transfusion(s) Oncologic (Cancer) History: Reports: Basal Cell Carcinoma Dermatologic History: Reports: None - Infectious Disease History Infectious Disease History: Reports: Chicken Pox, Measles - Past Surgical History Head Surgeries/Procedures: Reports: None HEENT Surgical History: Reports: Cataract Surgery GI Surgical History: Reports: Colonoscopy, Colostomy, Rae Fundoplication, Small Bowel Endocrine Surgical History: Reports: None Musculoskeletal Surgical History: Reports: Amputation, Carpal Tunnel, Knee Replacement Dermatological Surgical History: Reports: Skin Biopsy Social & Family History - Family History Family Medical History: Noncontributory - Tobacco Use Smoking Status *Q: Unknown Ever Smoked Second Hand Smoke Exposure: No - Caffeine Use Caffeine Use: Reports: None Other Caffeine Use: rarely - Recreational Drug Use Recreational Drug Use: No - Living Situation & Occupation Living situation: Reports: , with Spouse Occupation: Retired H&P Review of Systems - Review of Systems: Review Of Systems: Unable To Obtain General: Reports: ROS unobtainable (Secondary to dementia and severe hearing impairment) Exam - Exam Exam: See Below - Vital Signs Vital Signs: Last Vital Signs Temp 98.4 F 02/19/18 14:42 Pulse 105 H 02/19/18 17:07 Resp 16 02/19/18 14:42 BP 144/87 H 02/19/18 17:07 Pulse Ox 95 02/19/18 17:07 Weight: 130 lb 1.164 oz - Exam Quality Assessment: DVT Prophylaxis General: Alert, Cooperative, Mild Distress HEENT: Conjunctiva Clear, Normal Nasal Septum, Posterior Pharynx Clear, Pupils Equal. No: Hearing Intact, Mucosa Moist & [place] Neck: Supple, Trachea Midline, +2 Carotid Pulse wo Bruit Lungs: Clear to Auscultation, Normal Respiratory Effort Cardiovascular: Regular Rate, Regular Rhythm, Normal S1, Normal S2, Systolic Murmur. No: Diastolic Murmur GI/Abdominal Exam: Soft, Non-Tender, No Organomegaly, No Distention, Other ( Ostomy bag) Extremities: Pedal Edema, Slow Capillary Refill, Other (Status post partial amputation right foot, dressing in place over lower leg ulcer) Skin: Warm, Dry, Wound (Right lower leg) Neuro Extensive - Mental Status: Alert, Memory Loss-Remote Events, Memory Loss- Recent Events - Patient Data Lab Results Last 24 hrs: Laboratory Results - last 24 hr 02/19/18 02/19/18 02/19/18 Range/Units 15:25 15:25 15:25 WBC 10.0 (4.5-11.0) K/uL RBC 4.09 (3.30-5.50) M/uL Hgb 11.9 L (12.0-15.0) g/dL Hct 37.7 (36.0-48.0) % MCV 92 (80-98) fL MCH 29 (27-31) pg MCHC 32 (32-36) % Plt Count 502 H (150-400) K/uL Neut % (Auto) 76 H (36-66) % Lymph % (Auto) 15 L (24-44) % [place] % (Auto) 4 (2-6) % Eos % (Auto) 4 (2-4) % Baso % (Auto) 0 (0-1) % PT (9.5-12.0) sec INR (0.80-1.20) Sodium 138 L (140-148) mmol/L Potassium 4.6 (3.6-5.2) mmol/L Chloride 108 (100-108) mmol/L Carbon Dioxide 19 L (21-32) mmol/L Anion Gap 15.6 H (5.0-14.0) mmol/L BUN 20 H (7-18) mg/dL Creatinine 1.1 H (0.6-1.0) mg/dL Est Cr Clr Drug Dosing 26.37 mL/min Estimated GFR (MDRD) 47 L (>60) Glucose 90 (74-106) mg/dL Lactic Acid (0.4-2.0) mmol/L Calcium 8.7 (8.5-10.1) mg/dL Total Bilirubin 0.3 (0.2-1.0) mg/dL AST 16 (15-37) U/L ALT 13 (12-78) U/L Alkaline Phosphatase 72 (46-116) U/L Total Protein 7.4 (6.4-8.2) g/dL Albumin 2.4 L (3.4-5.0) g/dL Globulin 5.0 H (2.3-3.5) g/dL Albumin/Globulin Ratio 0.5 L (1.2-2.2) TSH, Ultra Sensitive (0.358-3.740) uIU/mL Urine Color Cancelled Urine Appearance Cancelled Urine pH Cancelled Ur Specific [place] Cancelled Urine Protein Cancelled Urine Glucose (UA) Cancelled Urine Ketones Cancelled Urine Occult Blood Cancelled Urine Nitrite Cancelled Urine Bilirubin Cancelled Urine Urobilinogen Cancelled Ur Leukocyte Esterase Cancelled Urine RBC Cancelled Urine WBC Cancelled Ur Epithelial Cells Cancelled Amorphous Sediment Cancelled Urine Bacteria Cancelled Urine Mucus Cancelled Urine Other Cancelled Urinalysis Comment Cancelled Digoxin (0.90-2.00) ng/mL 02/19/18 02/19/18 02/19/18 Range/Units 15:46 15:47 15:49 WBC (4.5-11.0) K/uL RBC (3.30-5.50) M/uL Hgb (12.0-15.0) g/dL Hct (36.0-48.0) % MCV (80-98) fL MCH (27-31) pg MCHC (32-36) % Plt Count (150-400) K/uL Neut % (Auto) (36-66) % Lymph % (Auto) (24-44) % [place] % (Auto) (2-6) % Eos % (Auto) (2-4) % Baso % (Auto) (0-1) % PT 49.3 H (9.5-12.0) sec INR 4.90 H* (0.80-1.20) Sodium (140-148) mmol/L Potassium (3.6-5.2) mmol/L Chloride (100-108) mmol/L Carbon Dioxide (21-32) mmol/L Anion Gap (5.0-14.0) mmol/L BUN (7-18) mg/dL Creatinine (0.6-1.0) mg/dL Est Cr Clr Drug Dosing mL/min Estimated GFR (MDRD) (>60) Glucose (74-106) mg/dL Lactic Acid (0.4-2.0) mmol/L Calcium (8.5-10.1) mg/dL Total Bilirubin (0.2-1.0) mg/dL AST (15-37) U/L ALT (12-78) U/L Alkaline Phosphatase (46-116) U/L Total Protein (6.4-8.2) g/dL Albumin (3.4-5.0) g/dL Globulin (2.3-3.5) g/dL Albumin/Globulin Ratio (1.2-2.2) TSH, Ultra Sensitive 2.450 (0.358-3.740) uIU/mL Urine Color Urine Appearance Urine pH Ur Specific [place] Urine Protein Urine Glucose (UA) Urine Ketones Urine Occult Blood Urine Nitrite Urine Bilirubin Urine Urobilinogen Ur Leukocyte Esterase Urine RBC Urine WBC Ur Epithelial Cells Amorphous Sediment Urine Bacteria Urine Mucus Urine Other Urinalysis Comment Digoxin 0.53 L (0.90-2.00) ng/mL 02/19/18 02/19/18 Range/Units 16:54 16:55 WBC (4.5-11.0) K/uL RBC (3.30-5.50) M/uL Hgb (12.0-15.0) g/dL Hct (36.0-48.0) % MCV (80-98) fL MCH (27-31) pg MCHC (32-36) % Plt Count (150-400) K/uL Neut % (Auto) (36-66) % Lymph % (Auto) (24-44) % [place] % (Auto) (2-6) % Eos % (Auto) (2-4) % Baso % (Auto) (0-1) % PT (9.5-12.0) sec INR (0.80-1.20) Sodium (140-148) mmol/L Potassium (3.6-5.2) mmol/L Chloride (100-108) mmol/L Carbon Dioxide (21-32) mmol/L Anion Gap (5.0-14.0) mmol/L BUN (7-18) mg/dL Creatinine (0.6-1.0) mg/dL Est Cr Clr Drug Dosing mL/min Estimated GFR (MDRD) (>60) Glucose (74-106) mg/dL Lactic Acid 2.0 (0.4-2.0) mmol/L Calcium (8.5-10.1) mg/dL Total Bilirubin (0.2-1.0) mg/dL AST (15-37) U/L ALT (12-78) U/L Alkaline Phosphatase (46-116) U/L Total Protein (6.4-8.2) g/dL Albumin (3.4-5.0) g/dL Globulin (2.3-3.5) g/dL Albumin/Globulin Ratio (1.2-2.2) TSH, Ultra Sensitive (0.358-3.740) uIU/mL Urine Color Brown Urine Appearance Turbid Urine pH 5.0 Ur Specific [place] 1.015 Urine Protein 100 H Urine Glucose (UA) Normal Urine Ketones 15 H Urine Occult Blood Large Urine Nitrite Positive H Urine Bilirubin Negative Urine Urobilinogen Normal Ur Leukocyte Esterase Large Urine RBC Semi-packed H Urine WBC Packed H Ur Epithelial Cells Moderate Amorphous Sediment Few Urine Bacteria Moderate Urine Mucus Few Urine Other Urinalysis Comment Digoxin (0.90-2.00) ng/mL Result Diagrams: 02/19/18 15:25 02/19/18 15:25 *Q Meaningful Use (ADM) - VTE *Q VTE Pharmacological Contraindications *Q: High INR Value - VTE Risk Assess *Q Each Risk Factor Represents 1 Point: None Total Score 1 Point Risk Factors: 0 Each Risk Factor Represents 2 Points: None Total Score 2 Point Risk Factors: 0 Each Risk Factor Represents 3 Points: Age 75 Years or Greater Total Score 3 Point Risk Factors: 3 Each Risk Factor Represents 5 Points: None Total Score 5 Point Risk Factors: 0 Venous Thromboembolism Risk Factor Score *Q: 3 Problem List Initiated/Reviewed/Updated: Yes Orders Last 24hrs: Active Orders 24 hr Category Date Time Status Patient Status Manage Transfer [TRANSFER] Routine ADT 02/19/18 17:31 Active CULTURE BLOOD [BC] Stat Lab 02/19/18 17:30 Received CULTURE BLOOD [BC] Stat Lab 02/19/18 17:30 Received CULTURE URINE [RM] Stat Lab 02/19/18 17:19 Received Sodium Chloride 0.9% [Normal Saline] 1,000 ml Med 02/19/18 17:15 Active IV ASDIRECTED cefTRIAXone [Rocephin] 1 gm Med 02/19/18 18:00 Active Sodium Chloride 0.9% [Normal Saline] 50 ml IV Q24H Blood Culture x2 Reflex Set [OM.PC] Urgent Oth 02/19/18 17:30 Ordered Resuscitation Status Routine Resus Stat 02/19/18 17:36 Ordered Medication Orders Sodium Chloride (Normal Saline) 1,000 mls @ 500 mls/hr IV ASDIRECTED [facility] Last Admin: 02/19/18 17:25 Dose: 500 mls/hr Ceftriaxone Sodium 1 gm/ (Sodium Chloride) 50 mls @ 100 mls/hr IV Q24H [facility] Last Admin: 02/19/18 17:46 Dose: 100 mls/hr Assessment/Plan Comment:: ASSESSMENT AND PLAN SEVERE CYSTITIS WITH EARLY SEPSIS-history of progressive weakness with nausea vomiting over the past week. On evaluation in the emergency department found to have evidence of severe cystitis on urinalysis -Urine culture and blood cultures pending -IV fluids for hydration and management of sepsis -Rocephin 1 g IV every 24 hours pending culture results RIGHT LOWER LEG ULCER -Ongoing management per Dr. Morales CHRONIC KIDNEY DISEASE STAGE III -Closely monitor urine output and renal function MAINTENANCE ISSUES -DVT prophylaxis; current therapy with warfarin should provide adequate DVT prophylaxis -GI prophylaxis; continue outpatient PPI therapy -Rai catheter; not indicated -Nutrition; 2 g sodium diet -Nicotine dependence; not required CODE STATUS-FULL CODE ADMISSION STATUS-patient will be admitted to inpatient status, expect at least a 2 night hospital stay for evaluation and management of problems as outlined above. At the time of this admission I do not reasonably expected evaluation and management of this problem will require more than a 96 hour hospital stay. DISPOSITION-anticipate discharge to home after the hospital stay. PRIMARY CARE PROVIDER-Dr. Trujillo
[2018-02-19] MEDS ORDERED: Magnesium Hydroxide 400 MG/5 ML Susp 30 ML Cup PO PRN (18:30)
[2018-02-19] MEDS ORDERED: Polyethylene Glycol 3350 Powder 17 GM Packet PO PRN (18:30)
[2018-02-19] MEDS ORDERED: Acetaminophen 325 MG Tab PO PRN (18:30)
[2018-02-19] MEDS ORDERED: Albuterol 0.083% 2.5 MG/3 ML Neb Soln NEB PRN (18:30)
[2018-02-19] MEDS ORDERED: Ondansetron 4 MG/2 ML SDV IV PRN (18:30)
[2018-02-19] MEDS ORDERED: Sodium Chloride 0.9% 10 ML Syringe FLUSH PRN (18:30)
[2018-02-19] MEDS ORDERED: Digoxin 125 MCG Tab PO SCH (18:30)
[2018-02-19] MEDS ORDERED: Simvastatin 20 MG Tab PO SCH (21:00)
[2018-02-20] MEDS: Sodium Chloride 0.9% 1,000 ML IV SCH ×2 (00:02→10:53)
[2018-02-20] MEDS: Dorzolamide 2% Ophth Soln 10 ML Bottle EYEBOTH SCH ×4 (02:41→21:48)
[2018-02-20] MEDS ORDERED: Levothyroxine 50 MCG Tab PO SCH (07:30)
[2018-02-20] MEDS: Acetaminophen/HYDROcodone 325-5 MG Tab PO PRN ×3 (07:56→21:49)
[2018-02-20] MEDS ORDERED: Furosemide 20 MG Tab PO SCH (08:00)
[2018-02-20] MEDS ORDERED: Furosemide 40 MG Tab PO SCH (08:00)
[2018-02-20] MEDS: predniSONE 5 MG Tab PO SCH (08:29)
[2018-02-20] MEDS: Potassium Chloride 20 MEQ Tab.ER PO SCH (08:30)
[2018-02-20] MEDS: Pantoprazole 40 MG Tab.CR PO SCH (08:30)
[2018-02-20] MEDS: Levothyroxine 25 MCG, Levothyroxine 50 MCG PO SCH ×2 (08:31)
[2018-02-20] MEDS ORDERED: Ferrous Sulfate 325 MG Tab PO SCH (09:00)
[2018-02-20] MEDS ORDERED: predniSONE 10 MG Tab PO SCH (09:00)
[2018-02-20] MEDS ORDERED: Tolterodine 2 MG Tab PO SCH (09:00)
[2018-02-20] MEDS ORDERED: Metoprolol Succinate 50 MG Tab.ER PO SCH (09:00)
[2018-02-20] MEDS ORDERED: Digoxin 125 MCG Tab PO SCH (13:00)
--- NOTE | 2018-02-20 15:22 | PCM.PN ---
- General Info Date of Service: 02/20/18 Subjective Update: Ms. Oreilly has been stable since admission yesterday, afebrile and hemodynamically stable. Denies significant pain. Medication is very difficult because of her severe hearing impairment. Because of this she is unable to provide significant information concerning symptoms or review of systems. - Patient Data Vitals - Most Recent: Last Vital Signs Temp 99.1 F 02/20/18 13:44 Pulse 105 H 02/20/18 13:44 Resp 18 02/20/18 13:44 BP 132/86 02/20/18 13:44 Pulse Ox 96 02/20/18 13:44 Weight - Most Recent: 136 lb I&O - Last 24 Hours: Intake & Output 02/20/18 02/20/18 02/20/18 06:59 14:59 22:59 Intake Total 1254 600 Output Total 100 100 Balance 1154 500 Lab Results Last 24 Hours: Laboratory Results - last 24 hr 02/19/18 02/19/18 02/19/18 Range/Units 15:25 15:25 15:25 WBC 10.0 (4.5-11.0) K/uL RBC 4.09 (3.30-5.50) M/uL Hgb 11.9 L (12.0-15.0) g/dL Hct 37.7 (36.0-48.0) % MCV 92 (80-98) fL MCH 29 (27-31) pg MCHC 32 (32-36) % Plt Count 502 H (150-400) K/uL Neut % (Auto) 76 H (36-66) % Lymph % (Auto) 15 L (24-44) % [place] % (Auto) 4 (2-6) % Eos % (Auto) 4 (2-4) % Baso % (Auto) 0 (0-1) % PT (9.5-12.0) sec INR (0.80-1.20) Sodium 138 L (140-148) mmol/L Potassium 4.6 (3.6-5.2) mmol/L Chloride 108 (100-108) mmol/L Carbon Dioxide 19 L (21-32) mmol/L Anion Gap 15.6 H (5.0-14.0) mmol/L BUN 20 H (7-18) mg/dL Creatinine 1.1 H (0.6-1.0) mg/dL Est Cr Clr Drug Dosing 26.37 mL/min Estimated GFR (MDRD) 47 L (>60) Glucose 90 (74-106) mg/dL Lactic Acid (0.4-2.0) mmol/L Calcium 8.7 (8.5-10.1) mg/dL Magnesium (1.8-2.4) mg/dL Total Bilirubin 0.3 (0.2-1.0) mg/dL AST 16 (15-37) U/L ALT 13 (12-78) U/L Alkaline Phosphatase 72 (46-116) U/L Total Protein 7.4 (6.4-8.2) g/dL Albumin 2.4 L (3.4-5.0) g/dL Globulin 5.0 H (2.3-3.5) g/dL Albumin/Globulin Ratio 0.5 L (1.2-2.2) TSH, Ultra Sensitive (0.358-3.740) uIU/mL Urine Color Cancelled Urine Appearance Cancelled Urine pH Cancelled Ur Specific [place] Cancelled Urine Protein Cancelled Urine Glucose (UA) Cancelled Urine Ketones Cancelled Urine Occult Blood Cancelled Urine Nitrite Cancelled Urine Bilirubin Cancelled Urine Urobilinogen Cancelled Ur Leukocyte Esterase Cancelled Urine RBC Cancelled Urine WBC Cancelled Ur Epithelial Cells Cancelled Amorphous Sediment Cancelled Urine Bacteria Cancelled Urine Mucus Cancelled Urine Other Cancelled Urinalysis Comment Cancelled Digoxin (0.90-2.00) ng/mL 02/19/18 02/19/18 02/19/18 Range/Units 15:46 15:47 15:49 WBC (4.5-11.0) K/uL RBC (3.30-5.50) M/uL Hgb (12.0-15.0) g/dL Hct (36.0-48.0) % MCV (80-98) fL MCH (27-31) pg MCHC (32-36) % Plt Count (150-400) K/uL Neut % (Auto) (36-66) % Lymph % (Auto) (24-44) % [place] % (Auto) (2-6) % Eos % (Auto) (2-4) % Baso % (Auto) (0-1) % PT 49.3 H (9.5-12.0) sec INR 4.90 H* (0.80-1.20) Sodium (140-148) mmol/L Potassium (3.6-5.2) mmol/L Chloride (100-108) mmol/L Carbon Dioxide (21-32) mmol/L Anion Gap (5.0-14.0) mmol/L BUN (7-18) mg/dL Creatinine (0.6-1.0) mg/dL Est Cr Clr Drug Dosing mL/min Estimated GFR (MDRD) (>60) Glucose (74-106) mg/dL Lactic Acid (0.4-2.0) mmol/L Calcium (8.5-10.1) mg/dL Magnesium (1.8-2.4) mg/dL Total Bilirubin (0.2-1.0) mg/dL AST (15-37) U/L ALT (12-78) U/L Alkaline Phosphatase (46-116) U/L Total Protein (6.4-8.2) g/dL Albumin (3.4-5.0) g/dL Globulin (2.3-3.5) g/dL Albumin/Globulin Ratio (1.2-2.2) TSH, Ultra Sensitive 2.450 (0.358-3.740) uIU/mL Urine Color Urine Appearance Urine pH Ur Specific [place] Urine Protein Urine Glucose (UA) Urine Ketones Urine Occult Blood Urine Nitrite Urine Bilirubin Urine Urobilinogen Ur Leukocyte Esterase Urine RBC Urine WBC Ur Epithelial Cells Amorphous Sediment Urine Bacteria Urine Mucus Urine Other Urinalysis Comment Digoxin 0.53 L (0.90-2.00) ng/mL 02/19/18 02/19/18 02/20/18 Range/Units 16:54 16:55 05:50 WBC 7.5 (4.5-11.0) K/uL RBC 3.50 (3.30-5.50) M/uL Hgb 10.2 L (12.0-15.0) g/dL Hct 32.2 L (36.0-48.0) % MCV 92 (80-98) fL MCH 29 (27-31) pg MCHC 32 (32-36) % Plt Count 448 H (150-400) K/uL Neut % (Auto) 65 (36-66) % Lymph % (Auto) 17 L (24-44) % [place] % (Auto) 11 H (2-6) % Eos % (Auto) 7 H (2-4) % Baso % (Auto) 0 (0-1) % PT (9.5-12.0) sec INR (0.80-1.20) Sodium (140-148) mmol/L Potassium (3.6-5.2) mmol/L Chloride (100-108) mmol/L Carbon Dioxide (21-32) mmol/L Anion Gap (5.0-14.0) mmol/L BUN (7-18) mg/dL Creatinine (0.6-1.0) mg/dL Est Cr Clr Drug Dosing mL/min Estimated GFR (MDRD) (>60) Glucose (74-106) mg/dL Lactic Acid 2.0 (0.4-2.0) mmol/L Calcium (8.5-10.1) mg/dL Magnesium (1.8-2.4) mg/dL Total Bilirubin (0.2-1.0) mg/dL AST (15-37) U/L ALT (12-78) U/L Alkaline Phosphatase (46-116) U/L Total Protein (6.4-8.2) g/dL Albumin (3.4-5.0) g/dL Globulin (2.3-3.5) g/dL Albumin/Globulin Ratio (1.2-2.2) TSH, Ultra Sensitive (0.358-3.740) uIU/mL Urine Color Brown Urine Appearance Turbid Urine pH 5.0 Ur Specific [place] 1.015 Urine Protein 100 H Urine Glucose (UA) Normal Urine Ketones 15 H Urine Occult Blood Large Urine Nitrite Positive H Urine Bilirubin Negative Urine Urobilinogen Normal Ur Leukocyte Esterase Large Urine RBC Semi-packed H Urine WBC Packed H Ur Epithelial Cells Moderate Amorphous Sediment Few Urine Bacteria Moderate Urine Mucus Few Urine Other Urinalysis Comment Digoxin (0.90-2.00) ng/mL 02/20/18 02/20/18 Range/Units 05:50 05:50 WBC (4.5-11.0) K/uL RBC (3.30-5.50) M/uL Hgb (12.0-15.0) g/dL Hct (36.0-48.0) % MCV (80-98) fL MCH (27-31) pg MCHC (32-36) % Plt Count (150-400) K/uL Neut % (Auto) (36-66) % Lymph % (Auto) (24-44) % [place] % (Auto) (2-6) % Eos % (Auto) (2-4) % Baso % (Auto) (0-1) % PT 42.0 H (9.5-12.0) sec INR 4.14 H* (0.80-1.20) Sodium 142 (140-148) mmol/L Potassium 4.2 (3.6-5.2) mmol/L Chloride 111 H (100-108) mmol/L Carbon Dioxide 18 L (21-32) mmol/L Anion Gap 17.2 H (5.0-14.0) mmol/L BUN 14 (7-18) mg/dL Creatinine 1.0 (0.6-1.0) mg/dL Est Cr Clr Drug Dosing 29.01 mL/min Estimated GFR (MDRD) 53 L (>60) Glucose 72 L (74-106) mg/dL Lactic Acid (0.4-2.0) mmol/L Calcium 7.8 L (8.5-10.1) mg/dL Magnesium 1.8 (1.8-2.4) mg/dL Total Bilirubin (0.2-1.0) mg/dL AST (15-37) U/L ALT (12-78) U/L Alkaline Phosphatase (46-116) U/L Total Protein (6.4-8.2) g/dL Albumin (3.4-5.0) g/dL Globulin (2.3-3.5) g/dL Albumin/Globulin Ratio (1.2-2.2) TSH, Ultra Sensitive (0.358-3.740) uIU/mL Urine Color Urine Appearance Urine pH Ur Specific [place] Urine Protein Urine Glucose (UA) Urine Ketones Urine Occult Blood Urine Nitrite Urine Bilirubin Urine Urobilinogen Ur Leukocyte Esterase Urine RBC Urine WBC Ur Epithelial Cells Amorphous Sediment Urine Bacteria Urine Mucus Urine Other Urinalysis Comment Digoxin (0.90-2.00) ng/mL Tommy Results Last 24 Hours: Microbiology 02/19/18 17:19 Urine Culture - Preliminary Urine, Bladder Med Orders - Current: Current Medications Acetaminophen (Tylenol) 650 mg PO Q4H PRN PRN Reason: Pain (Mild 1-3)/fever Last Admin: 02/19/18 20:44 Dose: 650 mg Hydrocodone Bitart/Acetaminophen ([place] 325-5 Mg) 2 tab PO Q4H PRN PRN Reason: Pain (moderate 4-6) Last Admin: 02/20/18 13:41 Dose: 2 tab Albuterol (Proventil Neb Soln) 2.5 mg NEB Q4H PRN PRN Reason: Shortness Of Breath/wheezing Digoxin (Lanoxin) 125 mcg PO Q48H [facility] Last Admin: 02/20/18 13:42 Dose: 125 mcg Diltiazem HCl 120 mg/ (Diltiazem HCl 180 mg) 300 mg PO BEDTIME [facility] Dorzolamide HCl (Trusopt 2% Ophth Soln) 0 ml EYEBOTH TID [facility] Last Admin: 02/20/18 13:43 Dose: 1 drop Furosemide (Lasix) 40 mg PO DAILY [facility] Ceftriaxone Sodium 1 gm/ (Sodium Chloride) 50 mls @ 100 mls/hr IV Q24H [facility] Last Admin: 02/19/18 17:46 Dose: 100 mls/hr Latanoprost (Xalatan 0.005% Ophth Soln) 0 ml EYEBOTH BEDTIME [facility] Levothyroxine Sodium 25 mcg/ (Levothyroxine Sodium 50 mcg) 75 mcg PO ACBREAKFAST [facility] Last Admin: 02/20/18 08:31 Dose: 75 mcg Magnesium Hydroxide (Milk Of Magnesia) 30 ml PO Q12H PRN PRN Reason: Constipation Nebivolol (Bystolic) 10 mg PO BID [facility] Last Admin: 02/20/18 08:30 Dose: 10 mg Ondansetron HCl (Zofran) 4 mg IV Q4H PRN PRN Reason: Nausea/Vomiting Pantoprazole Sodium (Protonix) 40 mg PO ACBREAKFAST [facility] Last Admin: 02/20/18 08:30 Dose: 40 mg Polyethylene Glycol (Miralax) 17 gm PO DAILY PRN PRN Reason: Constipation Potassium Chloride (Klor-Con M20) 20 meq PO DAILY [facility] Last Admin: 02/20/18 08:30 Dose: 20 meq Prednisone (Prednisone) 5 mg PO DAILY [facility] Last Admin: 02/20/18 08:29 Dose: 5 mg Senna/Docusate Sodium (Senna Plus) 1 tab PO BID PRN PRN Reason: Constipation Sodium Chloride (Saline Flush) 10 ml FLUSH ASDIRECTED PRN PRN Reason: Keep Vein Open Discontinued Medications Digoxin (Lanoxin) 125 mcg PO Q48H [facility] Dorzolamide HCl (Trusopt 2% Ophth Soln) 0 ml EYEBOTH BID [facility] Last Admin: 02/20/18 08:31 Dose: 1 drop Ferrous Sulfate (Ferrous Sulfate) 325 mg PO DAILY [facility] Last Admin: 02/20/18 08:30 Dose: 325 mg Furosemide (Lasix) 40 mg PO BIDDIURETIC [facility] Last Admin: 02/20/18 08:29 Dose: 40 mg Sodium Chloride (Normal Saline) 1,000 mls @ 500 mls/hr IV ASDIRECTED [facility] Last Admin: 02/19/18 17:25 Dose: 500 mls/hr Sodium Chloride (Normal Saline) 1,000 mls @ 100 mls/hr IV ASDIRECTED [facility] Last Admin: 02/20/18 10:53 Dose: 100 mls/hr Lidocaine HCl (Xylocaine 2% Jelly) 0 ml .XX ONETIME ONE Stop: 02/19/18 16:01 Last Admin: 02/19/18 16:24 Dose: 30 ml Metoprolol Succinate (Toprol Xl) 50 mg PO DAILY [facility] Last Admin: 02/20/18 08:30 Dose: 50 mg Simvastatin (Zocor) 20 mg PO BEDTIME [facility] Last Admin: 02/20/18 02:42 Dose: Not Given Tolterodine Tartrate (Detrol) 1 mg PO BID [facility] Last Admin: 02/20/18 08:29 Dose: 1 mg - Exam Quality Assessment: DVT Prophylaxis General: Alert, Cooperative, No Acute Distress Lungs: Clear to Auscultation, Normal Respiratory Effort Cardiovascular: Regular Rate, Regular Rhythm, No Murmurs GI/Abdominal Exam: Soft, Non-Tender, No Organomegaly, No Distention - Problem List Review Problem List Initiated/Reviewed/Updated: Yes - My Orders Last 24 Hours: My Active Orders 02/19/18 17:30 CULTURE BLOOD [BC] Stat CULTURE BLOOD [BC] Stat Blood Culture x2 Reflex Set [OM.PC] Urgent 02/19/18 17:36 Resuscitation Status Routine 02/19/18 18:00 cefTRIAXone [Rocephin] 1 gm Sodium Chloride 0.9% [Normal Saline] 50 ml IV Q24H 02/19/18 18:30 Patient Status [ADT] Routine Ambulate [RC] QID Height and Weight [RC] 0500 Intake and Output [RC] QSHIFT Notify Provider Vital Signs [RC] ASDIRECTED Oxygen Therapy [RC] PRN Peripheral IV Care [RC] . DIRECTED RT Aerosol Therapy [RC] ASDIRECTED Up With Assistance [RC] ASDIRECTED Up to Chair [RC] QID VTE/DVT Education [RC] Per Unit Routine Vital Signs [RC] Q4H Acetaminophen [Tylenol] 650 mg PO Q4H PRN Acetaminophen/HYDROcodone [[place] 325-5 MG] 2 tab PO Q4H PRN Albuterol [Proventil Neb Soln] 2.5 mg NEB Q4H PRN Docusate Sodium/Sennosides [Senna Plus] 1 tab PO BID PRN Magnesium Hydroxide [Milk of Magnesia] 30 ml PO Q12H PRN Ondansetron [Zofran] 4 mg IV Q4H PRN Polyethylene Glycol 3350 [MiraLAX] 17 gm PO DAILY PRN Sodium Chloride 0.9% [Saline Flush] 10 ml FLUSH ASDIRECTED PRN Peripheral IV Insertion Adult [OM.PC] Routine VTE Pharmacological Contraindications [AST] Per Unit Routine 02/19/18 21:00 Nebivolol [Bystolic] 10 mg PO BID 02/19/18 Dinner 2 Gram Sodium Diet [DIET] 02/20/18 07:30 Levothyroxine [Synthroid] 75 mcg PO ACBREAKFAST Pantoprazole [ProTONIX] 40 mg PO ACBREAKFAST 02/20/18 09:00 Potassium Chloride [Klor-Con M20] 20 meq PO DAILY predniSONE 5 mg PO DAILY 02/20/18 13:00 Digoxin [Lanoxin] 125 mcg PO Q48H 02/20/18 14:00 Dorzolamide [Trusopt 2% Ophth Soln] 0 ml EYEBOTH TID 02/20/18 15:13 Convert IV to Saline Lock [OM.PC] Routine 02/20/18 21:00 Diltiazem [Cardizem Cd] 300 mg PO BEDTIME Latanoprost [Xalatan 0.005% Ophth Soln] 0 ml EYEBOTH BEDTIME 02/21/18 05:00 BASIC METABOLIC PANEL,BMP [CHEM] Timed CBC WITH AUTO DIFF [HEME] Timed INR,PT,PROTHROMBIN TIME [COAG] Timed 02/21/18 09:00 Furosemide [Lasix] 40 mg PO DAILY - Plan Plan:: ASSESSMENT AND PLAN SEVERE CYSTITIS WITH EARLY SEPSIS-history of progressive weakness with nausea vomiting over the past week. Stable since admission with no significant temperature elevation. Urine culture growing gram-negative rods, blood culture negative thus far. -Urine culture ID and sensitivities pending -Saline lock IV -Rocephin 1 g IV every 24 hours pending culture results RIGHT LOWER LEG ULCER -Ongoing management per Dr. Morales CHRONIC KIDNEY DISEASE STAGE III -Closely monitor urine output and renal function MAINTENANCE ISSUES -DVT prophylaxis; current therapy with warfarin should provide adequate DVT prophylaxis -GI prophylaxis; continue outpatient PPI therapy -Rai catheter; not indicated -Nutrition; 2 g sodium diet -Nicotine dependence; not required CODE STATUS-FULL CODE ADMISSION STATUS-patient will be admitted to inpatient status, expect at least a 2 night hospital stay for evaluation and management of problems as outlined above. At the time of this admission I do not reasonably expected evaluation and management of this problem will require more than a 96 hour hospital stay. DISPOSITION-anticipate discharge to home after the hospital stay. PRIMARY CARE PROVIDER-Dr. Trujillo
[2018-02-20] MEDS: cefTRIAXone 1 GM in Sodium Chloride 0.9% 50 ML IV SCH (17:14)
[2018-02-20] MEDS ORDERED: DILTIAZEM PO SCH ×2 (21:00)
[2018-02-20] MEDS ORDERED: Diltiazem 180 MG Cap.CD PO SCH (21:00)
[2018-02-20] MEDS ORDERED: Diltiazem 120 MG Cap.CD PO SCH (21:00)
[2018-02-20] MEDS ORDERED: Latanoprost 0.005% Ophth Soln 2.5 ML Bottle EYEBOTH SCH (21:00)
[2018-02-21 07:32] VITALS: BP 162/80
[2018-02-21] MEDS: Levothyroxine 25 MCG, Levothyroxine 50 MCG PO SCH ×2 (07:36)
[2018-02-21] MEDS: Pantoprazole 40 MG Tab.CR PO SCH (07:36)
[2018-02-21] MEDS: Acetaminophen/HYDROcodone 325-5 MG Tab PO PRN (07:36)
[2018-02-21] MEDS ORDERED: Furosemide 40 MG Tab PO SCH (09:00)
[2018-02-21] MEDS ORDERED: Ciprofloxacin 500 MG Tab PO SCH (09:00)
[2018-02-21] MEDS: Potassium Chloride 20 MEQ Tab.ER PO SCH (09:00)
[2018-02-21] MEDS: Dorzolamide 2% Ophth Soln 10 ML Bottle EYEBOTH SCH (09:01)
[2018-02-21] MEDS: predniSONE 5 MG Tab PO SCH (09:01)
--- NOTE | 2018-02-21 11:14 | PCM.DCSUM1 ---
Discharge Summary - Hospital Course Brief History: Ms. Oreilly is an 87-year-old woman admitted through the emergency department with weakness and fever secondary to urinary tract infection and sepsis. - Discharge Data Discharge Date: 02/21/18 Discharge Disposition: DC/Tfer to SNF 03 Condition: Fair - Discharge Diagnosis/Problem(s) (1) Elevated INR SNOMED Code(s): 565299319 ICD Code: R79.1 - ABNORMAL COAGULATION PROFILE Status: Acute Current Visit: Yes (2) Dehydration SNOMED Code(s): 01541574 ICD Code: E86.0 - DEHYDRATION Status: Acute Current Visit: Yes (3) UTI (urinary tract infection) SNOMED Code(s): 72109056 ICD Code: N39.0 - URINARY TRACT INFECTION, SITE NOT SPECIFIED Status: Acute Current Visit: Yes (4) Stage III chronic kidney disease SNOMED Code(s): 856878778 ICD Code: N18.3 - CHRONIC KIDNEY DISEASE, STAGE 3 (MODERATE) Status: Chronic Current Visit: No (5) Sepsis SNOMED Code(s): 24705314 ICD Code: A41.9 - SEPSIS, UNSPECIFIED ORGANISM Status: Acute Current Visit: Yes - Patient Summary/Data Hospital Course: Ms. Oreilly is an 87-year-old woman who was admitted through the emergency department with progressive weakness, nausea, vomiting secondary to underlying severe cystitis. She has had ongoing difficulty with an ulcer on her right lower leg and has been followed on a regular basis by Dr. Morales. Over the past week has had progressive weakness decrease in appetite with nausea and vomiting. On evaluation in the emergency department her urine shows evidence of significant infection, packed WBCs with positive leukocyte esterase and nitrites. Because of dementia and marked hearing impairment Ms. Oreilly is unable to provide significant information concerning recent symptoms or review of systems. On admission she was given IV fluids for hydration, blood and urine cultures were obtained. She was started on IV antibiotic therapy with Rocephin and was felt to have a component of early sepsis with elevation in heart rate and fever. She improved significantly over the next few days of hospitalization, urine culture grew out pansensitive Citrobacter, blood cultures remain negative at the time of discharge. Nausea and vomiting had resolved and she was eating well with no significant difficulty. She will remain on oral antibiotic therapy with ciprofloxacin for an additional 3 days. INR level was found to be significantly elevated on admission and warfarin was held throughout her hospital stay. Warfarin will be resumed tomorrow at 1.25 mg daily and a follow- up INR will be obtained on February 24. Follow-up appointment will be scheduled with Dr. Morales for ongoing management of her right lower leg ulcer. Activity will be as tolerated and she will resume her usual diet. - Patient Instructions Diet: Low Sodium Activity: As Tolerated Other/Special Instructions: Lab on February 24; INR - Discharge Plan *PRESCRIPTION DRUG MONITORING PROGRAM REVIEWED*: Not Applicable *COPY OF PRESCRIPTION DRUG MONITORING REPORT IN PATIENT NAVA: Not Applicable Prescriptions/Med Rec: Ciprofloxacin HCl [Cipro] 500 mg PO BID #6 tablet Home Medications: Home Meds Acetaminophen [Tylenol Extra Strength] 1,000 mg PO TID 02/19/18 [History] Acetaminophen/HYDROcodone [[place] 325-5 MG] 1 tab PO Q4H PRN 02/19/18 [History] B Complex W-C No.20/Folic Acid [Nephrocaps Softgel] 1 mg PO DAILY 02/19/18 [ History] Brinzolamide [Azopt 1% Ophth Susp] 1 drop EYEBOTH TID 02/19/18 [History] Cholecalciferol (Vitamin D3) [Vitamin D3] 1,000 units PO BEDTIME 02/19/18 [ History] Digoxin [Digox] 125 mcg PO ASDIRECTED 02/19/18 [History] Diltiazem HCl [Cartia Xt] 300 mg PO BEDTIME 02/19/18 [History] Docusate Sodium [Colace] 100 mg PO DAILY 02/19/18 [History] Folic Acid 1 mg PO DAILY 02/19/18 [History] Furosemide 40 mg PO DAILY 02/19/18 [History] Latanoprost/Pf [Latanoprost 0.005% Eye Drop] 1 drop EYEBOTH BEDTIME 02/19/18 [ History] Levothyroxine 75 mcg PO DAILY 02/19/18 [History] Methotrexate Sodium [Methotrexate] 7.5 mg PO WEEKLY 02/19/18 [History] Nebivolol HCl [Bystolic] 10 mg PO BID 02/19/18 [History] Omeprazole 40 mg PO DAILY 02/19/18 [History] Ondansetron [Zofran ODT] 4 mg PO Q6H PRN 02/19/18 [History] Potassium Chloride [Klor-Con M20] 20 meq PO DAILY 02/19/18 [History] Ciprofloxacin HCl [Cipro] 500 mg PO BID #6 tablet 02/21/18 [Rx] Warfarin [Coumadin] 1.25 mg PO DAILY #0 02/21/18 [Rx] Referrals: Cooper Trujillo MD [Primary Care Provider] - - Discharge Summary/Plan Comment DC Time >30 min.: No - Patient Data Vitals - Most Recent: Last Vital Signs Temp 96.7 F 02/21/18 07:30 Pulse 55 L 02/21/18 09:01 Resp 16 02/21/18 07:30 BP 162/80 H 02/21/18 09:01 Pulse Ox 95 02/21/18 07:30 Weight - Most Recent: 136 lb I&O - Last 24 hours: Intake & Output 02/20/18 02/21/18 02/21/18 22:59 06:59 14:59 Intake Total 1565 120 240 Balance 1565 120 240 Lab Results - Last 24 hrs: Laboratory Results - last 24 hr 02/21/18 02/21/18 02/21/18 Range/Units 04:41 04:41 04:41 WBC 7.9 (4.5-11.0) K/uL RBC 3.44 (3.30-5.50) M/uL Hgb 10.2 L (12.0-15.0) g/dL Hct 31.6 L (36.0-48.0) % MCV 92 (80-98) fL MCH 30 (27-31) pg MCHC 32 (32-36) % Plt Count 444 H (150-400) K/uL Neut % (Auto) 55 (36-66) % Lymph % (Auto) 26 (24-44) % [place] % (Auto) 13 H (2-6) % Eos % (Auto) 6 H (2-4) % Baso % (Auto) 0 (0-1) % PT 35.8 H (9.5-12.0) sec INR 3.49 H (0.80-1.20) Sodium 141 (140-148) mmol/L Potassium 4.4 (3.6-5.2) mmol/L Chloride 112 H (100-108) mmol/L Carbon Dioxide 19 L (21-32) mmol/L Anion Gap 14.4 H (5.0-14.0) mmol/L BUN 14 (7-18) mg/dL Creatinine 1.0 (0.6-1.0) mg/dL Est Cr Clr Drug Dosing 29.01 mL/min Estimated GFR (MDRD) 53 L (>60) Glucose 92 (74-106) mg/dL Calcium 7.7 L (8.5-10.1) mg/dL TASIA Results - Last 24 hrs: Microbiology 02/19/18 17:19 Urine Culture - Final Urine, Bladder Citrobacter Koseri 02/19/18 17:30 Aerobic Blood Culture - Preliminary Blood - Venous NO GROWTH AFTER 1 DAY Anaerobic Blood Culture - Preliminary NO GROWTH AFTER 1 DAY 02/19/18 17:30 Aerobic Blood Culture - Preliminary Blood - Venous - Lab Draw NO GROWTH AFTER 1 DAY Anaerobic Blood Culture - Preliminary NO GROWTH AFTER 1 DAY Med Orders - Current: Current Medications Acetaminophen (Tylenol) 650 mg PO Q4H PRN PRN Reason: Pain (Mild 1-3)/fever Last Admin: 02/19/18 20:44 Dose: 650 mg Hydrocodone Bitart/Acetaminophen ([place] 325-5 Mg) 2 tab PO Q4H PRN PRN Reason: Pain (moderate 4-6) Last Admin: 02/21/18 07:36 Dose: 2 tab Albuterol (Proventil Neb Soln) 2.5 mg NEB Q4H PRN PRN Reason: Shortness Of Breath/wheezing Ciprofloxacin (Ciprofloxacin Hcl) 500 mg PO BIDAC [facility] Last Admin: 02/21/18 09:00 Dose: 500 mg Digoxin (Lanoxin) 125 mcg PO Q48H [facility] Last Admin: 02/20/18 13:42 Dose: 125 mcg Diltiazem HCl 120 mg/ (Diltiazem HCl 180 mg) 300 mg PO BEDTIME [facility] Last Admin: 02/20/18 21:47 Dose: 300 mg Dorzolamide HCl (Trusopt 2% Ophth Soln) 0 ml EYEBOTH TID [facility] Last Admin: 02/21/18 09:01 Dose: 1 drop Furosemide (Lasix) 40 mg PO DAILY [facility] Last Admin: 02/21/18 09:00 Dose: 40 mg Latanoprost (Xalatan 0.005% Ophth Soln) 0 ml EYEBOTH BEDTIME [facility] Last Admin: 02/20/18 21:49 Dose: 1 drop Levothyroxine Sodium 25 mcg/ (Levothyroxine Sodium 50 mcg) 75 mcg PO ACBREAKFAST [facility] Last Admin: 02/21/18 07:36 Dose: 75 mcg Magnesium Hydroxide (Milk Of Magnesia) 30 ml PO Q12H PRN PRN Reason: Constipation Nebivolol (Bystolic) 10 mg PO BID [facility] Last Admin: 02/21/18 09:01 Dose: 10 mg Ondansetron HCl (Zofran) 4 mg IV Q4H PRN PRN Reason: Nausea/Vomiting Pantoprazole Sodium (Protonix) 40 mg PO ACBREAKFAST [facility] Last Admin: 02/21/18 07:36 Dose: 40 mg Polyethylene Glycol (Miralax) 17 gm PO DAILY PRN PRN Reason: Constipation Potassium Chloride (Klor-Con M20) 20 meq PO DAILY [facility] Last Admin: 02/21/18 09:00 Dose: 20 meq Prednisone (Prednisone) 5 mg PO DAILY [facility] Last Admin: 02/21/18 09:01 Dose: 5 mg Senna/Docusate Sodium (Senna Plus) 1 tab PO BID PRN PRN Reason: Constipation Sodium Chloride (Saline Flush) 10 ml FLUSH ASDIRECTED PRN PRN Reason: Keep Vein Open Discontinued Medications Digoxin (Lanoxin) 125 mcg PO Q48H [facility] Dorzolamide HCl (Trusopt 2% Ophth Soln) 0 ml EYEBOTH BID [facility] Last Admin: 02/20/18 08:31 Dose: 1 drop Ferrous Sulfate (Ferrous Sulfate) 325 mg PO DAILY [facility] Last Admin: 02/20/18 08:30 Dose: 325 mg Furosemide (Lasix) 40 mg PO BIDDIURETIC [facility] Last Admin: 02/20/18 08:29 Dose: 40 mg Sodium Chloride (Normal Saline) 1,000 mls @ 500 mls/hr IV ASDIRECTED [facility] Last Admin: 02/19/18 17:25 Dose: 500 mls/hr Ceftriaxone Sodium 1 gm/ (Sodium Chloride) 50 mls @ 100 mls/hr IV Q24H [facility] Last Admin: 02/20/18 17:14 Dose: 100 mls/hr Sodium Chloride (Normal Saline) 1,000 mls @ 100 mls/hr IV ASDIRECTED [facility] Last Admin: 02/20/18 10:53 Dose: 100 mls/hr Lidocaine HCl (Xylocaine 2% Jelly) 0 ml .XX ONETIME ONE Stop: 02/19/18 16:01 Last Admin: 02/19/18 16:24 Dose: 30 ml Metoprolol Succinate (Toprol Xl) 50 mg PO DAILY [facility] Last Admin: 02/20/18 08:30 Dose: 50 mg Simvastatin (Zocor) 20 mg PO BEDTIME [facility] Last Admin: 02/20/18 02:42 Dose: Not Given Tolterodine Tartrate (Detrol) 1 mg PO BID [facility] Last Admin: 02/20/18 08:29 Dose: 1 mg - Exam General: Reports: Alert, Cooperative, No Acute Distress Lungs: Reports: Clear to Auscultation, Normal Respiratory Effort Cardiovascular: Reports: Regular Rate, Regular Rhythm, No Murmurs GI/Abdominal Exam: Soft, Non-Tender, No Organomegaly, No Distention Extremities: Other (Ulcer left lower leg) *Q Meaningful Use (DIS) - VTE *Q VTE Pharmacological Contraindications *Q: High INR Value
== END 2018-02-21 13:01 | DRG 872 ==
LOC: JP.ED 14:24 → JP.MS 17:31
PROVIDERS: ADMIT Hospitalist; ATTEND Hospitalist
DX: A41.59 Other Gram-negative sepsis (principal); N39.0 Urinary tract infection, site not specified; L97.819 Non-pressure chronic ulcer of other part of right lower leg with unspecified severity; B96.89 Other specified bacterial agents as the cause of diseases classified elsewhere; I12.9 Hypertensive chronic kidney disease with stage 1 through stage 4 chronic kidney disease, or unspecified chronic kidney disease; N18.3 Chronic kidney disease, stage 3 (moderate); E86.0 Dehydration; I48.91 Unspecified atrial fibrillation; Z86.718 Personal history of other venous thrombosis and embolism; R79.1 Abnormal coagulation profile; E03.9 Hypothyroidism, unspecified; R53.1 Weakness; R11.2 Nausea with vomiting, unspecified; F03.90 Unspecified dementia, unspecified severity, without behavioral disturbance, psychotic disturbance, mood disturbance, and anxiety; E78.00 Pure hypercholesterolemia, unspecified; H40.9 Unspecified glaucoma; Z93.3 Colostomy status; M19.90 Unspecified osteoarthritis, unspecified site; Z85.828 Personal history of other malignant neoplasm of skin; Z87.440 Personal history of urinary (tract) infections; K59.09 Other constipation; K21.9 Gastro-esophageal reflux disease without esophagitis; Z87.01 Personal history of pneumonia (recurrent); Z95.0 Presence of cardiac pacemaker; H91.90 Unspecified hearing loss, unspecified ear; H54.7 Unspecified visual loss; Z79.01 Long term (current) use of anticoagulants; Z79.52 Long term (current) use of systemic steroids; Z88.8 Allergy status to other drugs, medicaments and biological substances; Z89.431 Acquired absence of right foot; Z96.659 Presence of unspecified artificial knee joint
CPT/HCPCS: 36415; 80048; 80053; 80162; 81001; 83605; 83735; 84443; 85025; 85610; 87040; 87086; 87088; 87186; 99283; 99285; A9270-GY; J0696; J7030; J7050